=== PATIENT | female | born 1935 | race Caucasian/White ===

== ENCOUNTER 2017-04-17 06:52 | Inpatient (IN) | payer MEDICARE, BC ==
[2017-04-17] VITALS (10 sets, daily range): BP systolic 139–198; BP diastolic 62–77; PULSE 70–84; RESP 20–30; TEMP 97.8–99.4; O2SAT 92–100
[~2017-04-17] VITALS: Ht 162.6 cm; Wt 72.1 kg
[2017-04-17] MEDS ORDERED: SODIUM CHLORIDE 0.9% FLUSH 10 ML FLUSH IVF PRN (07:00)
--- NOTE | 2017-04-17 07:08 | PD ---
HPI Chief Complaint: Respiratory Distress Time Seen by Provider: 07:00 Travel History International Travel<30 days: No Contact w/Intl Traveler<30days: No Traveled to known affect area: No History of Present Illness HPI 81-year-old female patient presents to the ER brought in by EMS, apparently has been having several days of worsening shortness of breath and dyspnea on exertion, was initially saturating at 70% according to EMS, they had given her Lasix, nitroglycerin, and put her on BiPAP. She reports feeling some improvement with the treatment. She currently is still complaining of shortness of breath. She denies any fevers, vomiting, chest pains, or other symptoms. Modifying Factors: None Associated Signs & Symptoms: Shortness of breath, dyspnea on exertion Risk Factors: None PFSH Past Medical History ?: Not Social History Tobacco Use: No Allergies-Medications (Allergen,Severity, Reaction): Coded Allergies: No Known Allergies (Unverified , 04/17/17) Review of Systems Except as stated in HPI: all other systems reviewed are Neg Physical Exam Narrative GENERAL: Well-developed elderly white female patient currently in moderate respiratory distress on BiPAP. Awake and oriented 3. Able to answer words at a time. SKIN: Focused skin assessment warm/dry. HEAD: Atraumatic. Normocephalic. EYES: Pupils equal and round. No scleral icterus. No injection or drainage. ENT: No nasal bleeding or discharge. Mucous membranes pink and moist. NECK: Trachea midline. Supple. CARDIOVASCULAR: Regular rate and rhythm. No murmur appreciated. RESPIRATORY: Moderate accessory muscle use. Intermittent wheezes to rule out with decreased breath sounds at the bases. Breath sounds equal bilaterally. GASTROINTESTINAL: Abdomen soft, non-tender, nondistended. Hepatic and splenic margins not palpable. MUSCULOSKELETAL: No obvious deformities. No clubbing. No cyanosis. Bilateral was 1 pitting edema the legs. NEUROLOGICAL: Awake and alert. No obvious cranial nerve deficits. Motor grossly within normal limits. Normal speech. PSYCHIATRIC: Appropriate mood and affect; insight and judgment normal. Data Data Last Documented VS Vital Signs Date Time Temp Pulse Resp B/P (MAP) Pulse Ox O2 Delivery O2 Flow Rate FiO2 04/17/17 07:00 84 30 177/77 (110) 95 Orders Orders Complete Blood Count With Diff (04/17/17 07:00) Comprehensive Metabolic Panel (04/17/17 07:00) B-Type Natriuretic Peptide (04/17/17 07:00) Act Partial Throm Time (Ptt) (04/17/17:00) Prothrombin Time / Inr (Pt) (04/17/17:00) Ckmb (Isoenzyme) Profile (04/17/17:00) Troponin I (04/17/17 07:00) Blood Culture (04/17/17:00) Iv Access Insert/Monitor (04/17/17:00) Electrocardiogram (04/17/17:00) Ecg Monitoring (04/17/17:00) Oximetry (04/17/17:00) Oxygen Administration (04/17/17:00) Chest, Single Ap (04/17/17:) Sodium Chloride 0.9% Flush (Ns Flush) (04/17/17:00) Resp Bipap / Cpap Non Invas Vt (04/17/17:00) MDM Medical Decision Making Medical Screen Exam Complete: Yes Emergency Medical Condition: Yes Medical Record Reviewed: Yes Interpretation(s) EKG shows NSR, no ST elevation or depression, and no arrhythmias. No significant T-wave inversions. Differential Diagnosis Dyspnea on exertion/shortness of breath: CHF versus COPD versus pneumonia Narrative Course BiPAP was continued in the ER. I have discussed CODE STATUS with the patient and she wants to remain full code. Lab work and chest x-ray ordered for the patient. Planning to admit for further treatment. Physician Communication Physician Communication Case is signed out at [address] Sepulveda for further treatment and disposition. Diagnosis Primary Impression: Dyspnea on exertion Admitting Information Admitting Physician Requests: Admit Roddy Luo MD Apr 17, 2017 07:07
--- NOTE | 2017-04-17 07:25 | RADRPT ---
EXAM DATE/TIME: 04/17/2017 07:03 [facility] COMPARISON: No previous studies available for comparison. INDICATIONS : Short of breath MEDICAL HISTORY : None. SURGICAL HISTORY : None. ENCOUNTER: Initial ACUITY: 1 day PAIN SCORE: Non-responsive. LOCATION: chest FINDINGS: The heart is mildly enlarged. There are advanced, chronic appearing interstitial changes within the p ulmonary parenchyma. No effusion is seen. The exam demonstrates calcified nodules along the left chest wall. The patient appears to be post lef t mastectomy. The visualized bony structures demonstrate degenerative changes but are otherwise intact. CONCLUSION: 1. Cardiomegaly. 2. There are advanced interstitial changes which appear chronic. There is no pleural effusion. 3. There are calcified nodules in the chest wall along the left axillary region. The patient is post left mastectomy. No prior imaging is available to assess for stability. The calcified nature of these would suggest they're likely benign. Bradley Rincon MD on April 17, 2017 at 7:21 Board Certified Radiologist. This report was verified electronically.
[2017-04-17 07:33] LABS: AUTOMATED NEUTROPHIL # 9.6 TH/MM3 (1.8-7.7); BASOPHIL # 0.1 TH/MM3 (0-0.2); BASOPHIL % 0.8 % (0.0-2.0); EOSINOPHIL # 0.2 TH/MM3 (0-0.4); HEMATOCRIT 33.8 % (35.0-46.0); HEMO FLAGS DIFF FINAL; LYMPH % 10.1 % (9.0-44.0); LYMPHOCYTE # 1.2 TH/MM3 (1.0-4.8); MEAN CELL VOLUME 78.1 FL (80.0-100.0); MEAN CORPUSCULAR HEMOGLOBIN 26.3 PG (27.0-34.0); MEAN CORPUSCULAR HGB CONC 33.7 % (32.0-36.0); MONO % 8.9 % (0.0-8.0); NEUT % 78.2 % (16.0-70.0); PLATELET COUNT 377 TH/MM3 (150-450); RED BLOOD COUNT 4.33 MIL/MM3 (4.00-5.30); WHITE BLOOD COUNT 12.2 TH/MM3 (4.0-11.0)
[2017-04-17 07:36] LABS: INTERNATIONAL NORMALIZED RATIO 0.9 RATIO; PROTHROMBIN TIME - PATIENT 10.1 SEC (9.8-11.6)
[2017-04-17 07:44] LABS: ALKALINE PHOSPHATASE 100 U/L (45-117); ALT (GPT) 18 U/L (10-53); ANION GAP 7 MEQ/L (5-15); AST (GOT) 14 U/L (15-37); BICARBONATE 27.2 MEQ/L (21.0-32.0); BLOOD UREA NITROGEN 16 MG/DL (7-18); CHLORIDE 98 MEQ/L (98-107); GLOMERULAR FILTRATION RATE 66 ML/MIN (>89); POTASSIUM 4.6 MEQ/L (3.5-5.1); SODIUM (NA) 132 MEQ/L (136-145); TOTAL BILIRUBIN ADULT 0.4 MG/DL (0.2-1.0)
[2017-04-17 07:45] LABS: CREATINE KINASE 75 U/L (26-192)
[2017-04-17] MEDS ORDERED: NITROGLYCERIN 2% OINT 1 GM PACKET TOPICAL ONE (07:45)
[2017-04-17] MEDS ORDERED: ENALAPRILAT 1.25 MG/ML VIAL IV PUSH ONE (07:45)
[2017-04-17] MEDS ORDERED: ASPIRIN 325 MG TAB PO ONE (07:45)
[2017-04-17] MEDS ORDERED: BETA0.0554 TOPICAL (07:54)
[2017-04-17] MEDS ORDERED: UBID50CA4 PO (07:54)
[2017-04-17] MEDS ORDERED: FERR325C PO (07:54)
[2017-04-17] MEDS ORDERED: ISOS60TA PO (07:54)
[2017-04-17] MEDS ORDERED: [UNRECOGNIZED DRUG - MIXTURE] (07:54)
[2017-04-17] MEDS ORDERED: ESOM1CAP16 PO (07:54)
[2017-04-17] MEDS ORDERED: ASPI81CH CHEW (07:54)
[2017-04-17] MEDS ORDERED: JANU50TA8 PO (07:54)
[2017-04-17] MEDS ORDERED: CARV12.52 PO (07:54)
[2017-04-17] MEDS ORDERED: ATOR10TA15 PO (07:54)
[2017-04-17] MEDS ORDERED: FURO20TA PO (07:54)
[2017-04-17] MEDS ORDERED: NITR1SUB3 SL (07:54)
[2017-04-17] MEDS ORDERED: AZEL1SPR2 EACH NARE (07:54)
[2017-04-17] MEDS ORDERED: RAMI10CA PO (07:54)
[2017-04-17] MEDS ORDERED: CHOL1CAP8 PO (07:54)
[2017-04-17] MEDS ORDERED: AMLO5TAB2 PO (07:54)
[2017-04-17] MEDS ORDERED: CALCTAB19 PO (07:54)
[2017-04-17] MEDS ORDERED: CYAN500S SL (07:54)
[2017-04-17] MEDS ORDERED: IOHEXOL 350 MG/ML 10 ML VIAL (for RAD DIAG) IVCONTRAST ONE (08:17)
--- NOTE | 2017-04-17 08:17 | PD ---
Data Data Last Documented VS Vital Signs Date Time Temp Pulse Resp B/P (MAP) Pulse Ox O2 Delivery O2 Flow Rate FiO2 04/17/17 09:25 70 24 152/70 (97) 94 Nasal Cannula 4.00 04/17/17 07:27 100 04/17/17 07:27 98.2 Orders Orders Complete Blood Count With Diff (04/17/17 07:00) Comprehensive Metabolic Panel (04/17/17 07:00) B-Type Natriuretic Peptide (04/17/17 07:00) Act Partial Throm Time (Ptt) (04/17/17 07:00) Prothrombin Time / Inr (Pt) (04/17/17 07:00) Ckmb (Isoenzyme) Profile (04/17/17 07:00) Troponin I (04/17/17 07:00) Blood Culture (04/17/17 07:00) Iv Access Insert/Monitor (04/17/17 07:00) Electrocardiogram (04/17/17 07:00) Ecg Monitoring (04/17/17 07:00) Oximetry (04/17/17 07:00) Oxygen Administration (04/17/17 07:00) Chest, Single Ap (04/17/17 07:00) Sodium Chloride 0.9% Flush (Ns Flush) (04/17/17 07:00) Resp Bipap / Cpap Non Invas Vt (04/17/17 07:00) Lactic Acid Sepsis Protocol (04/17/17 07:08) Ct Pulmonary Angiogram (04/17/17 ) Aspirin (Aspirin) (04/17/17 07:45) Urinary Catheter Insert/Apply (04/17/17 07:41) Nitroglycerin 2% Oint (Nitroglycerin 2% (04/17/17 07:45) Enalaprilat Inj (Vasotec Inj) (04/17/17 07:45) Iohexol 350 Inj (Omnipaque 350 Inj) (04/17/17 08:17) Albuterol-Ipratropium Neb (Duoneb Neb) (04/17/17 09:00) Aztreonam Inj (Azactam Inj) (04/17/17 09:00) Azithromycin Inj (Zithromax Inj) (04/17/17 09:00) Admit Order (Ed Use Only) (04/17/17 09:37) Labs Laboratory Tests Test 04/17/17 07:09 White Blood Count 12.2 TH/MM3 Red Blood Count 4.33 MIL/MM3 Hemoglobin 11.4 GM/DL Hematocrit 33.8 % Mean Corpuscular Volume 78.1 FL Mean Corpuscular Hemoglobin 26.3 PG Mean Corpuscular Hemoglobin Concent 33.7 % Red Cell Distribution Width 16.0 % Platelet Count 377 TH/MM3 Mean Platelet Volume 8.5 FL Neutrophils (%) (Auto) 78.2 % Lymphocytes (%) (Auto) 10.1 % Monocytes (%) (Auto) 8.9 % Eosinophils (%) (Auto) 2.0 % Basophils (%) (Auto) 0.8 % Neutrophils # (Auto) 9.6 TH/MM3 Lymphocytes # (Auto) 1.2 TH/MM3 Monocytes # (Auto) 1.1 TH/MM3 Eosinophils # (Auto) 0.2 TH/MM3 Basophils # (Auto) 0.1 TH/MM3 CBC Comment DIFF FINAL Differential Comment Prothrombin Time 10.1 SEC Prothromb Time International Ratio 0.9 RATIO Activated Partial Thromboplast Time 24.0 SEC Blood Urea Nitrogen 16 MG/DL Creatinine 0.83 MG/DL Random Glucose 244 MG/DL Total Protein 7.3 GM/DL Albumin 3.0 GM/DL Calcium Level 9.1 MG/DL Alkaline Phosphatase 100 U/L Aspartate Amino Transf (AST/SGOT) 14 U/L Alanine Aminotransferase (ALT/SGPT) 18 U/L Total Bilirubin 0.4 MG/DL Sodium Level 132 MEQ/L Potassium Level 4.6 MEQ/L Chloride Level 98 MEQ/L Carbon Dioxide Level 27.2 MEQ/L Anion Gap 7 MEQ/L Estimat Glomerular Filtration Rate 66 ML/MIN Lactic Acid Level 1.5 mmol/L Total Creatine Kinase 75 U/L Troponin I LESS THAN 0.02 NG/ML B-Type Natriuretic Peptide 200 PG/ML [facility] Medical Record Reviewed: Yes Supervised Visit with DILLON: Yes Differential Diagnosis CHF, PE, pneumonia Narrative Course I have reviewed the patient's electronic medical record. I reviewed her [facility] medical report detailing her medical history and medications. This patient is checked out to me by Dr. Brooks at 7 AM. The patient came in just a few minutes prior to that and Dr. Brooks initiated the workup. This patient arrives critically ill. She has had shortness of breath for 2 days as well as periodic exertional chest heaviness in the center sternum. She is a CAD with a 2004 circumflex angioplasty, diabetic and hypertensive and hyperlipidemic patient. She reports that she is visiting here from [place] for a week. She did have a stress test in July she says. She denies HI or congestive heart failure or pulmonary disease history. She was a smoker in the past but no longer smokes. She arrives in respiratory failure with saturations in the 70s. She was placed on BiPAP. When I reevaluated her on BiPAP, she is less short of breath but still not doing well. She is no longer having chest pain at this time. Extended cardiac monitoring reveals sinus rhythm in the 80s. Saturation on BiPAP is excellent but as soon as I take her off the BiPAP and place her on 5 L nasal cannula she drops into the mid 80s. I reviewed her chest x-ray which shows cardiomegaly. I was not clear if the x- ray represents pulmonary edema versus chronic interstitial changes and the radiologist favors chronic interstitial changes. There are no priors to compare. I reviewed her EKG which shows sinus rhythm with no acute ST elevation but there are some downsloping ST depressions in lateral leads. I gave her an aspirin She had 70 mg IV Lasix given by paramedics in route CBC is normal Metabolic profile is normal LFTs are normal CK is negative Troponin is negative BNP is 200, equivocal Coagulation studies are normal CT pulmonary angiogram is negative for PE. There is consolidation that could be consistent with a pneumonia. Patient has Improved significantly. I weaned her down to 4 L nasal cannula and she saturates at 95% on that. She reports significant improvement clinically. She diuresed about 600 cc of clear yellow urine. Patient requires hospitalization but at this point I don't think she needs intensive care. I've discussed with the hospitalist will admit Critical Care Narrative Aggregate critical care time was 40 minutes. Time to perform other separately billable procedures was not included in the critical care time. My time did not include minutes spent treating any other patients simultaneously or on activities that did not directly contribute to the patient's treatment. The services I provided to this patient were to treat and/or prevent clinically significant deterioration that could result in: Respiratory failure, cardiopulmonary arrest, hypoxemic brain injury, cardiac arrhythmia I provided critical care services requiring my management, as noted below: Chart data review, documentation time, medication orders and management, vital sign assessments/reviewing monitor data, ordering and reviewing lab tests, ordering and interpreting/reviewing x-rays and diagnostic studies, care of the patient and discussion of the patient with the admitting physicians. Diagnosis Primary Impression: Acute respiratory failure with hypoxia Additional Impression: Chest pain in adult Vicente Moore MD Apr 17, 2017 07:39
--- NOTE | 2017-04-17 08:40 | RADRPT ---
EXAM DATE/TIME: 04/17/2017 08:09 [facility] COMPARISON: CHEST SINGLE AP, April 17, 2017, 7:03. INDICATIONS : Shortness of breath and substernal chest pain today. IV CONTRAST: 70 cc Omnipaque 350 (iohexol) IV RADIATION DOSE: 13.81 CTDIvol (mGy) MEDICAL HISTORY : mitral valve failure SURGICAL HISTORY : None. ENCOUNTER: Initial ACUITY: 1 day PAIN SCALE: 6/10 LOCATION: substernal chest TECHNIQUE: Volumetric scanning of the chest was performed using a pulmonary embolism protocol MIP images were re constructed. Using automated exposure control and adjustment of the mA and/or kV according to patien t size, radiation dose was kept as low as reasonably achievable to obtain optimal diagnostic quality images. DICOM format image data is available electronically for review and comparison. Follow-up recommendations for detected pulmonary nodules are based at a minimum on nodule size and pa tient risk factors according to Fleischner Society Guidelines. FINDINGS: The examination is of adequate diagnostic quality. No pulmonary embolus is identified. The heart is mildly enlarged. There is atherosclerotic plaquing in the coronary arteries. There are o ld, calcified lymph nodes seen in the right dahlia and the mediastinum. Imaging through the pulmonary parenchyma demonstrates interstitial fibrotic changes. There is a small effusion on the right. There are consolidative changes in the right lower lobe. There is infiltrate and consolidation in the right upper lobe. Note is also made of a 2.5 x 1.5 cm pleural-based nodule along the posterior aspect of the left upper lobe. Examination the osseous structures demonstrate multiple old left-sided rib fractures. There is exuber ant callus and heterotopic bone around the areas of fracture. Note is made of a left mastectomy. CONCLUSION: 1. No pulmonary embolus is identified. 2. Interstitial fibrotic changes. 3. There are old calcified nodes in the right dahlia. 4. There is a small right basilar effusion. 5. Mild cardiomegaly. 6. There is infiltrate in the right upper lobe with consolidation concerning for pneumonia. 7. There are consolidative change in both lung bases. 8. 2.5 x 1.5 cm pleural-based nodule on the left. This is nonspecific in appearance by CT. 9. Old rib fractures on the left with exuberant calcified callus formation. Bradley Rincon MD on April 17, 2017 at 8:32 Board Certified Radiologist. This report was verified electronically.
[2017-04-17] MEDS ORDERED: AZITHROMYCIN INJ 500 MG in SODIUM CHLOR 0.9% 250 ML INJ 250 ML IV ONE (09:00)
[2017-04-17] MEDS ORDERED: AZTREONAM INJ 2,000 MG in SODIUM CHLORIDE 0.9% INJ 100 ML IV ONE (09:00)
[2017-04-17] MEDS ORDERED: RESP: ALBUTEROL 2.5 MG/IPRATROPIUM 0.5 MG NEB (SCH) NEB ONE (09:00)
[2017-04-17] MEDS ORDERED: ACETAMINOPHEN 325 MG TAB PO PRN ×2 (10:30)
[2017-04-17] MEDS ORDERED: ENALAPRILAT 2.5 MG/2 ML VIAL IV PUSH PRN (10:30)
[2017-04-17] MEDS ORDERED: RESP: ALBUTEROL 2.5 MG/IPRATROPIUM 0.5 MG NEB (PRN) NEB (10:30)
[2017-04-17] MEDS ORDERED: SODIUM CHLORIDE 0.9% FLUSH 10 ML FLUSH IV FLUSH PRN (10:30)
[2017-04-17] MEDS ORDERED: MAGNESIUM HYDROXIDE SUSP 30 ML CUP PO PRN (10:30)
[2017-04-17] MEDS ORDERED: NALOXONE HCL 0.4 MG/ML AMP IV PUSH PRN (10:30)
[2017-04-17] MEDS ORDERED: ONDANSETRON HCL 4 MG/2 ML VIAL IVP PRN (10:30)
[2017-04-17] MEDS ORDERED: NITROGLYCERIN 0.4 MG SL 25 TABS/BTL SL PRN (10:45)
[2017-04-17] MEDS ORDERED: GLUCAGON 1 MG/ML VIAL OTHER PRN (10:45)
[2017-04-17] MEDS ORDERED: DEXTROSE 50% IN WATER 50 ML VIAL(D50) IV PUSH PRN (10:45)
--- NOTE | 2017-04-17 10:50 | HHI.HP ---
HPI Service [facility] Primary Care Physician Unknown Admission Diagnosis acute hypoxic resp failure, chest pain Diagnoses: (1) Acute respiratory failure with hypoxia (2) Flash pulmonary edema (3) CHF exacerbation (4) Atypical chest pain (5) Benign hypertension (6) Hyperlipidemia (7) Diabetes mellitus, type II Chief Complaint: Shortness of breath Travel History International Travel<30 Days: No Contact w/Intl Traveler <30 Da: No Traveled to Known Affected Are: No History of Present Illness 81-year-old female with a history of diabetes type 2, CHF, hypertension was brought to the ED for evaluation of worsening symptoms or shortness of breath times several days duration along with an acute onset of substernal chest pain without any radiation and rated 7/10 in intensity. Patient has been have been traveling from [place] to [place] and now to [place]. Initially left [place] 2 weeks ago, however have arrived here in [facility] for a reunion since Tuesday. She noted over the past few days worsening shortness of breath on exertion without any symptoms of cough or chest pain. However early this morning at 5 AM, patient complains of acute onset of chest pain along with severe dyspnea and requested that her take her to the hospital. She has no febrile episode or denies any bladder or bowel dysfunction. Patient had a history of cardiac stent placed, and the last one was placed in 2002 -2003. There has been no change in her medications. Review of Systems Except as stated in HPI: all other systems reviewed are Neg Past Family Social History Past Medical History Hypertension Hyperlipidemia Diabetes type 2 History of breast cancer Past Surgical History Left breast surgery Cataract surgery Cardiac stents 2 Reported Medications See EMR Allergies: Coded Allergies: Penicillins (Verified Allergy, Unknown, 04/17/17) Sulfa (Sulfonamide Antibiotics) (Verified Allergy, Unknown, 04/17/17) Family History Mother from massive heart attack post surgery Father from complication of emphysema Social History Patient is a former smoker, quit 5 years ago. She denies alcohol or illicit drug intake. Physical Exam Vital Signs Vital Signs Date Time Temp Pulse Resp B/P (MAP) Pulse Ox O2 Delivery O2 Flow Rate FiO2 04/17/17 10:17 74 24 139/66 (90) 95 4.00 04/17/17 09:25 70 24 152/70 (97) 94 Nasal Cannula 4.00 04/17/17 09:25 70 28 152/70 (97) 95 Nasal Cannula 4.00 04/17/17 08:34 78 22 171/72 (105) 100 Non-Rebreather 5.00 04/17/17 08:33 100 Non-Rebreather 5.00 04/17/17 07:27 BiPAP 100 04/17/17 07:27 98.2 72 26 198/77 (117) 100 BiPAP 100 04/17/17 07:27 73 27 100 BiPAP 100 04/17/17 07:27 100 BiPAP 100 04/17/17 07:15 86 Nasal Cannula 4.00 04/17/17 07:00 84 30 177/77 (110) 95 04/17/17 06:50 97 100 Physical Exam GENERAL: This is a well-nourished, well-developed patient, in no apparent distress. SKIN: No rashes, ecchymoses or lesions. Cool and dry. HEAD: Atraumatic. Normocephalic. No temporal or scalp tenderness. EYES: Pupils equal round and reactive. Extraocular motions intact. No scleral icterus. No injection or drainage. ENT: Nose without bleeding, purulent drainage or septal hematoma. Throat without erythema, tonsillar hypertrophy or exudate. Uvula midline. Airway patent. NECK: Trachea midline. No JVD or lymphadenopathy. Supple, nontender, no meningeal signs. CARDIOVASCULAR: Regular rate and rhythm with III/ SAGAR RESPIRATORY: Clear to auscultation. Breath sounds equal bilaterally. No wheezes , rales, or rhonchi. GASTROINTESTINAL: Abdomen soft, non-tender, nondistended. No hepato-splenomegaly , or palpable masses. No guarding. MUSCULOSKELETAL: Extremities without clubbing, cyanosis, or edema. No joint tenderness, effusion, or edema noted. No calf tenderness. Negative Homans sign bilaterally. NEUROLOGICAL: Awake and alert. Cranial nerves II through XII intact. Motor and sensory grossly within normal limits. Five out of 5 muscle strength in all muscle groups. Normal speech. Laboratory Laboratory Tests Test 04/17/17 07:09 White Blood Count 12.2 Red Blood Count 4.33 Hemoglobin 11.4 Hematocrit 33.8 Mean Corpuscular Volume 78.1 Mean Corpuscular Hemoglobin 26.3 Mean Corpuscular Hemoglobin Concent 33.7 Red Cell Distribution Width 16.0 Platelet Count 377 Mean Platelet Volume 8.5 Neutrophils (%) (Auto) 78.2 Lymphocytes (%) (Auto) 10.1 Monocytes (%) (Auto) 8.9 Eosinophils (%) (Auto) 2.0 Basophils (%) (Auto) 0.8 Neutrophils # (Auto) 9.6 Lymphocytes # (Auto) 1.2 Monocytes # (Auto) 1.1 Eosinophils # (Auto) 0.2 Basophils # (Auto) 0.1 CBC Comment DIFF FINAL Differential Comment Prothrombin Time 10.1 Prothromb Time International Ratio 0.9 Activated Partial Thromboplast Time 24.0 Blood Urea Nitrogen 16 Creatinine 0.83 Random Glucose 244 Total Protein 7.3 Albumin 3.0 Calcium Level 9.1 Alkaline Phosphatase 100 Aspartate Amino Transf (AST/SGOT) 14 Alanine Aminotransferase (ALT/SGPT) 18 Total Bilirubin 0.4 Sodium Level 132 Potassium Level 4.6 Chloride Level 98 Carbon Dioxide Level 27.2 Anion Gap 7 Estimat Glomerular Filtration Rate 66 Lactic Acid Level 1.5 Total Creatine Kinase 75 Troponin I LESS THAN 0.02 B-Type Natriuretic Peptide 200 Date/Time Source Procedure Growth Status 04/17/17 07:08 Blood Peripheral Aerobic Blood Culture Pending Received 04/17/17 07:08 Blood Peripheral Anaerobic Blood Culture Pending Received Result Diagram: 04/17/17 0704/17/17708 Caprini VTE Risk Assessment Caprini VTE Risk Assessment: Mod/High Risk (score >= 2) Caprini Risk Assessment Model Point Value = 1 Point Value = 2 Point Value = 3 Point Value = 5 Age 41-60 Minor surgery BMI > 25 kg/m2 Swollen legs Varicose veins or History of unexplained or recurrent spontaneous Oral contraceptives or hormone replacement Sepsis (< 1 month) Serious lung disease, including pneumonia (< 1 month) Abnormal pulmonary function Acute myocardial infarction Congestive heart failure (< 1 month) History of inflammatory bowel disease Medical patient at bed rest Age 61-74 Arthroscopic surgery Major open surgery (> 45 min) Laparoscopic surgery (> 45 min) Malignancy Confined to bed (> 72 hours) Immobilizing plaster cast Central venous access Age >= 75 History of VTE Family history of VTE Factor V Leiden Prothrombin [id number] Lupus anticoagulant Anticardiolipin antibodies Elevated serum homocysteine Heparin-induced thrombocytopenia Other congenital or acquired thrombophilia Stroke (< 1 month) Elective arthroplasty Hip, pelvis, or leg fracture Acute spinal cord injury (< 1 month) Prophylaxis Regimen Total Risk Factor Score Risk Level Prophylaxis Regimen 0-1 Low Early ambulation 2 Moderate Order ONE of the following: *Sequential Compression Device (SCD) *Heparin 5000 units SQ BID 3-4 Higher Order ONE of the following medications: *Heparin 5000 units SQ TID *Enoxaparin/Lovenox 40 mg SQ daily (WT < 150 kg, CrCl > 30 mL/min) *Enoxaparin/Lovenox 30 mg SQ daily (WT < 150 kg, CrCl > 10-29 mL/min) *Enoxaparin/Lovenox 30 mg SQ BID (WT < 150 kg, CrCl > 30 mL/min) AND/OR *Sequential Compression Device (SCD) 5 or more Highest Order ONE of the following medications: *Heparin 5000 units SQ TID (Preferred with Epidurals) *Enoxaparin/Lovenox 40 mg SQ daily (WT < 150 kg, CrCl > 30 mL/min) *Enoxaparin/Lovenox 30 mg SQ daily (WT < 150 kg, CrCl > 10-29 mL/min) *Enoxaparin/Lovenox 30 mg SQ BID (WT < 150 kg, CrCl > 30 mL/min) AND *Sequential Compression Device (SCD) Assessment and Plan Problem List: (1) Diabetes mellitus, type II ICD Code: E11.9 - Type 2 diabetes mellitus without complications (2) Hyperlipidemia ICD Code: E78.5 - Hyperlipidemia, unspecified (3) Benign hypertension ICD Code: I10 - Essential (primary) hypertension (4) CHF exacerbation ICD Code: I50.9 - Heart failure, unspecified (5) Flash pulmonary edema ICD Code: J81.0 - Acute pulmonary edema (6) Acute respiratory failure with hypoxia ICD Code: J96.01 - Acute respiratory failure with hypoxia Status: Acute (7) Atypical chest pain ICD Code: R07.89 - Other chest pain Assessment and Plan 81-year-old female with Acute respiratory failure with hypoxia Patient responded with treatment with BiPAP, bronchodilator, IV Lasix 1 in ED Currently on nasal cannula 2 L oxygen Treat for CHF exacerbation CHF exacerbation unknown type Lasix 20 mg IV twice a day Resume Imdur ACS ruled out per protocol with serial cardiac enzyme and EKGs Check 2-D echo Atypical chest pain CTA noted and reviewed by me and negative for pulmonary edema Patient with prior history of cardiac stents x 2 ACS ruled out per protocol with serial cardiac enzyme and EKGs Check 2-D echo and consider Lexiscan stress test Nitroglycerin when necessary, Coreg, aspirin, Lipitor, Lovenox Pulmonary infiltrate on CTA Status post azithromycin and Azactam Start Levaquin 750 mg daily 04/18/17 Hypertension Labile BP Resume Coreg, Norvasc Diabetes type 2 Labile blood glucose Start insulin sliding scale and consider NovoLog 70/30 Check hemoglobin A1c DVT prophylaxis: Lovenox Code Status Full code Discussed Condition With Patient, , ED physician Physician Certification 2 Midnight Certification Type: Admission for Inpatient Services Order for Inpatient Services The services are ordered in accordance with Medicare regulations or non- Medicare payer requirements, as applicable. In the case of services not specified as inpatient-only, they are appropriately provided as inpatient services in accordance with the 2-midnight benchmark. Estimated LOS (days): 2 days is the estimated time the patient will need to remain in the hospital, assuming treatment plan goals are met and no additional complications. Post-Hospital Plan: Not yet determined Juan A Jimenez MD Apr 17, 2017 10:50
--- NOTE | 2017-04-17 12:58 | EKG ---
Date Performed: 04/17/2017 Time Performed: 07:01:13 PTAGE: 81 years EKG: Sinus rhythm POSSIBLE ANTERIOR MYOCARDIAL INFARCTION BORDERLINE ECG NO PREVIOUS TRACING DOCTOR: Bolivar Hardy Interpretating Date/Time 04/17/2017 12:55:53
[2017-04-17] MEDS: ISOSORBIDE MONONITRATE 60 MG TAB PO SCH (13:07)
[2017-04-17] MEDS: INSULIN ASPART SUPPLEMENTAL SCALE SQ SCH ×3 (13:08→21:00)
[2017-04-17] MEDS: CARVEDILOL 12.5 MG TAB PO SCH ×2 (13:08→21:02)
[2017-04-17] MEDS: amLODIPine BESYLATE 5 MG TAB PO SCH (13:08)
[2017-04-17] MEDS: FUROSEMIDE 20 MG/2 ML VIAL IV PUSH SCH (17:00)
[2017-04-17] MEDS: SODIUM CHLORIDE 0.9% FLUSH 10 ML FLUSH IV FLUSH SCH (21:00)
[2017-04-17] MEDS: ATORVASTATIN 10 MG TAB PO SCH (21:02)
[2017-04-17] MEDS: RAMIPRIL 5 MG CAP PO SCH (21:02)
--- NOTE | 2017-04-17 22:50 | ECHRPT ---
Indication: HEART FAILURE CONCLUSIONS Normal left ventricular size. Wall thickness is measured at the upper limits of normal. The left ventricular systolic function is low normal with an estimated ejection fraction in the rang e of 50- 55%. Mitral annular calcification is present. Severe aortic valve stenosis. Aortic valve area is 0.80cm. Aortic valve mean gradient is 46 mmHg. Aortic valve max gradient is 89 mmHg. V max is 471 cm/s There is estimated mild pulmonary hypertension present ( 40mmHg). Trivial pulmonary valve regurgitation. BP: / HR: Rhythm: MEASUREMENTS (Male / Female) Normal Values Technical Quality:Good 2D ECHO LV Diastolic Diameter PLAX 5.1 cm 4.2 - 5.9 / 3.9 - 5.3 cm LV Systolic Diameter PLAX 3.9 cm IVS Diastolic Thickness 1.3 cm 0.6 - 1.0 / 0.6 - 0.9 cm LVPW Diastolic Thickness 0.9 cm 0.6 - 1.0 / 0.6 - 0.9 cm LV Relative Wall Thickness 0.4 RV Internal Dim ED PLAX 2.2 cm LVOT Diameter 2.0 cm LA Systolic Diameter LX 4.0 cm 3.0 - 4.0 / 2.7 - 3.8 cm DOPPLER AV Peak Velocity 471.0 cm/s AV Peak Gradient 88.7 mmHg AV Mean Gradient 46.0 mmHg AV Velocity Time Integral 128.0 cm LVOT Peak Velocity 120.0 cm/s LVOT Peak Gradient 5.8 mmHg LVOT Velocity Time Integral 34.5 cm AV Area Cont Eq vti 0.8 cm AV Area Cont Eq pk 0.8 cm Mitral E Point Velocity 132.0 cm/s Mitral A Point Velocity 116.0 cm/s Mitral E to A Ratio 1.1 TR Peak Velocity 312.0 cm/s TR Peak Gradient 38.9 mmHg FINDINGS LEFT VENTRICLE Normal left ventricular size. Wall thickness is measured at the upper limits of normal. The left ventricular systolic function is low normal with an estimated ejection fraction in the rang e of 50- 55%. RIGHT VENTRICLE Normal right ventricular size and systolic function. LEFT ATRIUM The left atrial size is normal. RIGHT ATRIUM The right atrial size is normal. ATRIAL SEPTUM Normal atrial septal thickness without atrial level shunting by limited color doppler interrogation. AORTA The aortic root and proximal ascending aorta are normal in size on limited imaging. MITRAL VALVE Mitral annular calcification is present. AORTIC VALVE Moderate to severe aortic valve stenosis. Aortic valve area is 0.80cm. Aortic valve mean gradient is 46 mmHg. Aortic valve max gradient is 89 mmHg. V max is 471 cm/s TRICUSPID VALVE There is estimated mild pulmonary hypertension present ( 40mmHg). PULMONARY VALVE Trivial pulmonary valve regurgitation. VESSELS The inferior vena cava is normal in size. PERICARDIUM No pericardial effusion. Bolivar Hardy MD (Electronically Signed) Final Date:17 April 2017 22:49
[2017-04-18] VITALS (9 sets, daily range): BP systolic 115–150; BP diastolic 53–84; PULSE 60–77; RESP 16–20; TEMP 97–98.8; O2SAT 92–97
[2017-04-18] MEDS: NITROGLYCERIN 2% OINT 1 GM PACKET TOP SCH ×4 (00:22→18:00)
[2017-04-18] MEDS: INSULIN ASPART SUPPLEMENTAL SCALE SQ SCH ×4 (08:00→21:20)
[2017-04-18] MEDS: CARVEDILOL 12.5 MG TAB PO SCH ×2 (08:59→21:19)
[2017-04-18] MEDS: FUROSEMIDE 20 MG/2 ML VIAL IV PUSH SCH ×2 (09:00→18:00)
[2017-04-18] MEDS: SODIUM CHLORIDE 0.9% FLUSH 10 ML FLUSH IV FLUSH SCH ×2 (09:00→21:19)
[2017-04-18] MEDS ORDERED: ENOXAPARIN SODIUM 30 MG/0.3 ML SYRINGE SQ SCH (09:00)
[2017-04-18] MEDS ORDERED: AZELASTINE 0.1% NASAL SCH (09:00)
[2017-04-18] MEDS: amLODIPine BESYLATE 5 MG TAB PO SCH (09:00)
[2017-04-18] MEDS: RAMIPRIL 5 MG CAP PO SCH ×2 (09:00→21:19)
[2017-04-18] MEDS ORDERED: ASPIRIN 81 MG CHEW TAB CHEW SCH (09:00)
[2017-04-18] MEDS: ISOSORBIDE MONONITRATE 60 MG TAB PO SCH (09:00)
[2017-04-18] MEDS: PANTOPRAZOLE SOD 40 MG DELAYED RELEASE TAB PO SCH (09:00)
[2017-04-18] MEDS: LEVOFLOXACIN 500 MG PREMIX INJ 100 ML IV SCH (09:01)
--- NOTE | 2017-04-18 10:45 | HHI.PR ---
Subjective Remarks Written by Jose Coley, acting as scribe for Dr. Jimenez on 04/18/17 at 10: 45. Follow-up visit atypical chest pain, NSTEMI, CHF exacerbation, pneumonia. Patient seen and examined today lying in bed. at bedside. Reports she is doing much better. Chest pain has subsided. Shortness of breath has also subsided. Denies pain and discomfort. Denies fevers, chills, n/v/d. Denies dysuria. Objective Vitals Vital Signs Date Time Temp Pulse Resp B/P (MAP) Pulse Ox O2 Delivery O2 Flow Rate FiO2 04/18/17 08:49 98.3 75 16 135/61 (85) 95 04/18/17 04:00 97.0 18 120/68 (85) 97 04/18/17 00:00 98.4 74 20 132/84 (100) 97 04/17/17 21:01 99.4 79 141/62 (88) 94 04/17/17 16:00 97.8 70 20 140/72 (94) 96 04/17/17 12:00 98.0 70 20 145/64 (91) 92 04/17/17 11:54 I/O 04/17/17 04/17/17 04/17/17 04/18/17 04/18/17 04/18/17 07:00 15:00 23:00 07:00 15:00 23:00 Intake Total 350 ml Output Total 900 ml 1300 ml 400 ml Balance -550 ml -1300 ml -400 ml Intake IV Total 350 ml Output Urine Total 900 ml 1300 ml 400 ml # Voids 2 # Bowel Movements 1 Result Diagram: 04/17/1709 04/17/17 07 Imaging Last Impressions Chest X-Ray 04/17/17 07 Signed Impressions: Service Date/Time: Monday, April 17, 2017 07:03 - CONCLUSION: 1. Cardiomegaly. 2. There are advanced interstitial changes which appear chronic. There is no pleural effusion. 3. There are calcified nodules in the chest wall along the left axillary region. The patient is post left mastectomy. No prior imaging is available to assess for stability. The calcified nature of these would suggest they're likely benign. Bradley Rincon MD CT Angiography 04/17/17 0000 Signed Impressions: Service Date/Time: Monday, April 17, 2017 08:09 - CONCLUSION: 1. No pulmonary embolus is identified. 2. Interstitial fibrotic changes. 3. There are old calcified nodes in the right dahlia. 4. There is a small right basilar effusion. 5. Mild cardiomegaly. 6. There is infiltrate in the right upper lobe with consolidation concerning for pneumonia. 7. There are consolidative change in both lung bases. 8. 2.5 x 1.5 cm pleural-based nodule on the left. This is nonspecific in appearance by CT. 9. Old rib fractures on the left with exuberant calcified callus formation. Bradley Rincon MD Objective Remarks GENERAL: This is a well-nourished, well-developed patient, in no apparent distress. SKIN: Warm and dry HEENT: Normocephalic. Pupils equal round and reactive. Nose without bleeding. Airway patent. NECK: Trachea midline. Supple. CARDIOVASCULAR: Regular rate and rhythm with III/ SAGAR RESPIRATORY: Clear to auscultation. Breath sounds equal bilaterally. No wheezes , rales, or rhonchi. GASTROINTESTINAL: Abdomen soft, non-tender, nondistended. Bowel Sounds normoactive x4. MUSCULOSKELETAL: Extremities without clubbing, cyanosis, or edema. NEUROLOGICAL: Awake and alert. Oriented to time, place, person. No focal neuro deficit. Moves all extremities. Normal speech. A/P Problem List: (1) Diabetes mellitus, type II ICD Code: E11.9 - Type 2 diabetes mellitus without complications (2) Hyperlipidemia ICD Code: E78.5 - Hyperlipidemia, unspecified (3) Benign hypertension ICD Code: I10 - Essential (primary) hypertension (4) CHF exacerbation ICD Code: I50.9 - Heart failure, unspecified (5) Flash pulmonary edema ICD Code: J81.0 - Acute pulmonary edema (6) Acute respiratory failure with hypoxia ICD Code: J96.01 - Acute respiratory failure with hypoxia Status: Acute (7) Atypical chest pain ICD Code: R07.89 - Other chest pain Assessment and Plan Patient is a 81-year-old female with primary medical history of diabetes type 2 , CHF, HTN who came into the ED for worsening symptoms of shortness of breath for several days and acute onset of substernal chest pain. Acute respiratory failure with hypoxia Pneumonia vs CHF exacerbation - Patient responded with treatment with BiPAP, bronchodilator, IV Lasix 1 in ED - Currently on nasal cannula 2 L oxygen - Pulmonary infiltrate on CTA - Patient was given azithromycin and Azactam, switched to Levaquin 750 mg daily. - Continue with DuoNeb's - Monitor respiratory status CHF exacerbation unknown type - Lasix 20 mg IV twice a day - Resume Imdur - 2-D echo showed normal left ventricular size, wall thickness is at the upper limits of normal, LV function ejection fraction 50-55% Atypical chest pain - CTA noted and reviewed by me and negative for pulmonary edema - Patient with prior history of cardiac stents x 2 - ACS rule out CO VS mismatch secondary to CHF exacerbation. Cardiac enzymes elevated. - CT angio no PE - Nitroglycerin when necessary, Coreg, aspirin, Lipitor, Lovenox - Stress test - Consult cardiology for further recommendations - Patient and are not from the area there are just visiting. They have contract consultant in [place] and would prefer to go to [place] if procedures are to be done, but has agreed to to procedures here if there is an immediate need. Hypertension - Labile BP - Resume Coreg, Norvasc - Monitor BP trend Diabetes type 2 - Labile blood glucose - Insulin sliding scale and consider NovoLog 70/30 - Check hemoglobin A1c DVT prophylaxis: Lovenox Discussed with patient, , nursing This note was transcribed by patricia Coley. I, Dr. Juan A Jimenez personally performed the history, physical exam, and medical decision making; and confirmed the accuracy of the information in the transcribed note. Authenticated by Dr. Juan A Jimenez on 04/18/17 at 10:45. Discharge Planning Pending cardiology recommendations. Jose Jeter Apr 18, 2017 10:45 Juan A Jimenez MD Apr 18, 2017 10:45
--- NOTE | 2017-04-18 12:39 | PD.CONS ---
HPI Consult Requested By Primary Care Physician Unknown History of Present Illness 81-year-old female with a history of diabetes type 2, CHF, hypertension was brought to the ED for evaluation of worsening symptoms or shortness of breath times several days duration along with an acute onset of substernal chest pain without any radiation and rated 7/10 in intensity. Patient has been have been traveling from [place] to [place] and now to [place]. Initially left [place] 2 weeks ago, however have arrived here in [facility] for a reunion since Tuesday. She noted over the past few days worsening shortness of breath on exertion without any symptoms of cough or chest pain. However early this morning at 5 AM, patient complains of acute onset of chest pain along with severe dyspnea and requested that her take her to the hospital. She has no febrile episode or denies any bladder or bowel dysfunction. Patient had a history of cardiac stent placed, and the last one was placed in 2002 -2003. There has been no change in her medications. Review of Systems Consitutional: DENIES: Fatigue, Fever, Chills, Weight gain, Weight loss Eyes: DENIES: Amaurosis Fugax, Change in vision HEENT: DENIES: Lightheadedness, Change in hearing Respiratory: COMPLAINS OF: Shortness of breath, DENIES: See HPI, Cough, Snoring , Wheezing, Sputum production Cardiovascular: COMPLAINS OF: Chest pain, DENIES: See HPI, Palpitations, Syncope, Tachycardia Gastrointestinal: DENIES: Nausea, Vomiting, Change in bowel habits, Reflux, Bloody stools, Melena Genitourinary: DENIES: Urinary incontinence, Difficulty voiding Integumentary: DENIES: Rash Neurologic: DENIES: Tingling or numbness, Memory problems, Poor Balance, Stroke symptoms Musculoskeletal: DENIES: Joint pain, Muscle pain, Limited range of motion, Back pain Psychiatric: DENIES: Anxiety, Depression, Sleep disturbances Hematologic: DENIES: Bruising tendencies, Bleeding tendencies Endocrine: DENIES: Weight gain, Weight loss, Thyroid disease Past Family Social History Allergies: Coded Allergies: Penicillins (Verified Allergy, Unknown, 04/17/17) Sulfa (Sulfonamide Antibiotics) (Verified Allergy, Unknown, 04/17/17) Past Medical History Hypertension Hyperlipidemia Diabetes type 2 History of breast cancer Past Surgical History Left breast surgery Cataract surgery Cardiac stents 2 Reported Medications Reported Meds & Active Scripts Active Reported Janumet (Sitagliptin-Metformin) 50-1,000 Mg Tab 1 Tab PO BID Ramipril 10 Mg Cap 10 Mg PO BID Nitroglycerin SL (Nitroglycerin) 0.4 Mg Subl 0.4 Mg SL DIRECTED PRN ONE TABLET UNDER THE TONGUE NEEDED FOR CHEST PAIN, MAY REPEAT EVERY FIVE MINUTES FOR A TOTAL OF 3 DOSES OR CALL 911 IF NO RELIEF [mvt iron folic acid ] Isosorbide Mononitrate ER (Isosorbide Mononitrate) 60 Mg Tab 60 Mg PO DAILY Azelastine Nasal [place] (Azelastine HCl) 0.1% [place] 2 [place] EACH NARE DAILY Iron (Ferrous Sulfate) 325 Mg Cap 325 Mg PO DAILY Furosemide 20 Mg Tab 20 Mg PO DAILY Esomeprazole DR 40 Mg Capdr 40 Mg PO DAILY B-12 (Cyanocobalamin) 500 Mcg Subl 500 Mcg SL DAILY Coenzyme Q-10 (Ubidecarenone) 50 Mg Capsule 100 Mg PO DAILY Vitamin D3 (Cholecalciferol) 400 Unit Cap 800 Units PO DAILY Carvedilol 12.5 Mg Tab 12.5 Mg PO BID Calcium 600+D 200 (Calcium Carbonate-Vitamin D) 600-200 Mg-Unit Tab 1 Tab PO BID Betamethasone Dipropionate Aug Topical 0.05% Cream 1 Applic TOPICAL BID Atorvastatin (Atorvastatin Calcium) 10 Mg Tab 10 Mg PO HS Aspirin 81 Mg Chew 81 Mg CHEW DAILY Amlodipine (Amlodipine Besylate) 5 Mg Tab 5 Mg PO DAILY Active Ordered Medications Current Medications Medications (Trade) Dose Ordered Sig/Roxie Route Start Time Stop Time Status Last Admin (NS Flush) 2 ml UNSCH PRN IV FLUSH 04/17/17 10:30 (NS Flush) 2 ml BID IV FLUSH 04/17/17 21:00 04/18/17 09:00 (Tylenol) 650 mg Q4H PRN PO 04/17/17 10:30 (Zofran Inj) 4 mg Q6H PRN IVP 04/17/17 10:30 (Tylenol) 650 mg Q6H PRN PO 04/17/17 10:30 (Narcan Inj) 0.4 mg UNSCH PRN IV PUSH 04/17/17 10:30 (Milk Of Magnesia Liq) 30 ml Q12H PRN PO 04/17/17 10:30 (Lovenox Inj) 30 mg Q24H SQ 04/18/17 09:00 04/18/17 09:00 (Duoneb Neb) 1 ampule Q2HR NEB PRN NEB 04/17/17 10:30 (Vasotec Inj) 2.5 mg Q6H PRN IV PUSH 04/17/17 10:30 (Norvasc) 5 mg DAILY PO 04/17/17 12:00 04/18/17 09:00 (Aspirin Chew) 81 mg DAILY CHEW 04/18/17 09:00 04/18/17 08:59 (Lipitor) 10 mg HS PO 04/17/17 21:00 04/17/17 21:02 (Coreg) 12.5 mg BID PO 04/17/17 12:00 04/18/17 08:59 (Imdur) 60 mg DAILY PO 04/17/17 12:00 04/18/17 09:00 Patient Own Medication PT OWN MED: AZELAST... DAILY NASAL 04/18/17 09:00 Future Hold (Protonix) 40 mg DAILY PO 04/18/17 09:00 04/18/17 09:00 (Altace) 10 mg BID PO 04/17/17 21:00 04/18/17 09:00 (Lasix Inj) 20 mg BID@09,18 IV PUSH 04/17/17 18:00 04/18/17 09:00 (D50w (Vial) Inj) 50 ml UNSCH PRN IV PUSH 04/17/17 10:45 (Glucagon Inj) 1 mg UNSCH PRN OTHER 04/17/17 10:45 (NovoLOG SUPPLEMENTAL SCALE) 1 ACHS SLIDING SCALE SQ 04/17/17 12:00 04/17/17 21:00 (Nitrostat Sl) 0.4 mg Q5M PRN SL 04/17/17 10:45 Levofloxacin/ Dextrose 100 ml @ 100 mls/hr Q24H IV 04/18/17 09:00 04/18/17 09:01 (Nitroglycerin 2% Oint) 1 inch Q6HR TOP 04/18/17 00:00 04/18/17 05:43 Family History Mother from massive heart attack post surgery Father from complication of emphysema Social History Patient is a former smoker, quit 5 years ago. She denies alcohol or illicit drug intake. Physical Exam Vital Signs Vital Signs Date Time Temp Pulse Resp B/P (MAP) Pulse Ox O2 Delivery O2 Flow Rate FiO2 04/18/17 08:49 98.3 75 16 135/61 (85) 95 04/18/17 04:00 97.0 18 120/68 (85) 97 04/18/17 00:00 98.4 74 20 132/84 (100) 97 04/17/17 21:01 99.4 79 141/62 (88) 94 04/17/17 16:00 97.8 70 20 140/72 (94) 96 Physical Exam GENERAL: Well-nourished, well-developed patient. SKIN: Warm and dry. HEAD: Normocephalic. EYES: No scleral icterus. No injection or drainage. NECK: Supple, trachea midline. No JVD or lymphadenopathy. CARDIOVASCULAR: Regular rate and rhythm3/6 SAGAR RESPIRATORY: Breath sounds equal bilaterally. No accessory muscle use. GASTROINTESTINAL: Abdomen soft, non-tender, nondistended. EXTREMITIES: No cyanosis, or edema. NEUROLOGICAL: Awake, alert, and oriented x 3. Non-focal. Laboratory Laboratory Tests Test 04/17/17 17:47 Total Creatine Kinase 61 Troponin I 1.20 Date/Time Source Procedure Growth Status 04/17/17 07:08 Blood Peripheral Aerobic Blood Culture - Preliminary NO GROWTH IN 1 DAY Resulted 04/17/17 07:08 Blood Peripheral Anaerobic Blood Culture - Preliminary NO GROWTH IN 1 DAY Resulted Result Diagram: 04/17/17 0709 04/17/17 0709 Imaging Last Impressions Chest X-Ray 04/17/17 0700 Signed Impressions: Service Date/Time: Monday, April 17, 2017 07:03 - CONCLUSION: 1. Cardiomegaly. 2. There are advanced interstitial changes which appear chronic. There is no pleural effusion. 3. There are calcified nodules in the chest wall along the left axillary region. The patient is post left mastectomy. No prior imaging is available to assess for stability. The calcified nature of these would suggest they're likely benign. Bradley Rincon MD CT Angiography 04/17/17 0000 Signed Impressions: Service Date/Time: Monday, April 17, 2017 08:09 - CONCLUSION: 1. No pulmonary embolus is identified. 2. Interstitial fibrotic changes. 3. There are old calcified nodes in the right dahlia. 4. There is a small right basilar effusion. 5. Mild cardiomegaly. 6. There is infiltrate in the right upper lobe with consolidation concerning for pneumonia. 7. There are consolidative change in both lung bases. 8. 2.5 x 1.5 cm pleural-based nodule on the left. This is nonspecific in appearance by CT. 9. Old rib fractures on the left with exuberant calcified callus formation. Bradley Rincon MD Assessment and Plan Problem List: (1) Severe aortic stenosis ICD Codes: I35.0 - Nonrheumatic aortic (valve) stenosis Plan: 81 y/o F admitted with acute on chronic diastolic heart failure and elevated troponin. She has hx Aortic Stenosis echo done here reveals severe Aortic Stenosis with preserved LV systolic function. She report feeling better with diuresis. Denies chest pain, palpitations or syncope. She is followed by a History Department Chair at [facility]. Elevated troponin concerning for worsening CAD, however seems to also contributing to her symptoms. After a long discussion she has agreed to undergo LHC and evaluation by our Heart Valve Team. Risk benefits of LHC/PCI including but not limited to stroke, bleeding , ELISABETH, emergent CABG ad explain and she is willing to proceed. She will also has agreed to undergo TAVR work up here. Recommendations: 1. TAVR w/u 2. Keep NPO for LHC today Thank you for the opportunity to take part in the care of this patient (2) Diabetes mellitus, type II ICD Codes: E11.9 - Type 2 diabetes mellitus without complications (3) Hyperlipidemia ICD Codes: E78.5 - Hyperlipidemia, unspecified (4) Flash pulmonary edema ICD Codes: J81.0 - Acute pulmonary edema (5) CHF exacerbation ICD Codes: I50.9 - Heart failure, unspecified (6) Dyspnea on exertion ICD Codes: R06.09 - Other forms of dyspnea Status: Acute Thrasher-Bolivar Le MD Apr 18, 2017 12:39
--- NOTE | 2017-04-18 12:42 | EKG ---
Date Performed: 04/17/2017 Time Performed: 19:58:55 PTAGE: 81 years EKG: Sinus rhythm LEFT VENTRICULAR HYPERTROPHY AND ST-T CHANGE ABNORMAL ECG Compared to prior tracing no significant c chaparrita PREVIOUS TRACING : 04/17/2017 07.01 DOCTOR: Alvin De Dios Interpretating Date/Time 04/18/2017 12:37:04
[2017-04-18] MEDS ORDERED: REGADENOSON INJ 0.4 MG/5 ML SYR ONE (13:43)
[2017-04-18] MEDS ORDERED: MIDAZOLAM HCL 2 MG/2 ML VIAL ONE (14:23)
[2017-04-18] MEDS ORDERED: HEPARIN-NS/PF INJ 1,000 ML ONE (14:23)
--- NOTE | 2017-04-18 14:44 | RADRPT ---
EXAM DATE/TIME: 04/18/2017 13:06 [place] COMPARISON: No previous studies available for comparison. INDICATIONS : Substernal chest pain with dyspnea. Angina Congestive heart failure. DOSE: 8.5 mCi Tc99m Myoview MEDICAL HISTORY : Hypertension. Diabetes mellitus type 2. SURGICAL HISTORY : Coronary artery stent. Left breast. ENCOUNTER: Initial ACUITY: 1 day PAIN SCALE: 5/10 LOCATION: Substernal chest TECHNIQUE: Resting injection SPECT was performed. Examination was performed on a SPECT/CT scanner. Attenuation corrected and non-attenuation correction images were reviewed. FINDINGS: On the rest exam was performed. Patient went to the [employer]. Defect in the anterior wall extending to the apex. Second defect is seen in the inferior septal wall . CONCLUSION: Defects as described above. RISK CATEGORY: Intermediate (1-3% Annual Mortality Rate) Mahendra Rincon MD FACR on April 18, 2017 at 14:41 Board Certified Radiologist. This report was verified electronically.
[2017-04-18] MEDS ORDERED: HEPARIN SODIUM - IV 10,000 UNITS/10 ML VIAL ONE (14:55)
[2017-04-18] MEDS ORDERED: NITROGLYCERIN INJ 5 ML ONE (14:55)
[2017-04-18] MEDS ORDERED: PROTAMINE SULFATE 50 MG/5 ML VIAL ONE (15:32)
[2017-04-18] MEDS ORDERED: CLOPIDOGREL 300 MG TAB ONE (15:34)
--- NOTE | 2017-04-18 15:52 | CATHPROC ---
[place] [employer] HIS Report Study Information Study Number Admission Scheduled Start Study Start [id number] Apr 17 2017 9:40AM 04/18/2017 Apr 18 2017 1:59PM [place] [facility] Cardiac Catheterization Admit Source Facility Department Emergency department [facility] Department Supervisor Physician and Clinical Staff Initial MD Hardy, Bolivar Sheet Metal Lay Out Worker Zonia Segundo,RN Recorder Markel Jurado,RT(R) Scrub Suellen Montes,RT(R) Procedures Performed Procedure Location (Site) Vessel Name Coronary Angiograms LCA Left Coronary Coronary Angiograms RCA Right Coronary Drug Eluting Inflatio LAD Prox Left Coronary L Heart Cath PTCA LAD Prox Left Coronary Wire insertion Fem Art (right) Femoral Art Equipment Time Horse Show Judge Description Size Mfg Part Number Used/Scraped COPILOT VALVE, BLEEDBACK [id number] 14:55 [employer]GHESE [employer] Used CONTROL *[id number] STENT, 2.75 X 12MM XIENCE [id number] 15:22 [employer]GHESE [employer] 2.75 X 12 Used ALPINE *[id number] TRANSDUCER, TRUWAVE [id number] 14:27 HAYWARD [employer] * Used W/STOCKCOCK *[id number] 14:57 BOSTON SCIENTIFIC BALLOON, 2.5 12MM EMERGE MR 2.5 12MM Used *[id number] 15:31 CARDIVA MEDICAL VASCADE, FR6 CLOSURE SYSTEM FR 6\7 Used *[id number]- INTRODUCER SET, 14:27 [employer]. FR 5 SC-NT-U-SST Used MICROPUNCTURE, STIFFENED *[id number] [id number] *[id number] [id number] *[id number] 14:27 [employer] INDUSTRIES PACK, CCL CUSTOM * Used *[id number] 14:55 MEDTRONIC/AVE EBU 3.5 Z2 GUIDE CATHETER FR 6 Used *[id number] 15:21 Yurpy 30 NIR INDEFLATOR Used *[id number] 14:27 Yurpy WIRE, 3MMJ .035 180CM 180CM Used *[id number] 14:27 NAMIC MANIFOLD, 4 PORT * Used *[id number] 14:27 NYCOMED OMNIPAQUE, 350 MG, 150ML 150ML [id number] Used [id number] 14:27 CHIU MEDICAL BLANKET,WARM AIR CCL * Used *[id number] 14:27 TERUMO MEDICAL SHEATH, FR5 TERUMO (10CM) FR 5 Used *[id number] 14:55 TERUMO MEDICAL SHEATH, FR6 TERUMO (10CM) FR 6 Used *[id number] WIRE, RUNTHROUGH NS FLOPPY 25-1011 14:55 TERUMO MEDICAL 180CM Used .014 180CM *[id number] WIRE, RUNTHROUGH NS FLOPPY [id number] 15:00 TERUMO MEDICAL 180CM Used .014 180CM *[id number] Equipment Model, Serial, Lot Number and Expiration Data Description Model Number Serial Number Lot Number Expiration Date BALLOON, 2.5 12MM EMERGE MR [id number] 10-12-2019 History: Allergies Allergy Reaction Penicillins Sulfa (Sulfonamide Antibiotics) History: Risk Factors Family History of Hypertension Dyslipidemia Previous AK Previous Heart Failure Premature CAD Yes Yes No No Yes Prior Valve Prior PCI Prior PCIDate Prior CABG Surgery No Yes 07/11/2002 No Cerebrovascular Peripheral Artery Chronic Lung On Dialysis Diabetes Diabetes Therapy Disease Disease Disease No No No No Yes Oral History: Symptoms/Diagnosis Selection Items Chest pain ENRIQUEZ SOB History: Stress Tests Stress or Imaging Studies Performed No History: Other Disease Selection Items Cancer CHF History: Other Current Smoker Method Quit Packs a Day Years Used Pack Years No Cigarettes 5 Years Ago 1 30 30 Labs Hgb (g/dl) Hct (%) RBC (MIL/MM3) WBC (l/cumm) Platelets (thousands) 11.60-17.00 35.00-51.00 4.00-5.90 4.00-11.00 150.00-450.00 11.4 33.8 4.3 12.2 377 Glucose (mg/dl) BUN (mg/dl) Creatinine (mg/dl) BUN:Creatinine (1:x) 74.00-106.00 7.00-18.00 0.50-1.30 10.00-20.00 244 16 0.8 20 Na (meq/l) K (meq/l) Cl (meq/l) CO2 (mmol/L) 136.00-145.00 3.50-5.10 98.00-107.00 21.00-32.00 132 4.6 98 27.2 PT (sec) PTT (sec) INR (PTT:PT) 9.80-11.60 24.30-30.10 0.90-1.10 10.1 24 0.9 Troponin I (ng/ml) CPK (u/l) CPK-MB (ng/ML) 0.02-0.05 26.00-308.00 0.50-3.60 1.2 61 Not Drawn Medication Medication Total Dose (Bolus/Oral) Medication Total Dosage/Unit 1% XYLOCAINE 20 mL FENTANYL 50 mcg HEPARIN 5000 units NTG (IC) 200 mcg PLAVIX 600 mg VERSED 2 mg Medications (Bolus/Oral) Medication Time Given Dosage/Unit Administered By Reason VERSED 04/18/2017 2:38:36 PM 2 mg Adamy Zonia 2 mg VERSED given in lab by Zonia Segundo RN via Peripheral IV. Ordered by Bolivar Hardy. FENTANYL 04/18/2017 2:39:47 PM 50 mcg Cass Segundonifer 50 mcg FENTANYL given in lab by Zonia Segundo, RANDA via Peripheral IV. Ordered by Bolivar Hardy. 1% XYLOCAINE 04/18/2017 2:39:55 PM 20 mL Price-Bolivar Le 20 mL 1% XYLOCAINE given in lab by Bolivar Hardy in Right Groin via Subcutaneous. Ordered by Bolivar Garcia. HEPARIN 04/18/2017 2:56:49 PM 5000 units Price-Boliavr Le 5000 units HEPARIN given in lab by Bolivar Hardy via Peripheral IV. Ordered by Bolivar Hardy. NTG (IC) 04/18/2017 3:27:34 PM 200 mcg Bolivar Hardy 200 mcg NTG (IC) given in lab by Bolivar Hardy via Intra-coronary. Ordered by Bolivar Hardy. PLAVIX 04/18/2017 3:44:45 PM 600 mg AdamyCassZonia 600 mg PLAVIX given in lab by Zonia Segundo, RANDA via Oral. Ordered by Bolivar Hardy. Medication (Drip) Medication Time Given Dosage/Unit Concentration/Unit Diluent (ml) Solution IV Solutions 04/18/2017 2:13:16 PM 0 mL (IV) 500 NaCl .9 IV Solutions given in lab by Zonia Segundo, RN in Right Antecubital via Peripheral IV. Pump/Drip Fl ow = 20 ml/hr using NaCl .9. Ordered by Bolivar Garcia. Initial Case Assessment Cardiovascular HR Rhythm NIBP Chest Pain 80 sr 130/58 0 Edema Present Skin color Skin None Normal Warm Dry Circulatory - Right Pulses Dorsalis Pedis Femoral 1 1 Scale (0,1,2,3,4,d) Circulatory - Left Pulses Dorsalis Pedis Femoral 2 1 Scale (0,1,2,3,4,d) Neurological State Oriented to time-place- Alert Moves all extremities person Respiration - General Respiration Rate SpO2 (%) O2 (lpm) (B/min) 18 99 0 Chronological Log Time Study Chronological Log 14:13:02 Patient arrived via Bed. 14:13:03 Patient Name, D.O.B, / Armband Verified By R.N. 14:13:05 Consent signed by the physician and the patient and verified by the [facility] Department Supervisor staff. 14:13:06 Pre-op and post- op instructions given; patient acknowledges understanding of instructions. 14:13:07 Verbal Stimulation=2 Physical Stimulation=2 Airway=2 Respiration=2 TOTAL=8. (0=absent, 1=li mited, 2=present) 14:13:09 Presedation assessment performed by [facility] Department Supervisor RN. 14:13:11 Patient has been NPO for More than 6Hrs. 14:13:12 Skin Breakdown- 14:13:14 Guilherme Prominences Protected 14:13:15 A # 18 IV was noted in the Antecubital (right). Grade = 0 IV Solutions given in lab by Zonia Segundo, RN in Right Antecubital via Peripheral IV. Pump/D rip Flow = 20 ml/hr 14:13:16 using NaCl .9. Ordered by Bolivar Hardy. 14:13:17 History and physical on the chart or being dictated. Vitals capture started with the following parameters, Patient=Adult, Interval=5 min, Initial Pr wiizhk=908 mmHg, 14:22:45 Deflation Rate=5 mmHg Assessment: Initial Case, HR=80 BPM, Rhythm=sr, ETLE=887/58 mmhg, Chest Pain=0, Edema=None, Col or=Normal, Skin = Warm, Dry Right Pulses: Jacinto Ped=1, Femoral=1 14:22:49 Left Pulses: Jacinto Ped=2, Femoral=1 Neurological: State=Alert, Ox3, QUINTERO Respiration: Resp=18 B/min, SpO2=99 %, O2=0 lpm 14:23:29 HR=81 bpm, EYHC=849/58 mmhg, SpO2=99 %, Resp=16 B/min, Stokes=2 14:23:29 Reference ECG taken 14:28:26 HR=83 bpm, RJBZ=584/53 mmhg, SpO2=95.0 %, Resp=28 B/min, Stokes=2 14:28:45 Bilateral groins prepped with 2% chlorhexidine, and draped after a 3 minute waiting time. 14:32:42 MD paged 14:33:25 HR=75 bpm, MMFH=690/54 mmhg, SpO2=94.0 %, Resp=35 B/min, Stokes=2 14:34:23 Pressure channel 1 zeroed. 14:37:27 MD arrived. Time Out. Correct patient, correct procedure, correct physician, power injector not loaded with contrast with surgical 14:37:41 team present. Time Out Concurred by MD and individual staff in procedure. Not loaded at this ti me. 14:38:26 HR=71 bpm, TLDI=804/59 mmhg, SpO2=97.0 %, Resp=34 B/min, Stokes=2 14:38:36 2 mg VERSED given in lab by Zonia Segundo, RN via Peripheral IV. Ordered by Conrad Hardy 14:39:31 Presedation re-assessment performed by [facility] Department Supervisor RN. 14:39:35 Case Start 14:39:47 50 mcg FENTANYL given in lab by Zonia Segundo, RN via Peripheral IV. Ordered by Bolivar Cui. 14:39:48 Verbal Stimulation=2 Physical Stimulation=2 Airway=2 Respiration=2 TOTAL=8. (0=absent, 1=li mited, 2=present) 20 mL 1% XYLOCAINE given in lab by Bolivar Hardy in Right Groin via Subcutaneous. Ordered lynette Hardy 14:39:55 Bolivar. 14:41:01 Access site was Right Femoral Artery. A INTRODUCER SET, MICROPUNCTURE, STIFFENED FR 5 was advanced into the Fem Art (right) using the 14:41:22 Percutaneous technique. A SHEATH, FR5 TERUMO (10CM) FR 5 was exchanged in the Fem Art (right). This was necessary in or st[place] to 14:42:37 accomodate a larger catheter. A JR 4.0 INFINITI CATHETER FR 5 was advanced over a wire. OMNIPAQUE, 350 MG, 150ML 150ML was us ed for 14:43:12 injections. 14:43:29 HR=68 bpm, PJGX=307/46 mmhg, SpO2=93.0 %, Resp=16 B/min, Stokes=2 Recorded Pressure: FA, HR=65, Condition=Condition 1 14:44:25 (Femoral Artery) FA 96/32/56 Recorded Pressure: Ao, HR=66, Condition=Condition 1 14:48:14 (Aorta) Ao 97/35/57 14:48:24 HR=64 bpm, NIBP=98/44 mmhg, SpO2=93.0 %, Resp=16 B/min, Stokes=2 14:48:29 The RCA was injected and visualized at various angles. OMNIPAQUE, 350 MG, 150ML 150ML used . After removing the current catheter a JL 4.0 INFINITI CATHETER FR 5 was advanced over a WIRE, 3 MMJ .035 180CM 14:49:35 180CM. 14:49:47 The LCA was injected and visualized at various angles. OMNIPAQUE, 350 MG, 150ML 150ML used . 14:53:21 HR=68 bpm, ZMOU=528/48 mmhg, SpO2=91.0 %, Resp=20 B/min, Stokes=2 14:53:58 Catheter was removed OTW A SHEATH, FR6 TERUMO (10CM) FR 6 was exchanged in the Fem Art (right). This was necessary in or stanton to 14:54:34 accomodate a larger catheter. 14:56:49 5000 units HEPARIN given in lab by Bolivar Hardy via Peripheral IV. Ordered by Bolivar Marie. A EBU 3.5 Z2 GUIDE CATHETER FR 6 was advanced over a wire. OMNIPAQUE, 350 MG, 150ML 150ML was u sed for 14:58:09 injections. 14:58:26 HR=65 bpm, ATFB=534/45 mmhg, SpO2=90.0 %, Resp=19 B/min, Stokes=2 14:59:46 A WIRE, RUNTHROUGH NS FLOPPY .014 180CM 180CM was inserted via Fem Art (right). 15:03:27 HR=64 bpm, JLVQ=049/44 mmhg, SpO2=94.0 %, Resp=17 B/min, Stokes=2 15:05:17 Interventional wire has crossed the lesion LAD. 15:05:57 A WIRE, RUNTHROUGH NS FLOPPY .014 180CM 180CM was inserted via Fem Art (right). 15:08:24 HR=66 bpm, SQLK=874/54 mmhg, SpO2=98.0 %, Resp=21 B/min, Stokes=2 15:13:29 HR=66 bpm, XWLM=368/49 mmhg, SpO2=97.0 %, Resp=19 B/min, Stokes=2 15:14:11 Activated Clotting Time Drawn 15:17:45 Wire removed 15:18:28 HR=68 bpm, TXEO=751/54 mmhg, SpO2=93.0 %, Resp=19 B/min, Stokes=2 15:19:19 ACT (Normal Range 90-180) = 273 A BALLOON, 2.5 12MM EMERGE MR 2.5 12MM was inserted over WIRE, RUNTHROUGH NS FLOPPY .014 180CM 180CM 15:19:34 via the LAD Prox. A BALLOON, 2.5 12MM EMERGE MR 2.5 12MM over a WIRE, RUNTHROUGH NS FLOPPY .014 180CM 180CM in th e LAD 15:20:23 Prox was inflated using a 30 NIR INDEFLATOR at 8 nir for 15 sec. 15:22:06 Balloon Removed. A STENT, 2.75 X 12MM XIENCE ALPINE 2.75 X 12 was advanced through a EBU 3.5 Z2 GUIDE CATHETER F R 6 over a 15:22:45 WIRE, RUNTHROUGH NS FLOPPY .014 180CM 180CM. 15:23:29 HR=76 bpm, DDIA=846/56 mmhg, SpO2=94.0 %, Resp=20 B/min, Stokes=2 A STENT, 2.75 X 12MM XIENCE ALPINE 2.75 X 12 was deployed using a 30 NIR INDEFLATOR at 14 atmos pheres for 15:25:22 10 seconds in the LAD Prox. A STENT, 2.75 X 12MM XIENCE ALPINE 2.75 X 12 was deployed using a 30 NIR INDEFLATOR at 14 atmos pheres for 15:25:44 14 seconds in the LAD Prox. 15:27:07 Delivery device removed 15:27:34 200 mcg NTG (IC) given in lab by Bolivar Hardy via Intra-coronary. Ordered by Bolivar Cui. 15:28:33 HR=81 bpm, AMHR=904/53 mmhg, SpO2=92.0 %, Resp=21 B/min, Stokes=2 15:29:04 Wire removed 15:29:28 Catheter was removed 15:32:09 VASCADE, FR6 CLOSURE SYSTEM FR 6\7 placement in the Fem Art (right) 15:33:24 Catheter(s) removed without difficulty 15:33:32 HR=76 bpm, RHAP=832/51 mmhg, SpO2=89.0 %, Resp=22 B/min, Stokes=2 15:34:31 Case End 15:34:43 No case complications noted. 15:34:49 Cine recording checked. 15:34:52 Bedside Report will be given. 15:34:54 Implantable Device card placed in patient's chart. 15:34:58 Contrast Scanned 15:35:02 A Left Heart Cath was performed. 15:38:31 HR=71 bpm, OFOC=074/51 mmhg, SpO2=95.0 %, Resp=24 B/min, Stokes=2 15:43:32 HR=76 bpm, SGTY=335/60 mmhg, SpO2=93.0 %, Resp=18 B/min, Stokes=2 15:44:45 600 mg PLAVIX given in lab by Zonia Segundo RN via Oral. Ordered by Bolivar Hardy. 15:44:58 Vitals capture stopped. 15:49:[facility] - Contrast Media Used In Study Contrast Total Opened (mL) Total Used (mL) Total Wasted (mL) Omnipaque 120 120 0 End Study - Maximum Contrast Load Max Contrast Load (mL) 443.8 End Study - Radiation Exposure Fluoro Time (minutes) 21.1 End Study - Patient Disposition Complications Transferred To No Telemetry Bed
[2017-04-18] MEDS ORDERED: CLOPIDOGREL 300 MG TAB PO ONE (16:00)
[2017-04-18] MEDS ORDERED: MISC INFORMATION XX ONE (16:00)
[2017-04-18] MEDS ORDERED: ATROPINE SULFATE 1 MG/ML VIAL IV PUSH PRN (16:00)
[2017-04-18] MEDS ORDERED: ONDANSETRON HCL 4 MG/2 ML VIAL IV PUSH PRN (16:00)
[2017-04-18] MEDS ORDERED: FUROSEMIDE 40 MG/4 ML VIAL ONE (16:35)
[2017-04-18] MEDS ORDERED: IOHEXOL 350 MG/ML 100 ML BTL (for Cath Lab) OTHER ONE (16:54)
[2017-04-18] MEDS ORDERED: FUROSEMIDE 20 MG/2 ML VIAL IV PUSH ONE (17:00)
[2017-04-18] MEDS ORDERED: IOHEXOL 350 MG/ML 10 ML VIAL (for RAD DIAG) IVCONTRAST ONE (17:48)
[2017-04-18] MEDS: METFORMIN HOLD POST IV CONTRAST SCH (18:10)
--- NOTE | 2017-04-18 18:24 | PD.CAR.PN ---
CVT Progress Note Subjective/Hospital Course: sts data discussed with pt RISK SCORES About the STS Risk Calculator Procedure: AV Replacement Risk of Mortality: 5.507% Morbidity or Mortality: 25.392% Long Length of Stay: 13.428% Short Length of Stay: 19.265% Permanent Stroke: 1.7% Prolonged Ventilation: 20.618% DSW Infection: 0.327% Renal Failure: 6.027% Reoperation: 7.756% Objective: Vital Signs Date Time Temp Pulse Resp B/P (MAP) Pulse Ox O2 Delivery O2 Flow Rate FiO2 04/18/17 12:30 98.8 68 16 131/80 (97) 92 04/18/17 08:49 98.3 75 16 135/61 (85) 95 04/18/17 08:00 77 04/18/17 04:00 97.0 18 120/68 (85) 97 04/18/17 00:00 98.4 74 20 132/84 (100) 97 04/17/17 21:01 99.4 79 141/62 (88) 94 Result Diagram: 04/17/17 0709 04/17/17 0709 Lilly Hubbard Apr 18, 2017 18:24
--- NOTE | 2017-04-18 19:42 | RADRPT ---
EXAM DATE/TIME: 04/18/2017 17:48 [facility] COMPARISON: CT PULMONARY ANGIOGRAM, April 17, 2017, 8:09. INDICATIONS : Valve replacement. IV CONTRAST: 98 cc Omnipaque 350 (iohexol) IV RADIATION DOSE: 36.40 CTDIvol (mGy) MEDICAL HISTORY : Cardiovascular disease. Hypertension. Diabetes SURGICAL HISTORY : None. ENCOUNTER: Initial ACUITY: 1 day PAIN SCALE: 0/10 LOCATION: [facility] TECHNIQUE: Volumetric scanning was performed using a multi-row detector CT scanner. The data was post processed with a variety of visualization algorithms including full volume maximum intensity projection, multi -planar sliding thin slab reformation, curved planar reformation, and surface rendering techniques. Using automated exposure control and adjustment of the mA and/or kV according to patient size, radiat ion dose was kept as low as reasonably achievable to obtain optimal diagnostic quality images. DIC OM format image data is available electronically for review and comparison. FINDINGS: CARDIAC: The coronary system is right dominant. There is heavy calcification of the left main left anterior de scending artery. There is no pericardial effusion AORTIC ROOT/VALVE: 3 cusps are evident with calcifications. The aortic root measures 28 mm. Mid thoracic aorta measures 23 with no calcifications. THORACIC AORTA: Origin of the great vessels is normal. No evidence of aneurysm, mural thrombus, dissection, mural ca lcification, or stenosis. ABDOMINAL AORTA: No evidence of aneurysm, mural thrombus, dissection, mural calcification, or stenosis. CELIAC ARTERY: Celiac artery is widely patent. SMA: Superior mesenteric artery is widely patent. RIGHT RENAL ARTERY: Right renal artery is widely patent. LEFT RENAL ARTERY: Left renal artery is widely patent. RIGHT COMMON ILIAC: No evidence of aneurysm, mural thrombus, dissection, mural calcification, or stenosis. The common fe moral measures 7 mm. Her findings of pseudoaneurysm likely arising from the common femoral artery. Ul trasound examination is recommended if clinically indicated.. LEFT COMMON ILIAC: No evidence of aneurysm, mural thrombus, dissection, mural calcification, or stenosis. The common fe moral measures 7 mm. THORAX: There are centrilobular emphysematous changes throughout both lungs. There is right lower lobe atelec tasis versus pneumonia. Small bilateral pleural effusions are present right greater than left. Old le ft rib fractures are present with extensive pleural thickening as well as soft tissue density in the chest wall atypical follicle fracture. Whether this reflects a soft tissue mass is uncertain. ABDOMEN: A small hiatal hernia is present. PELVIS: There is diverticulosis without evidence of diverticulitis. CONCLUSION: 1. Aortic measurements as above. 2. 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 Ultrasound examination is recom mended if clinically indicated. 3. Left rib fractures as described above Alvin Sanchez MD on April 18, 2017 at 19:31 Board Certified Radiologist. This report was verified electronically.
[2017-04-18 20:49] LABS: BLOOD, URINE NEG (NEG); COMMENT (UR) CATH-CULT NOT IND; CULTURE IF INDICATED CATH CULTURE NOT IND; GLUCOSE,URINE NEG (NEG); KETONE, URINE NEG (NEG); NITRITE,URINE NEG (NEG); URINE COLOR COLORLESS (YELLW/STRAW)
[2017-04-18] MEDS: SODIUM CHLOR 0.9% 1000 ML INJ 1,000 ML IV SCH ×2 (21:18→23:51)
[2017-04-18] MEDS: ATORVASTATIN 10 MG TAB PO SCH (21:19)
[2017-04-19] VITALS (31 sets, daily range): BP systolic 123–158; BP diastolic 54–67; PULSE 60–79; RESP 16; TEMP 97.6–98.6; O2SAT 92–98
[2017-04-19] MEDS: NITROGLYCERIN 2% OINT 1 GM PACKET TOP SCH ×2 (00:21→06:11)
[2017-04-19 07:14] LABS: HEMATOCRIT 28.2 % (35.0-46.0); MEAN CELL VOLUME 77.1 FL (80.0-100.0); MEAN CORPUSCULAR HEMOGLOBIN 25.4 PG (27.0-34.0); PLATELET COUNT 317 TH/MM3 (150-450); RED BLOOD COUNT 3.66 MIL/MM3 (4.00-5.30); RED CELL DISTRIBUTION WIDTH 15.6 % (11.6-17.2); REVIEW FLAG FINAL; WHITE BLOOD COUNT 8.7 TH/MM3 (4.0-11.0)
[2017-04-19 07:19] LABS: ANION GAP 11 MEQ/L (5-15); BICARBONATE 28.3 MEQ/L (21.0-32.0); BLOOD UREA NITROGEN 13 MG/DL (7-18); CHLORIDE 98 MEQ/L (98-107); GLOMERULAR FILTRATION RATE 85 ML/MIN (>89); POTASSIUM 3.3 MEQ/L (3.5-5.1); SODIUM (NA) 137 MEQ/L (136-145)
--- NOTE | 2017-04-19 08:13 | MB ---
cc: EMIGDIO EATON MD DATE OF CONSULTATION 04/18/2017 DATE OF 1935, 81-year-old female. HISTORY The patient is visiting from the [place] area. Was here for a reunion. She apparently had been complaining of shortness of breath and acute onset of substernal chest pain with a 7/10. She had recently traveled from [place] to [place] and then to [place]. Originally left [place] two weeks ago. She had noticed this shortness of breath over the past few days. No recent fever or chills. Requested that her bring her in to the emergency department. She has had no fevers, no chills. She has history of coronary artery disease. 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 She apparently had a troponin of 1.20 that up from 0.02 and then underwent echocardiogram which showed an EF of 50-55%, severe aortic valve stenosis with a valve area of 0.80, mean gradient of 46, max gradient of 89. Also some trivial pulmonary valve regurgitation. Pulmonary pressures of 40 mmHg. She has also complained of lower extremity edema that she has had off and on. She said she used to be quite active but she has not been since she has got arthritis in both of her legs, so she has been somewhat sedentary. PAST MEDICAL HISTORY Her past medical history includes: 1. Coronary artery disease. 2. Hypertension. 3. Hyperlipidemia. 4. Diabetes mellitus type 2. 5. Bilateral knee arthritis. She uses a cane. 6. History of breast cancer. PAST SURGICAL HISTORY Surgeries include: 1. Left breast lumpectomy with radiation in 2002. 2. Cataract surgery. 3. Cardiac stents, one in 1997 and one in 2003. ALLERGIES SHE HAS ALLERGY TO PENICILLIN AND SULFA. MEDICATIONS Home meds include: 1. Janumet. 2. Ramapril. 3. Nitroglycerine. 4. Imdur. 5. Iron. 6. Lasix. 7. Co-Q10. 8. Vitamin D3. 9. Coreg 12.5 twice a day. 10. Atorvastatin. 11. Aspirin. 12. Amlodipine. FAMILY HISTORY Noncontributory. SOCIAL HISTORY The patient , three children. Smoked for 58 years less than one pack. Rare alcohol. Retired. She quit smoking 5 years ago. REVIEW OF SYSTEMS GENERAL: No night sweats, fever, heat and cold intolerance. SKIN: No psoriasis, itching or hives. HEENT: No blurred vision, hearing loss. She also wears a partial denture. RESPIRATORY: Positive for shortness of breath. No cough. CARDIOVASCULAR: As above in HPI. GASTROINTESTINAL: No diarrhea, vomiting. GENITOURINARY: No burning, frequency, urgency. CENTRAL NERVOUS SYSTEM: No history of TIA, CVA, seizure disorder, ENDOCRINE: Positive for diabetes. PHYSICAL EXAMINATION VITAL SIGNS: On exam blood pressure 130/80, heart rate 68, temperature max 98.8. Patient is on room air. GENERAL: Awake , alert in no acute distress. HEENT: Head is normocephalic, atraumatic. Pupils equal and reactive. Oral mucosa pink, moist. NECK: Supple. No JVD. CARDIOVASCULAR: Heart sounds S1-S2, regular rate and rhythm with a grade 3-4/6 systolic murmur. LUNGS: Clear to auscultation. No wheezes, rales or rhonchi. ABDOMEN: Soft, nontender. No masses or organomegaly. EXTREMITIES: Reveal a maisha appearance with +1 palpable pulses. She has got some chronic venous stasis. LABORATORY FINDINGS Shows hemoglobin 11, hematocrit 33, white cell count 12, platelet count 377. Sodium 132, potassium 4.6, BUN 16, creatinine 0.86, glucose 244, lactic acid 1.5. Troponin 0.02 then 1.20. BNP at 200. INR was 0.9. They did do a nuclear stress test which showed a defect in the anterior wall extending to the apex. A second defect in the inferior wall. CTA of the chest no pulmonary emboli. Interstitial fibrotic changes. Some mild cardiomegaly. There is a 2.5 x 1.5 cm pleural based nodule on the left. Some old fractures on the left noted. STS data has been completed, risk of mortality 5.50, morbidity mortality 25%. Her frailty score 09/12. IMPRESSION This is a 81-year-old female from the [place] area with chest pain, probable non STEMI with positive stress test and also cath report showing a proximal LAD 80%. She is now status post drug eluting stent to the LAD. Closure with a Cardiva VASCADE closure device on the right femoral artery. Her risk of mortality and morbidity increased because of grade 3 heart failure [place] class, diabetes mellitus type 2, history of prolonged tobacco abuse, however she did quit 5 years ago, history of left breast cancer with lumpectomy and radiation, sedentary lifestyle and advanced age. Recommend at this time to be evaluated for transcatheter aortic valve replacement due to her high risk factors and her STS data and frailty score. DICTATED BY: ALYSIA Osorio Emigdio ESPANA /6:27 PM /8:08 AM
[2017-04-19] MEDS: CLOPIDOGREL 75 MG TAB PO SCH (09:00)
--- NOTE | 2017-04-19 09:24 | PD.CARD.PN ---
Subjective Subjective Remarks no CV complaints still requiring O2 on 4L overnight s/p PCI/LAD Objective Medications Current Medications Medications (Trade) Dose Ordered Sig/Roxie Route Start Time Stop Time Status Last Admin (NS Flush) 2 ml UNSCH PRN IV FLUSH 04/17/17 10:30 (NS Flush) 2 ml BID IV FLUSH 04/17/17 21:00 04/18/17 21:19 (Tylenol) 650 mg Q4H PRN PO 04/17/17 10:30 (Zofran Inj) 4 mg Q6H PRN IVP 04/17/17 10:30 (Tylenol) 650 mg Q6H PRN PO 04/17/17 10:30 (Narcan Inj) 0.4 mg UNSCH PRN IV PUSH 04/17/17 10:30 (Milk Of Magnesia Liq) 30 ml Q12H PRN PO 04/17/17 10:30 (Duoneb Neb) 1 ampule Q2HR NEB PRN NEB 04/17/17 10:30 04/19/17 05:46 (Vasotec Inj) 2.5 mg Q6H PRN IV PUSH 04/17/17 10:30 (Norvasc) 5 mg DAILY PO 04/17/17 12:00 04/18/17 09:00 (Lipitor) 10 mg HS PO 04/17/17 21:00 04/18/17 21:19 (Coreg) 12.5 mg BID PO 04/17/17 12:00 04/18/17 21:19 (Imdur) 60 mg DAILY PO 04/17/17 12:00 04/18/17 09:00 Patient Own Medication PT OWN MED: AZELAST... DAILY NASAL 04/18/17 09:00 Future Hold (Protonix) 40 mg DAILY PO 04/18/17 09:00 04/18/17 09:00 (Altace) 10 mg BID PO 04/17/17 21:00 04/18/17 21:19 (Lasix Inj) 20 mg BID@,18 IV PUSH 04/17/17 18:00 04/18/17 18:00 (D50w (Vial) Inj) 50 ml UNSCH PRN IV PUSH 04/17/17 10:45 (Glucagon Inj) 1 mg UNSCH PRN OTHER 04/17/17 10:45 (NovoLOG SUPPLEMENTAL SCALE) 1 ACHS SLIDING SCALE SQ 04/17/17 12:00 04/18/17 21:20 (Nitrostat Sl) 0.4 mg Q5M PRN SL 04/17/17 10:45 Levofloxacin/ Dextrose 100 ml @ 100 mls/hr Q24H IV 04/18/17 09:00 04/18/17 09:01 (Nitroglycerin 2% Oint) 1 inch Q6HR TOP 04/18/17 00:00 04/19/17 06:11 (Aspirin Chew) 81 mg DAILY PO 04/19/17 09:00 (Plavix) 75 mg DAILY PO 04/19/17 09:00 (Atropine Inj) 0.5 mg UNSCH PRN IV PUSH 04/18/17 16:00 (Zofran Inj) 4 mg Q4H PRN IV PUSH 04/18/17 16:00 Miscellaneous Information HOLD METFORMIN FOR... Q24H .XX 04/18/17 18:10 04/20/17 18:09 Vital Signs / I&O Vital Signs Date Time Temp Pulse Resp B/P (MAP) Pulse Ox O2 Delivery O2 Flow Rate FiO2 04/19/17 09:02 79 04/19/17 08:43 68 04/19/17 07:03 97.6 74 16 138/64 (88) 96 04/19/17 07:01 68 04/19/17 06:00 65 04/19/17 05:47 93 Nasal Cannula 4.00 04/19/17 05:00 77 04/19/17 04:00 67 04/19/17 03:00 64 04/19/17 03:00 98.5 67 16 123/54 (77) 97 04/19/17 02:00 61 04/19/17 01:00 60 04/19/17 00:00 62 04/18/17 23:00 98.7 65 16 115/53 (73) 95 04/18/17 23:00 60 04/18/17 22:00 68 04/18/17 21:00 74 04/18/17 20:00 98.4 75 16 150/64 (92) 94 04/18/17 20:00 75 04/18/17 12:30 98.8 68 16 131/80 (97) 92 I/O 10/9/04/18/17 04/18/17 04/19/17 04/19/17 04/19/17 07:00 15:00 23:00 07:00 15:00 23:00 Intake Total 1012 ml Output Total 400 ml 2500 ml Balance -400 ml -1488 ml Intake Oral 240 ml IV Total 772 ml Output Urine Total 400 ml 2500 ml # Bowel Movements 0 Physical Exam GENERAL: Well-nourished, well-developed patient. SKIN: Warm and dry. HEAD: Normocephalic. EYES: No scleral icterus. No injection or drainage. NECK: Supple, trachea midline. No JVD or lymphadenopathy. CARDIOVASCULAR: Regular rate and rhythm without murmurs, gallops, or rubs. RESPIRATORY: Breath sounds equal bilaterally. No accessory muscle use. GASTROINTESTINAL: Abdomen soft, non-tender, nondistended. EXTREMITIES: No cyanosis, or edema. NEUROLOGICAL: Awake, alert, and oriented x 3. Non-focal. Laboratory Laboratory Tests Test 04/18/17 20:31 04/19/17 04:35 Urine Color COLORLESS Urine Turbidity CLEAR Urine pH 6.0 Urine Specific [place] 1.028 Urine Protein NEG mg/dL Urine Glucose (UA) NEG mg/dL Urine Ketones NEG mg/dL Urine Occult Blood NEG Urine Nitrite NEG Urine Bilirubin NEG Urine Urobilinogen LESS THAN 2.0 MG/DL Urine Leukocyte Esterase NEG Urine RBC 1 /hpf Urine WBC 2 /hpf Microscopic Urinalysis Comment CATH-CULT NOT IND White Blood Count 8.7 TH/MM3 Red Blood Count 3.66 MIL/MM3 Hemoglobin 9.3 GM/DL Hematocrit 28.2 % Mean Corpuscular Volume 77.1 FL Mean Corpuscular Hemoglobin 25.4 PG Mean Corpuscular Hemoglobin Concent 33.0 % Red Cell Distribution Width 15.6 % Platelet Count 317 TH/MM3 Mean Platelet Volume 7.9 FL Blood Urea Nitrogen 13 MG/DL Creatinine 0.67 MG/DL Random Glucose 145 MG/DL Calcium Level 8.3 MG/DL Sodium Level 137 MEQ/L Potassium Level 3.3 MEQ/L Chloride Level 98 MEQ/L Carbon Dioxide Level 28.3 MEQ/L Anion Gap 11 MEQ/L Estimat Glomerular Filtration Rate 85 ML/MIN Imaging Last Impressions Myocardial Perfusion Scan Nuc Med 04/18/17 0600 Signed Impressions: Service Date/Time: Tuesday, April 18, 2017 13:06 - CONCLUSION: Defects as described above. RISK CATEGORY: Intermediate (1-3%% Annual Mortality Rate ) Mahendra Rincon MD FACR Chest CTA 04/18/17 0000 Signed Impressions: Service Date/Time: Tuesday, April 18, 2017 17:48 - CONCLUSION: 1. Aortic measurements as above. 2. 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 Ultrasound examination is recommended if clinically indicated. 3. Left rib fractures as described above Alvin Sanchez MD Chest X-Ray 04/17/17 0700 Signed Impressions: Service Date/Time: Monday, April 17, 2017 07:03 - CONCLUSION: 1. Cardiomegaly. 2. There are advanced interstitial changes which appear chronic. There is no pleural effusion. 3. There are calcified nodules in the chest wall along the left axillary region. The patient is post left mastectomy. No prior imaging is available to assess for stability. The calcified nature of these would suggest they're likely benign. Bradley Rincon MD CT Angiography 04/17/17 0000 Signed Impressions: Service Date/Time: Monday, April 17, 2017 08:09 - CONCLUSION: 1. No pulmonary embolus is identified. 2. Interstitial fibrotic changes. 3. There are old calcified nodes in the right dahlia. 4. There is a small right basilar effusion. 5. Mild cardiomegaly. 6. There is infiltrate in the right upper lobe with consolidation concerning for pneumonia. 7. There are consolidative change in both lung bases. 8. 2.5 x 1.5 cm pleural-based nodule on the left. This is nonspecific in appearance by CT. 9. Old rib fractures on the left with exuberant calcified callus formation. Bradley Rincon MD Assessment and Plan Problem List: (1) Severe aortic stenosis ICD Codes: I35.0 - Nonrheumatic aortic (valve) stenosis Plan: 81 y/o F admitted with NSTEMI s/p PCI/JENNIFER to Prox LAD, also severe symptomatic Aortic Stenosis. Still requiring O2. Very weak. Afebrile and hemodynamically stable. 3/4 Frail and STS 5%. Evaluated by CT surgery Dr. Blackburn appreciate recs. Recommendations: 1. Cont ASA and Plavix 2. Increase Lasix to 40mg IV BID 3. PFT's today 4. PT/OT consult 5. Strict I&O 6. Daily weight 7. Low salt diet 8. DuoNeb INH (2) Diabetes mellitus, type II ICD Codes: E11.9 - Type 2 diabetes mellitus without complications (3) Hyperlipidemia ICD Codes: E78.5 - Hyperlipidemia, unspecified (4) Flash pulmonary edema ICD Codes: J81.0 - Acute pulmonary edema (5) CHF exacerbation ICD Codes: I50.9 - Heart failure, unspecified (6) Dyspnea on exertion ICD Codes: R06.09 - Other forms of dyspnea Status: Acute Thrasher-Bolivar Le MD Apr 19, 2017 09:24
[2017-04-19] MEDS: INSULIN ASPART SUPPLEMENTAL SCALE SQ SCH ×4 (10:06→21:00)
[2017-04-19] MEDS: CARVEDILOL 12.5 MG TAB PO SCH ×2 (10:08→21:31)
[2017-04-19] MEDS: amLODIPine BESYLATE 5 MG TAB PO SCH (10:08)
[2017-04-19] MEDS: PANTOPRAZOLE SOD 40 MG DELAYED RELEASE TAB PO SCH (10:08)
[2017-04-19] MEDS: SODIUM CHLORIDE 0.9% FLUSH 10 ML FLUSH IV FLUSH SCH ×2 (10:10→21:29)
[2017-04-19] MEDS: LEVOFLOXACIN 500 MG PREMIX INJ 100 ML IV SCH (10:10)
--- NOTE | 2017-04-19 10:16 | PD.CONS ---
History of Present Illness Service CT Surgery Consult Requested By Dr. Thrasher Reason for Consult Severe aortic stenosis, CAD, acute on chronic diastolic heart failure, NSTEMI Primary Care Physician Unknown Diagnoses: (1) Diastolic CHF due to valvular disease (2) CAD (coronary artery disease) (3) NSTEMI (non-ST elevated myocardial infarction) (4) Severe aortic stenosis History of Present Illness 81y/o female presents with chest pain and dyspnea. She presented to the ED and ruled in for a NSTEMI. She underwent ECHO and was found to have severe with a valve area of 0.8 cm2. She has an EF~50%. She and her are visiting the area from their [facility] residence. The patient appears to be very frail with difficulty ambulating and achieving her ADLs. She has a charge entry clerk in [employer] who has been following her. She denies palpitations, PND, orthopnea. She denies prior h/o OK. Review of Systems Constitutional: COMPLAINS OF: Fatigue, DENIES: Diaphoretic episodes, Fever, Weight gain, Weight loss, Chills, Dizziness, Change in appetite, Night Sweats Endocrine: DENIES: Abnorml menstrual pattern, Heat/cold intolerance, Polydipsia , Polyuria, Polyphagia Eyes: DENIES: Blurred vision, Diplopia, Eye inflammation, Eye pain, Vision loss , Photosensitivity, Double Vision Ears, nose, mouth, throat: DENIES: Tinnitus, Hearing loss, Vertigo, Nasal discharge, Oral lesions, Throat pain, Hoarseness, Ear Pain, Running Nose, Epistaxis, Sinus Pain, Toothache, Odynophagia Respiratory: DENIES: Apneas, Cough, Snoring, Wheezing, Hemoptysis, Sputum production, Shortness of breath Cardiovascular: COMPLAINS OF: Chest pain, Dyspnea on Exertion, DENIES: Palpitations, Syncope, PND, Lower Extremity Edema, Orthopnea, Claudication Gastrointestinal: DENIES: Abdominal pain, Black stools, Bloody stools, Constipation, Diarrhea, Nausea, Vomiting, Difficulty Swallowing, Anorexia Genitourinary: DENIES: Abnormal vaginal bleeding, Dysmenorrhea, Dyspareunia, Sexual dysfunction, Urinary frequency, Urinary incontinence, Urgency, Hematuria , Dysuria, Nocturia, Vaginal discharge Musculoskeletal: COMPLAINS OF: Joint pain, Stiffness, Back pain, DENIES: Muscle aches, Joint Swelling, Neck pain Integumentary: DENIES: Abnormal pigmentation, Pruritus, Rash, Nail changes, Breast masses, Breast skin changes, Nipple discharge Hematologic/lymphatic: DENIES: Bruising, Lymphadenopathy Immunologic/allergic: DENIES: Eczema, Urticaria Neurologic: COMPLAINS OF: Abnormal gait, Poor Balance, DENIES: Headache, Localized weakness, Paresthesias, Seizures, Speech Problems, Tremor Psychiatric: DENIES: Anxiety, Confusion, Mood changes, Depression, Hallucinations, Agitation, Suicidal Ideation, Homicidal Ideation, Delusions Past Family Social History Allergies: Coded Allergies: Penicillins (Verified Allergy, Unknown, 04/17/17) Sulfa (Sulfonamide Antibiotics) (Verified Allergy, Unknown, 04/17/17) Past Medical History Her past medical history includes: 1. Coronary artery disease. 2. Hypertension. 3. Hyperlipidemia. 4. Diabetes mellitus type 2. 5. Bilateral knee arthritis. She uses a cane. 6. History of breast cancer. PAST SURGICAL HISTORY Surgeries include: 1. Left breast lumpectomy with radiation in 2002. 2. Cataract surgery. 3. Cardiac stents, one in 1997 and one in 2003. ALLERGIES SHE HAS ALLERGY TO PENICILLIN AND SULFA. MEDICATIONS Home meds include: 1. Janumet. 2. Ramapril. 3. Nitroglycerine. 4. Imdur. 5. Iron. 6. Lasix. 7. Co-Q10. 8. Vitamin D3. 9. Coreg 12.5 twice a day. 10. Atorvastatin. 11. Aspirin. 12. Amlodipine. FAMILY HISTORY Noncontributory. SOCIAL HISTORY The patient , three children. Smoked for 58 years less than one pack. Rare alcohol. Retired. She quit smoking 5 years ago. Active Ordered Medications Current Medications Medications (Trade) Dose Ordered Sig/Roxie Route Start Time Stop Time Status Last Admin (NS Flush) 2 ml UNSCH PRN IV FLUSH 04/17/17 10:30 (NS Flush) 2 ml BID IV FLUSH 04/17/17 21:00 04/19/17 10:10 (Tylenol) 650 mg Q4H PRN PO 04/17/17 10:30 (Zofran Inj) 4 mg Q6H PRN IVP 04/17/17 10:30 (Tylenol) 650 mg Q6H PRN PO 04/17/17 10:30 (Narcan Inj) 0.4 mg UNSCH PRN IV PUSH 04/17/17 10:30 (Milk Of Magnesia Liq) 30 ml Q12H PRN PO 04/17/17 10:30 (Duoneb Neb) 1 ampule Q2HR NEB PRN NEB 04/17/17 10:30 04/19/17 05:46 (Vasotec Inj) 2.5 mg Q6H PRN IV PUSH 04/17/17 10:30 (Norvasc) 5 mg DAILY PO 04/17/17 12:00 04/19/17 10:08 (Lipitor) 10 mg HS PO 04/17/17 21:00 04/18/17 21:19 (Coreg) 12.5 mg BID PO 04/17/17 12:00 04/19/17 10:08 Patient Own Medication PT OWN MED: AZELAST... DAILY NASAL 04/18/17 09:00 Future Hold (Protonix) 40 mg DAILY PO 04/18/17 09:00 04/19/17 10:08 (Altace) 10 mg BID PO 04/17/17 21:00 04/18/17 21:19 (D50w (Vial) Inj) 50 ml UNSCH PRN IV PUSH 04/17/17 10:45 (Glucagon Inj) 1 mg UNSCH PRN OTHER 04/17/17 10:45 (NovoLOG SUPPLEMENTAL SCALE) 1 ACHS SLIDING SCALE SQ 04/17/17 12:00 04/19/17 10:06 (Nitrostat Sl) 0.4 mg Q5M PRN SL 04/17/17 10:45 Levofloxacin/ Dextrose 100 ml @ 100 mls/hr Q24H IV 04/18/17 09:00 04/19/17 10:10 (Aspirin Chew) 81 mg DAILY PO 04/19/17 09:00 (Plavix) 75 mg DAILY PO 04/19/17 09:00 (Atropine Inj) 0.5 mg UNSCH PRN IV PUSH 04/18/17 16:00 (Zofran Inj) 4 mg Q4H PRN IV PUSH 04/18/17 16:00 Miscellaneous Information HOLD METFORMIN FOR... Q24H .XX 04/18/17 18:10 04/20/17 18:09 (Lasix Inj) 40 mg BID@18 IV PUSH 04/19/17 18:00 UNV (Imdur) 30 mg DAILY PO 04/20/17 09:00 UNV (Duoneb Neb) 1 ampule QID NEB NEB 04/19/17 12:00 UNV Physical Exam Vital Signs Vital Signs Date Time Temp Pulse Resp B/P (MAP) Pulse Ox O2 Delivery O2 Flow Rate FiO2 04/19/17 09:02 79 04/19/17 08:43 68 04/19/17 07:03 97.6 74 16 138/64 (88) 96 04/19/17 07:01 68 04/19/17 06:00 65 04/19/17 05:47 93 Nasal Cannula 4.00 04/19/17 05:00 77 04/19/17 04:00 67 04/19/17 03:00 64 04/19/17 03:00 98.5 67 16 123/54 (77) 97 04/19/17 02:00 61 04/19/17 01:00 60 04/19/17 00:00 62 04/18/17 23:00 98.7 65 16 115/53 (73) 95 04/18/17 23:00 60 04/18/17 22:00 68 04/18/17 21:00 74 04/18/17 20:00 98.4 75 16 150/64 (92) 94 04/18/17 20:00 75 04/18/17 12:30 98.8 68 16 131/80 (97) 92 Physical Exam GENERAL: This is a well-nourished, well-developed patient, in no apparent distress. SKIN: No rashes, ecchymoses or lesions. Cool and dry. HEAD: Atraumatic. Normocephalic. No temporal or scalp tenderness. EYES: Pupils equal round and reactive. Extraocular motions intact. No scleral icterus. No injection or drainage. ENT: Nose without bleeding, purulent drainage or septal hematoma. Throat without erythema, tonsillar hypertrophy or exudate. Uvula midline. Airway patent. NECK: Trachea midline. No JVD or lymphadenopathy. Supple, nontender, no meningeal signs. CARDIOVASCULAR: Regular rate and rhythm with 2/6 SAGAR at the RUSB RESPIRATORY: Bibasilar crackles. GASTROINTESTINAL: Abdomen soft, non-tender, nondistended. No hepato-splenomegaly , or palpable masses. No guarding. MUSCULOSKELETAL: Extremities without clubbing, cyanosis, or edema. No joint tenderness, effusion, or edema noted. No calf tenderness. Negative Homans sign bilaterally. NEUROLOGICAL: Awake and alert. Cranial nerves II through XII intact. Motor and sensory grossly within normal limits. Five out of 5 muscle strength in all muscle groups. Normal speech. Laboratory Laboratory Tests Test 04/18/17 20:31 04/19/17 04:35 Urine Color COLORLESS Urine Turbidity CLEAR Urine pH 6.0 Urine Specific [place] 1.028 Urine Protein NEG Urine Glucose (UA) NEG Urine Ketones NEG Urine Occult Blood NEG Urine Nitrite NEG Urine Bilirubin NEG Urine Urobilinogen LESS THAN 2.0 Urine Leukocyte Esterase NEG Urine RBC 1 Urine WBC 2 Microscopic Urinalysis Comment CATH-CULT NOT IND White Blood Count 8.7 Red Blood Count 3.66 Hemoglobin 9.3 Hematocrit 28.2 Mean Corpuscular Volume 77.1 Mean Corpuscular Hemoglobin 25.4 Mean Corpuscular Hemoglobin Concent 33.0 Red Cell Distribution Width 15.6 Platelet Count 317 Mean Platelet Volume 7.9 Blood Urea Nitrogen 13 Creatinine 0.67 Random Glucose 145 Calcium Level 8.3 Sodium Level 137 Potassium Level 3.3 Chloride Level 98 Carbon Dioxide Level 28.3 Anion Gap 11 Estimat Glomerular Filtration Rate 85 Date/Time Source Procedure Growth Status 04/17/17 07:08 Blood Peripheral Aerobic Blood Culture - Preliminary NO GROWTH IN 1 DAY Resulted 04/17/17 07:08 Blood Peripheral Anaerobic Blood Culture - Preliminary NO GROWTH IN 1 DAY Resulted Result Diagram: 04/19/1743404/19/17 043 Imaging Last Impressions Myocardial Perfusion Scan Nuc Med 04/18/17 06 Signed Impressions: Service Date/Time: Tuesday, April 18, 2017 13:06 - CONCLUSION: Defects as described above. RISK CATEGORY: Intermediate (1-3%% Annual Mortality Rate ) Mahendra Rincon MD FACR Chest CTA 04/18/17 0000 Signed Impressions: Service Date/Time: Tuesday, April 18, 2017 17:48 - CONCLUSION: 1. Aortic measurements as above. 2. 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 Ultrasound examination is recommended if clinically indicated. 3. Left rib fractures as described above Alvin Sanchez MD Chest X-Ray 04/17/17 0700 Signed Impressions: Service Date/Time: Monday, April 17, 2017 07:03 - CONCLUSION: 1. Cardiomegaly. 2. There are advanced interstitial changes which appear chronic. There is no pleural effusion. 3. There are calcified nodules in the chest wall along the left axillary region. The patient is post left mastectomy. No prior imaging is available to assess for stability. The calcified nature of these would suggest they're likely benign. Bradley Rincon MD CT Angiography 04/17/17 0000 Signed Impressions: Service Date/Time: Monday, April 17, 2017 08:09 - CONCLUSION: 1. No pulmonary embolus is identified. 2. Interstitial fibrotic changes. 3. There are old calcified nodes in the right dahlia. 4. There is a small right basilar effusion. 5. Mild cardiomegaly. 6. There is infiltrate in the right upper lobe with consolidation concerning for pneumonia. 7. There are consolidative change in both lung bases. 8. 2.5 x 1.5 cm pleural-based nodule on the left. This is nonspecific in appearance by CT. 9. Old rib fractures on the left with exuberant calcified callus formation. Bradley Rincon MD Course Patient presented in acute heart failure with a NSTEMI. She underwent PCI of a diagonal by Dr. Thrasher and is recovering from this procedure. Assessment and Plan Problem List: (1) Diastolic CHF due to valvular disease ICD Codes: I38 - Endocarditis, valve unspecified; I50.30 - Unspecified diastolic (congestive) heart failure (2) NSTEMI (non-ST elevated myocardial infarction) ICD Codes: I21.4 - Non-ST elevation (NSTEMI) myocardial infarction (3) CAD (coronary artery disease) ICD Codes: I25.10 - Atherosclerotic heart disease of [place] coronary artery without angina pectoris Assessment and Plan 81y/o female with severe and acute NSTEMI, class 4 symptoms and obviously frail. STS Risk: Risk Model and Variables - STS Adult Cardiac Surgery Database Version 2.81 RISK SCORES About the STS Risk Calculator Procedure: AV Replacement Risk of Mortality: 7.235% Morbidity or Mortality: 28.833% Long Length of Stay: 14.974% Short Length of Stay: 17.026% Permanent Stroke: 1.96% Prolonged Ventilation: 23.911% DSW Infection: 0.327% Renal Failure: 8.632% Reoperation: 9.587% Given her frailty and class 4 symptoms, I would NOT offer her open AVR surgery and would recommend TAVR or medical management only. Discussed Condition With patient, her , and [id number] on phone Problem Qualifiers (1) CAD (coronary artery disease): Qualified Codes: I25.110 - Atherosclerotic heart disease of [place] coronary artery with unstable angina pectoris Fariba Jaime MD Apr 19, 2017 10:16
[2017-04-19] MEDS: ASPIRIN 81 MG CHEW TAB PO SCH (10:18)
[2017-04-19] MEDS: RAMIPRIL 5 MG CAP PO SCH ×2 (10:18→21:31)
--- NOTE | 2017-04-19 10:21 | MA ---
cc: ALL JOSUE DATE 04/18/2017 DATE OF 1935 PROCEDURE PERFORMED 1. Left heart catheterization. 2. Selective right and left coronary angiography. 3. Left common femoral artery angiography. 4. Successful PCI to proximal LAD. INDICATION Non-ST elevation myocardial infarction. APPROACH Right transfemoral. PROCEDURE DESCRIPTION Consent signed. The patient was brought into the cardiac catheterization lab in a fasting state. The right groin was prepped and draped in a sterile fashion. Using 1% lidocaine for local anesthesia and a micropuncture kit, a 5 Filipino sheath was inserted into the right common femoral artery. Right common femoral artery angiography was performed to confirm position of the sheath. Then selective right and left coronary artery angiography were performed with a JR4 and JL4 diagnostic catheters. Angiography was taken in multiple views. We identified a significant blockage in the proximal LAD of about 70% right before the takeoff of the first diagonal. This blockage is amenable to intervention for which the 5 Filipino sheath was exchanged for a 6 Filipino sheath over a wire. Then left main was engaged with a EBU 3.5 guide. Heparin was given for IV anticoagulation. The Runthrough wire was used to wire the LAD and anchored distally. Then the lesion was predilated with a 2.5x12mm balloon followed by insertion of 2.75 drug-eluting stent. The stent was post dilated with stent balloon to high atmospheres. Final angiographic views revealed good stent apposition and expansion with ANA LILIA III flow. The patient tolerated the procedure well without complications. ESTIMATED BLOOD LOSS Less than 30 cc. TOTAL CONTRAST 120 cc. The right groin access site was closed with a Mynx closure device. RESULTS Angiography: 1. Right coronary artery is a non dominant vessel. It is patent with ANA LILAI III flow and non-obstructing coronary artery disease. 2. The left main is short and patent. It is giving off left circumflex artery and the LAD. 3. The left circumflex artery is a very big vessel. It is abutting the PDA. It is giving off two big diagonals which are patent with ANA LILIA III flow and supplying the lateral wall. The left circumflex has a patent stent in its proximal segment. The first OM also has a patent stent in its proximal segment. 4. LAD. It has a fair transapical vessel. It has minimal luminal irregularities throughout. It has a significant 75% lesion in the proximal segment before S1 right at the takeoff of the first diagonal. The first diagonal is a small and patent with ANA LILIA III flow. CONCLUSION 1. Successful PCI to proximal LAD in the setting of NST-elevation myocardial infarction. 2. Severe symptomatic aortic stenosis. 3. Preserved left ventricle systolic function. 4. Left dominant coronary system. RECOMMENDATIONS The patient will be taken back to her room for post cath care. She will be started on aspirin and Plavix as well as aggressive medical management for her coronary artery disease. Regarding her aortic stenosis which is severe, the patient will be worked up by heart valve team for a possible TAVR. MD KENDRICK Oreilly/CHARISSE /3:44 PM /10:09 AM RADHA
[2017-04-19] MEDS: RESP: ALBUTEROL 2.5 MG/IPRATROPIUM 0.5 MG NEB (SCH) NEB ×3 (12:42→19:30)
--- NOTE | 2017-04-19 13:27 | HHI.PR ---
Subjective Remarks Follow-up severe aortic stenosis/non-ST elevation GA/diastolic CHF exacerbation 04/19/17-patient seen and examined, status post PCI/JENNIFER; currently on 3 L nasal cannula oxygen. Denies any chest pain or significant shortness of breath Objective Vitals Vital Signs Date Time Temp Pulse Resp B/P (MAP) Pulse Ox O2 Delivery O2 Flow Rate FiO2 04/19/17 12:44 94 Nasal Cannula 3.00 04/19/17 12:40 63 04/19/17 11:18 67 04/19/17 11:05 98.6 67 16 138/64 (88) 95 04/19/17 10:28 72 04/19/17 09:02 79 04/19/17 08:43 68 04/19/17 07:03 97.6 74 16 138/64 (88) 96 04/19/17 07:01 68 04/19/17 06:00 65 04/19/17 05:47 93 Nasal Cannula 4.00 04/19/17 05:00 77 04/19/17 04:00 67 04/19/17 03:00 64 04/19/17 03:00 98.5 67 16 123/54 (77) 97 04/19/17 02:00 61 04/19/17 01:00 60 04/19/17 00:00 62 04/18/17 23:00 98.7 65 16 115/53 (73) 95 04/18/17 23:00 60 04/18/17 22:00 68 04/18/17 21:00 74 04/18/17 20:00 98.4 75 16 150/64 (92) 94 04/18/17 20:00 75 I/O 04/18/17 04/18/17 04/18/17 04/19/17 04/19/17 04/19/17 07:00 15:00 23:00 07:00 15:00 23:00 Intake Total 1012 ml Output Total 400 ml 2500 ml Balance -400 ml -1488 ml Intake Oral 240 ml IV Total 772 ml Output Urine Total 400 ml 2500 ml # Voids 1 # Bowel Movements 0 Result Diagram: 04/19/17 0435 04/19/17 0435 Imaging Last Impressions Myocardial Perfusion Scan Nuc Med 04/18/17 06 Signed Impressions: Service Date/Time: Tuesday, April 18, 2017 13:06 - CONCLUSION: Defects as described above. RISK CATEGORY: Intermediate (1-3%% Annual Mortality Rate ) Mahendra Rincon MD FACR Chest CTA 04/18/17 0000 Signed Impressions: Service Date/Time: Tuesday, April 18, 2017 17:48 - CONCLUSION: 1. Aortic measurements as above. 2. 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 Ultrasound examination is recommended if clinically indicated. 3. Left rib fractures as described above Alvin Sanchez MD Chest X-Ray 04/17/17 0700 Signed Impressions: Service Date/Time: Monday, April 17, 2017 07:03 - CONCLUSION: 1. Cardiomegaly. 2. There are advanced interstitial changes which appear chronic. There is no pleural effusion. 3. There are calcified nodules in the chest wall along the left axillary region. The patient is post left mastectomy. No prior imaging is available to assess for stability. The calcified nature of these would suggest they're likely benign. Bradley Rincon MD CT Angiography 04/17/17 0000 Signed Impressions: Service Date/Time: Monday, April 17, 2017 08:09 - CONCLUSION: 1. No pulmonary embolus is identified. 2. Interstitial fibrotic changes. 3. There are old calcified nodes in the right dahlia. 4. There is a small right basilar effusion. 5. Mild cardiomegaly. 6. There is infiltrate in the right upper lobe with consolidation concerning for pneumonia. 7. There are consolidative change in both lung bases. 8. 2.5 x 1.5 cm pleural-based nodule on the left. This is nonspecific in appearance by CT. 9. Old rib fractures on the left with exuberant calcified callus formation. Bradley Rincon MD Objective Remarks GENERAL: NAD SKIN: Warm and dry. HEAD: Normocephalic. EYES: No scleral icterus. No injection or drainage. NECK: Supple, trachea midline. No JVD or lymphadenopathy. CARDIOVASCULAR: Regular rate and rhythm with aortic murmur grade 3 RESPIRATORY: Breath sounds equal bilaterally. No accessory muscle use. GASTROINTESTINAL: Abdomen soft, non-tender, nondistended. MUSCULOSKELETAL: No cyanosis, or edema. BACK: Nontender without obvious deformity. No CVA tenderness. Procedures PCI/JENNIFER 04/18/17 A/P Problem List: (1) Diabetes mellitus, type II ICD Code: E11.9 - Type 2 diabetes mellitus without complications (2) Hyperlipidemia ICD Code: E78.5 - Hyperlipidemia, unspecified (3) Benign hypertension ICD Code: I10 - Essential (primary) hypertension (4) CHF exacerbation ICD Code: I50.9 - Heart failure, unspecified (5) Flash pulmonary edema ICD Code: J81.0 - Acute pulmonary edema (6) Acute respiratory failure with hypoxia ICD Code: J96.01 - Acute respiratory failure with hypoxia Status: Acute (7) Atypical chest pain ICD Code: R07.89 - Other chest pain (8) NSTEMI (non-ST elevated myocardial infarction) ICD Code: I21.4 - Non-ST elevation (NSTEMI) myocardial infarction (9) Diastolic CHF due to valvular disease ICD Code: I38 - Endocarditis, valve unspecified; I50.30 - Unspecified diastolic (congestive) heart failure (10) Severe aortic stenosis ICD Code: I35.0 - Nonrheumatic aortic (valve) stenosis Assessment and Plan Patient is a 81-year-old female with Severe aortic stenosis Appreciate input from cardiothoracic surgery However open AVR not recommended instead TAVR vs medical management Non-ST elevation [place] s/p PCI/JENNIFER 04/18/17 Continue with aspirin, Plavix, Coreg Cardiology managing Acute respiratory failure with hypoxia Pneumonia vs CHF exacerbation - Patient responded with treatment with BiPAP, bronchodilator, IV Lasix 1 in ED - Currently on nasal cannula 2 L oxygen - Pulmonary infiltrate on CTA - Patient was given azithromycin and Azactam, switched to Levaquin 750 mg daily. - Continue with DuoNeb's - Monitor respiratory status Diastolic CHF exacerbation - Currently on Lasix 40 mg IV twice a day - Continue Imdur - 2-D echo showed normal left ventricular size, wall thickness is at the upper limits of normal, LV function ejection fraction 50-55% Hypertension - Continue Coreg, Norvasc - Monitor BP trend Diabetes type 2 - Insulin sliding scale and consider NovoLog 70/30 - Hemoglobin A1c pending DVT prophylaxis: Juan A Hay MD Apr 19, 2017 13:27
[2017-04-19] MEDS: FUROSEMIDE 40 MG/4 ML VIAL IV PUSH SCH (18:03)
[2017-04-19] MEDS: METFORMIN HOLD POST IV CONTRAST SCH (18:10)
[2017-04-19 18:52] LABS: HEMOGLOBIN A1a 1.7 %; HEMOGLOBIN A1b 1.3 %; HEMOGLOBIN Ao 81.9 %; HEMOGLOBIN F 1.2 %; HEMOGLOBIN LA1C 2.2 %; HEMOGLOBIN P3 4.4 %
[2017-04-19] MEDS ORDERED: POTASSIUM CHLORIDE 20 MEQ CONTROLLED RELEASE TAB PO ONE (21:15)
[2017-04-19] MEDS: ATORVASTATIN 10 MG TAB PO SCH (21:31)
[2017-04-20] VITALS (36 sets, daily range): BP systolic 119–149; BP diastolic 47–70; PULSE 60–88; RESP 14–20; TEMP 98.1–99; O2SAT 90–94
[2017-04-20] MEDS: RESP: ALBUTEROL 2.5 MG/IPRATROPIUM 0.5 MG NEB (SCH) NEB ×4 (06:41→20:07)
[2017-04-20] MEDS: ISOSORBIDE MONONITRATE 60 MG TAB PO SCH (06:41)
[2017-04-20 06:51] LABS: HDL CHOLESTEROL 52.2 MG/DL (40.0-60.0)
[2017-04-20] MEDS: INSULIN ASPART SUPPLEMENTAL SCALE SQ SCH ×4 (08:00→21:00)
[2017-04-20] MEDS: SODIUM CHLORIDE 0.9% FLUSH 10 ML FLUSH IV FLUSH SCH ×2 (08:57→21:31)
[2017-04-20] MEDS: CLOPIDOGREL 75 MG TAB PO SCH (08:57)
[2017-04-20] MEDS: PANTOPRAZOLE SOD 40 MG DELAYED RELEASE TAB PO SCH (08:57)
[2017-04-20] MEDS: RAMIPRIL 5 MG CAP PO SCH ×2 (08:58→21:29)
[2017-04-20] MEDS: amLODIPine BESYLATE 5 MG TAB PO SCH (08:58)
[2017-04-20] MEDS: CARVEDILOL 12.5 MG TAB PO SCH ×2 (08:58→21:29)
[2017-04-20] MEDS: ASPIRIN 81 MG CHEW TAB PO SCH (08:58)
[2017-04-20] MEDS: FUROSEMIDE 40 MG/4 ML VIAL IV PUSH SCH ×2 (08:59→18:32)
[2017-04-20] MEDS: LEVOFLOXACIN 500 MG PREMIX INJ 100 ML IV SCH (09:02)
--- NOTE | 2017-04-20 12:15 | PD.CARD.PN ---
Subjective Subjective Remarks no CV complaints still requiring O2 on 2L overnight s/p PCI/LAD Objective Medications Current Medications Medications (Trade) Dose Ordered Sig/Orxie Route Start Time Stop Time Status Last Admin (NS Flush) 2 ml UNSCH PRN IV FLUSH 04/17/17 10:30 (NS Flush) 2 ml BID IV FLUSH 04/17/17 21:00 04/20/17 08:57 (Tylenol) 650 mg Q4H PRN PO 04/17/17 10:30 (Zofran Inj) 4 mg Q6H PRN IVP 04/17/17 10:30 (Tylenol) 650 mg Q6H PRN PO 04/17/17 10:30 (Narcan Inj) 0.4 mg UNSCH PRN IV PUSH 04/17/17 10:30 (Milk Of Magnesia Liq) 30 ml Q12H PRN PO 04/17/17 10:30 (Duoneb Neb) 1 ampule Q2HR NEB PRN NEB 04/17/17 10:30 04/19/17 05:46 (Vasotec Inj) 2.5 mg Q6H PRN IV PUSH 04/17/17 10:30 (Norvasc) 5 mg DAILY PO 04/17/17 12:00 04/20/17 08:58 (Lipitor) 10 mg HS PO 04/17/17 21:00 04/19/17 21:31 (Coreg) 12.5 mg BID PO 04/17/17 12:00 04/20/17 08:58 Patient Own Medication PT OWN MED: AZELAST... DAILY NASAL 04/18/17 09:00 Future Hold (Protonix) 40 mg DAILY PO 04/18/17 09:00 04/20/17 08:57 (Altace) 10 mg BID PO 04/17/17 21:00 04/20/17 08:58 (D50w (Vial) Inj) 50 ml UNSCH PRN IV PUSH 04/17/17 10:45 (Glucagon Inj) 1 mg UNSCH PRN OTHER 04/17/17 10:45 (NovoLOG SUPPLEMENTAL SCALE) 1 ACHS SLIDING SCALE SQ 04/17/17 12:00 04/20/17 08:00 (Nitrostat Sl) 0.4 mg Q5M PRN SL 04/17/17 10:45 Levofloxacin/ Dextrose 100 ml @ 100 mls/hr Q24H IV 04/18/17 09:00 04/20/17 09:02 (Aspirin Chew) 81 mg DAILY PO 04/19/17 09:00 04/20/17 08:58 (Plavix) 75 mg DAILY PO 04/19/17 09:00 04/20/17 08:57 (Atropine Inj) 0.5 mg UNSCH PRN IV PUSH 04/18/17 16:00 (Zofran Inj) 4 mg Q4H PRN IV PUSH 04/18/17 16:00 Miscellaneous Information HOLD METFORMIN FOR... Q24H .XX 04/18/17 18:10 04/20/17 18:09 (Lasix Inj) 40 mg BID@18 IV PUSH 04/19/17 18:00 04/20/17 08:59 (Imdur) 30 mg DAILY@0700 PO 04/20/17 07:00 04/20/17 06:41 (Duoneb Neb) 1 ampule QID NEB NEB 04/19/17 12:00 04/20/17 06:41 Vital Signs / I&O Vital Signs Date Time Temp Pulse Resp B/P (MAP) Pulse Ox O2 Delivery O2 Flow Rate FiO2 04/20/17 11:10 65 04/20/17 11:05 98.5 64 18 119/47 (71) 94 04/20/17 09:17 72 04/20/17 08:59 73 04/20/17 07:30 68 04/20/17 07:05 98.1 72 20 139/60 (86) 93 04/20/17 07:00 84 04/20/17 06:43 94 Nasal Cannula 3.00 04/20/17 06:00 80 04/20/17 05:00 64 04/20/17 04:00 64 04/20/17 03:30 98.4 72 16 133/58 (83) 94 04/20/17 03:00 65 04/20/17 02:00 70 04/20/17 01:00 68 04/20/17 00:00 64 04/19/17 23:00 98.5 73 16 144/62 (89) 95 04/19/17 23:00 74 04/19/17 22:00 66 04/19/17 21:00 70 04/19/17 20:00 76 04/19/17 20:00 97.7 74 16 139/55 (83) 92 04/19/17 19:33 98 Nasal Cannula 2.00 04/19/17 19:00 74 04/19/17 18:00 68 04/19/17 17:00 66 04/19/17 16:34 95 Nasal Cannula 2.00 04/19/17 16:00 72 04/19/17 15:15 98.4 66 16 158/67 (97) 97 04/19/17 15:00 76 04/19/17 14:00 72 04/19/17 13:01 70 04/19/17 12:44 94 Nasal Cannula 3.00 04/19/17 12:40 63 I/O 04/19/17 04/19/17 04/19/17 04/20/17 04/20/17 04/20/17 07:00 15:00 23:00 07:00 15:00 23:00 Intake Total 1012 ml 480 ml 480 ml Output Total 2500 ml 200 ml 1250 ml Balance -1488 ml 280 ml -770 ml Intake Oral 240 ml 480 ml 480 ml IV Total 772 ml Output Urine Total 2500 ml 200 ml 1250 ml # Voids 1 # Bowel Movements 0 1 0 Physical Exam GENERAL: Well-nourished, well-developed patient. SKIN: Warm and dry. HEAD: Normocephalic. EYES: No scleral icterus. No injection or drainage. NECK: Supple, trachea midline. No JVD or lymphadenopathy. CARDIOVASCULAR: Regular rate and rhythm without murmurs, gallops, or rubs. RESPIRATORY: Bilateral rales GASTROINTESTINAL: Abdomen soft, non-tender, nondistended. EXTREMITIES: No cyanosis, or edema. NEUROLOGICAL: Awake, alert, and oriented x 3. Non-focal. Laboratory Laboratory Tests Test 04/20/17 06:07 Triglycerides Level 98 MG/DL Cholesterol Level 108 MG/DL LDL Cholesterol 36 MG/DL HDL Cholesterol 52.2 MG/DL Cholesterol/HDL Ratio 2.06 RATIO Imaging Last Impressions Myocardial Perfusion Scan Nuc Med 04/18/17 0600 Signed Impressions: Service Date/Time: Tuesday, April 18, 2017 13:06 - CONCLUSION: Defects as described above. RISK CATEGORY: Intermediate (1-3%% Annual Mortality Rate ) Mahendra Rincon MD FACR Chest CTA 04/18/17 0000 Signed Impressions: Service Date/Time: Tuesday, April 18, 2017 17:48 - CONCLUSION: 1. Aortic measurements as above. 2. 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 Ultrasound examination is recommended if clinically indicated. 3. Left rib fractures as described above Alvin Sanchez MD Chest X-Ray 04/17/17 0700 Signed Impressions: Service Date/Time: Monday, April 17, 2017 07:03 - CONCLUSION: 1. Cardiomegaly. 2. There are advanced interstitial changes which appear chronic. There is no pleural effusion. 3. There are calcified nodules in the chest wall along the left axillary region. The patient is post left mastectomy. No prior imaging is available to assess for stability. The calcified nature of these would suggest they're likely benign. Bradley Rincon MD CT Angiography 04/17/17 0000 Signed Impressions: Service Date/Time: Monday, April 17, 2017 08:09 - CONCLUSION: 1. No pulmonary embolus is identified. 2. Interstitial fibrotic changes. 3. There are old calcified nodes in the right dahlia. 4. There is a small right basilar effusion. 5. Mild cardiomegaly. 6. There is infiltrate in the right upper lobe with consolidation concerning for pneumonia. 7. There are consolidative change in both lung bases. 8. 2.5 x 1.5 cm pleural-based nodule on the left. This is nonspecific in appearance by CT. 9. Old rib fractures on the left with exuberant calcified callus formation. Bradley Rincon MD Assessment and Plan Problem List: (1) Severe aortic stenosis ICD Codes: I35.0 - Nonrheumatic aortic (valve) stenosis Plan: 81 y/o F admitted with NSTEMI s/p PCI/JENNIFER to Prox LAD, also severe symptomatic Aortic Stenosis. Still requiring O2. Very weak. Afebrile and hemodynamically stable. 3/4 Frail and STS 5%. Evaluated by CT surgery Dr. Blackburn and Yeni appreciate recs. Currently to weak. Will need pre-rehab before TAVR. Recommendations: 1. Cont ASA and Plavix 2. Cont Lasix to 40mg IV BID 3. PT/OT consult 5. Strict I&O 6. Daily weight 7. Low salt diet 8. DuoNeb INH 9. PT/OT 10. CM consult for rehab (2) Diabetes mellitus, type II ICD Codes: E11.9 - Type 2 diabetes mellitus without complications (3) Hyperlipidemia ICD Codes: E78.5 - Hyperlipidemia, unspecified (4) Flash pulmonary edema ICD Codes: J81.0 - Acute pulmonary edema (5) CHF exacerbation ICD Codes: I50.9 - Heart failure, unspecified (6) Dyspnea on exertion ICD Codes: R06.09 - Other forms of dyspnea Status: Acute Thrasher-Bolivar Le MD Apr 20, 2017 12:15
--- NOTE | 2017-04-20 12:41 | HHI.PR ---
Subjective Remarks Follow-up severe aortic stenosis/non-ST elevation [place]/diastolic CHF exacerbation 04/19/17-patient seen and examined, status post PCI/JENNIFER; currently on 3 L nasal cannula oxygen. Denies any chest pain or significant shortness of breath 04/20/17-patient seen and examined, patient reports shortness of breath but denies any chest pain. Objective Vitals Vital Signs Date Time Temp Pulse Resp B/P (MAP) Pulse Ox O2 Delivery O2 Flow Rate FiO2 04/20/17 12:05 60 04/20/17 11:10 65 04/20/17 11:05 98.5 64 18 119/47 (71) 94 04/20/17 09:17 72 04/20/17 08:59 73 04/20/17 07:30 68 04/20/17 07:05 98.1 72 20 139/60 (86) 93 04/20/17 07:00 84 04/20/17 06:43 94 Nasal Cannula 3.00 04/20/17 06:00 80 04/20/17 05:00 64 04/20/17 04:00 64 04/20/17 03:30 98.4 72 16 133/58 (83) 94 04/20/17 03:00 65 04/20/17 02:00 70 04/20/17 01:00 68 04/20/17 00:00 64 04/19/17 23:00 98.5 73 16 144/62 (89) 95 04/19/17 23:00 74 04/19/17 22:00 66 04/19/17 21:00 70 04/19/17 20:00 76 04/19/17 20:00 97.7 74 16 139/55 (83) 92 04/19/17 19:33 98 Nasal Cannula 2.00 04/19/17 19:00 74 04/19/17 18:00 68 04/19/17 17:00 66 04/19/17 16:34 95 Nasal Cannula 2.00 04/19/17 16:00 72 04/19/17 15:15 98.4 66 16 158/67 (97) 97 04/19/17 15:00 76 04/19/17 14:00 72 04/19/17 13:01 70 04/19/17 12:44 94 Nasal Cannula 3.00 04/19/17 12:40 63 I/O 04/19/17 04/19/17 04/19/17 04/20/17 04/20/17 04/20/17 07:00 15:00 23:00 07:00 15:00 23:00 Intake Total 1012 ml 480 ml 480 ml Output Total 2500 ml 200 ml 1250 ml Balance -1488 ml 280 ml -770 ml Intake Oral 240 ml 480 ml 480 ml IV Total 772 ml Output Urine Total 2500 ml 200 ml 1250 ml # Voids 1 # Bowel Movements 0 1 0 Result Diagram: 04/19/175 04/19/17434 Imaging Last Impressions Myocardial Perfusion Scan Nuc Med 04/18/17 06 Signed Impressions: Service Date/Time: Tuesday, April 18, 2017 13:06 - CONCLUSION: Defects as described above. RISK CATEGORY: Intermediate (1-3%% Annual Mortality Rate ) Mahendra Rincon MD FACR Chest CTA 04/18/17 0000 Signed Impressions: Service Date/Time: Tuesday, April 18, 2017 17:48 - CONCLUSION: 1. Aortic measurements as above. 2. 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 Ultrasound examination is recommended if clinically indicated. 3. Left rib fractures as described above Alvin Sanchez MD Chest X-Ray 04/17/17 0700 Signed Impressions: Service Date/Time: Monday, April 17, 2017 07:03 - CONCLUSION: 1. Cardiomegaly. 2. There are advanced interstitial changes which appear chronic. There is no pleural effusion. 3. There are calcified nodules in the chest wall along the left axillary region. The patient is post left mastectomy. No prior imaging is available to assess for stability. The calcified nature of these would suggest they're likely benign. Bradley Rincon MD CT Angiography 04/17/17 0000 Signed Impressions: Service Date/Time: Monday, April 17, 2017 08:09 - CONCLUSION: 1. No pulmonary embolus is identified. 2. Interstitial fibrotic changes. 3. There are old calcified nodes in the right dahlia. 4. There is a small right basilar effusion. 5. Mild cardiomegaly. 6. There is infiltrate in the right upper lobe with consolidation concerning for pneumonia. 7. There are consolidative change in both lung bases. 8. 2.5 x 1.5 cm pleural-based nodule on the left. This is nonspecific in appearance by CT. 9. Old rib fractures on the left with exuberant calcified callus formation. Bradley Rincon MD Objective Remarks GENERAL: NAD SKIN: Warm and dry. HEAD: Normocephalic. EYES: No scleral icterus. No injection or drainage. NECK: Supple, trachea midline. No JVD or lymphadenopathy. CARDIOVASCULAR: Regular rate and rhythm with aortic murmur grade 3 RESPIRATORY: Breath sounds equal bilaterally. No accessory muscle use. GASTROINTESTINAL: Abdomen soft, non-tender, nondistended. MUSCULOSKELETAL: No cyanosis, or edema. BACK: Nontender without obvious deformity. No CVA tenderness. Procedures PCI/JENNIFER 04/18/17 A/P Problem List: (1) Diabetes mellitus, type II ICD Code: E11.9 - Type 2 diabetes mellitus without complications (2) Hyperlipidemia ICD Code: E78.5 - Hyperlipidemia, unspecified (3) Benign hypertension ICD Code: I10 - Essential (primary) hypertension (4) CHF exacerbation ICD Code: I50.9 - Heart failure, unspecified (5) Flash pulmonary edema ICD Code: J81.0 - Acute pulmonary edema (6) Acute respiratory failure with hypoxia ICD Code: J96.01 - Acute respiratory failure with hypoxia Status: Acute (7) Atypical chest pain ICD Code: R07.89 - Other chest pain (8) NSTEMI (non-ST elevated myocardial infarction) ICD Code: I21.4 - Non-ST elevation (NSTEMI) myocardial infarction (9) Diastolic CHF due to valvular disease ICD Code: I38 - Endocarditis, valve unspecified; I50.30 - Unspecified diastolic (congestive) heart failure (10) Severe aortic stenosis ICD Code: I35.0 - Nonrheumatic aortic (valve) stenosis Assessment and Plan Patient is a 81-year-old female with Severe aortic stenosis Appreciate input from cardiothoracic, vascular surgery However open AVR not recommended instead TAVR vs medical management Non-ST elevation [place] s/p PCI/JENNIFER 04/18/17 Continue with aspirin, Plavix, Coreg Cardiology managing Acute respiratory failure with hypoxia Pneumonia vs CHF exacerbation - Currently on nasal cannula 2 L oxygen - Pulmonary infiltrate on CTA - Currently on Levaquin 750 mg daily. - Continue with DuoNeb's - Monitor respiratory status Diastolic CHF exacerbation - Currently on Lasix 40 mg IV twice a day - Continue Imdur - 2-D echo showed normal left ventricular size, wall thickness is at the upper limits of normal, LV function ejection fraction 50-55% Hypertension - Continue Coreg, Norvasc - Monitor BP trend Diabetes type 2 - Insulin sliding scale and consider NovoLog 70/30 - Hemoglobin A1c pending DVT prophylaxis: Juan A Hay MD Apr 20, 2017 12:41
[2017-04-20] MEDS: ATORVASTATIN 10 MG TAB PO SCH (21:29)
[2017-04-21] VITALS (23 sets, daily range): BP systolic 124–152; BP diastolic 53–70; PULSE 60–70; RESP 16; TEMP 98.5–98.8; O2SAT 84–98
[2017-04-21] MEDS: RESP: ALBUTEROL 2.5 MG/IPRATROPIUM 0.5 MG NEB (SCH) NEB ×3 (07:39→15:38)
[2017-04-21] MEDS: LEVOFLOXACIN 500 MG PREMIX INJ 100 ML IV SCH (09:01)
[2017-04-21] MEDS: CARVEDILOL 12.5 MG TAB PO SCH (09:01)
[2017-04-21] MEDS: ISOSORBIDE MONONITRATE 60 MG TAB PO SCH (09:01)
[2017-04-21] MEDS: amLODIPine BESYLATE 5 MG TAB PO SCH (09:01)
[2017-04-21] MEDS: CLOPIDOGREL 75 MG TAB PO SCH (09:01)
[2017-04-21] MEDS: ASPIRIN 81 MG CHEW TAB PO SCH (09:01)
[2017-04-21] MEDS: PANTOPRAZOLE SOD 40 MG DELAYED RELEASE TAB PO SCH (09:01)
[2017-04-21] MEDS: INSULIN ASPART SUPPLEMENTAL SCALE SQ SCH ×2 (09:02→13:22)
[2017-04-21] MEDS: SODIUM CHLORIDE 0.9% FLUSH 10 ML FLUSH IV FLUSH SCH (09:05)
[2017-04-21] MEDS: RAMIPRIL 5 MG CAP PO SCH (09:25)
[2017-04-21] MEDS: FUROSEMIDE 40 MG/4 ML VIAL IV PUSH SCH (09:26)
--- NOTE | 2017-04-21 11:43 | HHI.PR ---
Subjective Remarks Follow-up severe aortic stenosis/non-ST elevation PR/diastolic CHF exacerbation 04/19/17-patient seen and examined, status post PCI/JENNIFER; currently on 3 L nasal cannula oxygen. Denies any chest pain or significant shortness of breath 04/20/17-patient seen and examined, patient reports shortness of breath but denies any chest pain. 04/21/17-patient seen and examined, no acute event overnight, afebrile, looking forward discharge to rehabilitation for short stay Objective Vitals Vital Signs Date Time Temp Pulse Resp B/P (MAP) Pulse Ox O2 Delivery O2 Flow Rate FiO2 04/21/17 07:39 95 Nasal Cannula 2.00 04/21/17 07:30 98.5 68 16 152/70 (97) 84 04/21/17 06:00 64 04/21/17 05:00 60 04/21/17 04:00 62 04/21/17 03:30 65 16 149/67 (94) 93 04/21/17 03:00 62 04/21/17 02:00 60 04/21/17 01:00 62 04/21/17 00:00 64 04/20/17 23:00 66 16 137/57 (83) 93 04/20/17 23:00 68 04/20/17 22:00 64 04/20/17 21:00 72 04/20/17 20:07 90 21 04/20/17 20:00 99.0 77 14 149/70 (96) 93 04/20/17 20:00 68 04/20/17 19:00 88 04/20/17 18:00 64 04/20/17 17:00 60 04/20/17 16:00 70 04/20/17 15:06 70 20 134/56 (82) 92 04/20/17 15:00 60 04/20/17 14:00 64 04/20/17 13:00 62 04/20/17 12:32 92 04/20/17 12:05 60 04/20/17 12:00 76 I/O 04/20/17 04/20/17 04/20/17 04/21/17 04/21/17 04/21/17 06:59 14:59 22:59 06:59 14:59 22:59 Intake Total 480 ml 540 ml 720 ml Output Total 1250 ml 650 ml 2425 ml Balance -770 ml -110 ml -1705 ml Intake Oral 480 ml 440 ml 720 ml IV Total 100 ml Output Urine Total 1250 ml 650 ml 2425 ml # Bowel Movements 0 Result Diagram: 04/19/17 0435 04/20/17 1825 Objective Remarks GENERAL: NAD SKIN: Warm and dry. HEAD: Normocephalic. EYES: No scleral icterus. No injection or drainage. NECK: Supple, trachea midline. No JVD or lymphadenopathy. CARDIOVASCULAR: Regular rate and rhythm with aortic murmur grade 3 RESPIRATORY: Breath sounds equal bilaterally. No accessory muscle use. GASTROINTESTINAL: Abdomen soft, non-tender, nondistended. MUSCULOSKELETAL: No cyanosis, or edema. BACK: Nontender without obvious deformity. No CVA tenderness. Procedures PCI/JENNIFER 04/18/17 A/P Problem List: (1) Diabetes mellitus, type II ICD Code: E11.9 - Type 2 diabetes mellitus without complications (2) Hyperlipidemia ICD Code: E78.5 - Hyperlipidemia, unspecified (3) Benign hypertension ICD Code: I10 - Essential (primary) hypertension (4) CHF exacerbation ICD Code: I50.9 - Heart failure, unspecified (5) Flash pulmonary edema ICD Code: J81.0 - Acute pulmonary edema (6) Acute respiratory failure with hypoxia ICD Code: J96.01 - Acute respiratory failure with hypoxia Status: Acute (7) Atypical chest pain ICD Code: R07.89 - Other chest pain (8) NSTEMI (non-ST elevated myocardial infarction) ICD Code: I21.4 - Non-ST elevation (NSTEMI) myocardial infarction (9) Diastolic CHF due to valvular disease ICD Code: I38 - Endocarditis, valve unspecified; I50.30 - Unspecified diastolic (congestive) heart failure (10) Severe aortic stenosis ICD Code: I35.0 - Nonrheumatic aortic (valve) stenosis Assessment and Plan Patient is a 81-year-old female with Severe aortic stenosis Appreciate input from cardiothoracic, vascular surgery However open AVR not recommended instead TAVR after patient completed rehabilitation Non-ST elevation PR s/p PCI/JENNIFER 04/18/17 Continue with aspirin, Plavix, Coreg Cardiology managing Acute respiratory failure with hypoxia Pneumonia vs CHF exacerbation - Currently on nasal cannula 2 L oxygen - Pulmonary infiltrate on CTA - Currently on Levaquin 750 mg daily. - Continue with DuoNeb's - Monitor respiratory status - Performed Walk test prior to discharge Diastolic CHF exacerbation - Currently on Lasix 40 mg IV twice a day - Continue Imdur - 2-D echo showed normal left ventricular size, wall thickness is at the upper limits of normal, LV function ejection fraction 50-55% Hypertension - Continue Coreg, Norvasc - Monitor BP trend Diabetes type 2 - Insulin sliding scale and consider NovoLog 70/30 - Hemoglobin A1c pending DVT prophylaxis: Juan A Hay MD Apr 21, 2017 11:43
[2017-04-21] MEDS ORDERED: POTASSIUM CHLORIDE 10 MEQ CONTROLLED RELEASE TAB PO ONE (11:45)
[2017-04-21] MEDS ORDERED: FURO40TA PO (14:16)
[2017-04-21] MEDS ORDERED: LEVA500T20 PO (14:16)
[2017-04-21] MEDS ORDERED: PLAV75TA29 PO (14:16)
[2017-04-21] MEDS ORDERED: POTA20TA5 PO (14:16)
[2017-04-21] MEDS ORDERED: OXYGEN NAS.CANULA (14:18)
--- NOTE | 2017-04-21 14:18 | HHI.DS ---
Discharge Summary Admission Date Apr 17, 2017 at 09:40 Discharge Date: Apr 21, 2017 Admitting Diagnosis acute hypoxic resp failure, chest pain (1) Diabetes mellitus, type II ICD Code: E11.9 - Type 2 diabetes mellitus without complications (2) Hyperlipidemia ICD Code: E78.5 - Hyperlipidemia, unspecified (3) Benign hypertension ICD Code: I10 - Essential (primary) hypertension (4) CHF exacerbation ICD Code: I50.9 - Heart failure, unspecified (5) Flash pulmonary edema ICD Code: J81.0 - Acute pulmonary edema (6) Acute respiratory failure with hypoxia ICD Code: J96.01 - Acute respiratory failure with hypoxia Status: Acute (7) Atypical chest pain ICD Code: R07.89 - Other chest pain (8) NSTEMI (non-ST elevated myocardial infarction) ICD Code: I21.4 - Non-ST elevation (NSTEMI) myocardial infarction (9) Diastolic CHF due to valvular disease ICD Code: I38 - Endocarditis, valve unspecified; I50.30 - Unspecified diastolic (congestive) heart failure (10) Severe aortic stenosis ICD Code: I35.0 - Nonrheumatic aortic (valve) stenosis Procedures PCI/JENNIFER 04/18/17 Brief History - From Admission 81-year-old female with a history of diabetes type 2, CHF, hypertension was brought to the ED for evaluation of worsening symptoms or shortness of breath times several days duration along with an acute onset of substernal chest pain without any radiation and rated 7/10 in intensity. Patient has been have been traveling from [place] to [place] and now to [place]. Initially left [place] 2 weeks ago, however have arrived here in [facility] for a reunion since Tuesday. She noted over the past few days worsening shortness of breath on exertion without any symptoms of cough or chest pain. However early this morning at 5 AM, patient complains of acute onset of chest pain along with severe dyspnea and requested that her take her to the hospital. She has no febrile episode or denies any bladder or bowel dysfunction. Patient had a history of cardiac stent placed, and the last one was placed in 2002 -2003. There has been no change in her medications. CBC/BMP: 04/19/17 0435 04/20/17 1825 Significant Findings Laboratory Tests Test 04/18/17 20:31 04/19/17 04:35 04/20/17 06:07 04/20/17 18:25 Red Blood Count 3.66 MIL/MM3 (4.00-5.30) Hemoglobin 9.3 GM/DL (11.6-15.3) Hematocrit 28.2 % (35.0-46.0) Mean Corpuscular Volume 77.1 FL (80.0-100.0) Mean Corpuscular Hemoglobin 25.4 PG (27.0-34.0) Random Glucose 145 MG/DL (74-106) Calcium Level 8.3 MG/DL (8.5-10.1) Potassium Level 3.3 MEQ/L (3.5-5.1) Estimat Glomerular Filtration Rate 85 ML/MIN (>89) 67 ML/MIN (>89) Hemoglobin A1c 7.1 % (4.3-6.0) Cholesterol Level 108 MG/DL (120-200) Test 04/21/17 06:31 PE at Discharge GENERAL: NAD SKIN: Warm and dry. HEAD: Normocephalic. EYES: No scleral icterus. No injection or drainage. NECK: Supple, trachea midline. No JVD or lymphadenopathy. CARDIOVASCULAR: Regular rate and rhythm with aortic murmur grade 3 RESPIRATORY: Breath sounds equal bilaterally. No accessory muscle use. GASTROINTESTINAL: Abdomen soft, non-tender, nondistended. MUSCULOSKELETAL: No cyanosis, or edema. BACK: Nontender without obvious deformity. No CVA tenderness. Hospital Course Patient admitted secondary to acute respiratory failure with hypoxemia, atypical chest pain and found to be in non-ST elevation CA for which cardiology was consulted and she underwent cardiac catheterization with stent placed. A thoracic surgery was consulted secondary to severe aortic stenosis for evaluation for open AVR however it was recommended instead TAVR. Due to acute on chronic diastolic CHF her diuretic therapy was adjusted accordingly and patient discharged on 40 mg by mouth twice a day. She was treated for community -acquired pneumonia with Levaquin with significant improvement of symptoms. Patient's oxygen saturation was maintained above 92%. She was placed on a sliding scale insulin with monitoring of her blood glucose. Patient was continued on treatment for hypertension. Physical therapy was consulted. She will need one week of short term rehabilitation prior to scheduled TAVR Pt Condition on Discharge: Stable Discharge Disposition: Discharge to SNF Discharge Time: > 30 minutes Discharge Instructions DIET: Follow Instructions for: Heart Healthy Diet Activities you can perform: Regular-No Restrictions Follow up Referrals: Cardiology - 1 Week PCP Follow-up - 1 Week New Medications: Oxygen (O2) (Oxygen (O2)) Inha LITER HAN.CANULA CONTINUOUS for Prevent Hypoxemia, #1 Oxygen Concentrator Portable Gaseous 2 L/min via Nasal Canula Continuous For 99 months Clopidogrel (Plavix) 75 Mg Tab 75 MG PO DAILY for Prevent Blood Clot, #30 TAB 11 Refills Furosemide (Furosemide) 40 Mg Tab 40 MG PO BID@09,18 for Prevent Heart Failure, #60 TAB 11 Refills Levofloxacin (Levaquin) 500 Mg Tablet 500 MG PO DAILY for Infection, #3 MG Potassium Chloride Microencaps (Potassium Chloride Microencaps) 20 Meq Tab 20 MEQ PO DAILY for Electrolyte Replacement, #60 CAP 11 Refills Continued Medications: Amlodipine (Amlodipine) 5 Mg Tab 5 MG PO DAILY for Blood Pressure Management, #30 TAB 0 Refills Aspirin (Aspirin) 81 Mg Chew 81 MG CHEW DAILY, TAB 0 Refills Atorvastatin (Atorvastatin) 10 Mg Tab 10 MG PO HS for Cholesterol Management, #30 TAB 0 Refills Azelastine Nasal [place] (Azelastine Nasal [place]) 0.1% [place] 2 SPRAY EACH NARE DAILY for Allergies, #1 BOTTLE 0 Refills Betamethasone Dipropionate Aug Topical (Betamethasone Dipropionate Aug Topical) 0.05% Cream 1 APPLIC TOPICAL BID for Dermatoses, #50 GM 0 Refills Calcium Carbonate-Vitamin D (Calcium 600+D 200) 600-200 Mg-Unit Tab 1 TAB PO BID for Nutritional Supplement, TAB 0 Refills Carvedilol (Carvedilol) 12.5 Mg Tab 12.5 MG PO BID, #60 TAB 0 Refills Cholecalciferol (Vitamin D3) 400 Unit Cap 800 UNITS PO DAILY for Nutritional Supplement, #1 BOTTLE 0 Refills Cyanocobalamin (B-12) 500 Mcg Subl 500 MCG SL DAILY for Nutritional Supplement, TAB.SL [address] (Esomeprazole DR) 40 Mg Capdr 40 MG PO DAILY, #30 CAP 0 Refills Ferrous Sulfate (Iron) 325 Mg Cap 325 MG PO DAILY for Nutritional Supplement, #30 TAB 0 Refills Isosorbide Mononitrate ER (Isosorbide Mononitrate ER) 60 Mg Tab 60 MG PO DAILY for Prevent Chest Pain, #30 TAB 0 Refills Nitroglycerin SL (Nitroglycerin SL) 0.4 Mg Subl 0.4 MG SL DIRECTED PRN for CHEST PAIN, #100 TAB.SL 0 Refills ONE TABLET UNDER THE TONGUE NEEDED FOR CHEST PAIN, MAY REPEAT EVERY FIVE MINUTES FOR A TOTAL OF 3 DOSES OR CALL 911 IF NO RELIEF Ramipril (Ramipril) 10 Mg Cap 10 MG PO BID, #60 CAP 0 Refills Sitagliptin-Metformin (Janumet) 50-1,000 Mg Tab 1 TAB PO BID for Blood Sugar Management, #60 TAB 0 Refills Ubidecarenone (Coenzyme Q-10) 50 Mg Capsule 100 MG PO DAILY [mvt iron folic acid ] () Discontinued Medications: Furosemide (Furosemide) 20 Mg Tab 20 MG PO DAILY, #30 TAB 0 Refills Juan A Jimenez MD Apr 21, 2017 14:18
--- NOTE | 2017-04-21 15:22 | PD.CARD.PN ---
Subjective Subjective Remarks no complaints Objective Medications Current Medications Medications (Trade) Dose Ordered Sig/Roxie Route Start Time Stop Time Status Last Admin (NS Flush) 2 ml UNSCH PRN IV FLUSH 04/17/17 10:30 (NS Flush) 2 ml BID IV FLUSH 04/17/17 21:00 04/21/17 09:05 (Tylenol) 650 mg Q4H PRN PO 04/17/17 10:30 (Zofran Inj) 4 mg Q6H PRN IVP 04/17/17 10:30 (Tylenol) 650 mg Q6H PRN PO 04/17/17 10:30 (Narcan Inj) 0.4 mg UNSCH PRN IV PUSH 04/17/17 10:30 (Milk Of Magnesia Liq) 30 ml Q12H PRN PO 04/17/17 10:30 (Duoneb Neb) 1 ampule Q2HR NEB PRN NEB 04/17/17 10:30 04/19/17 05:46 (Vasotec Inj) 2.5 mg Q6H PRN IV PUSH 04/17/17 10:30 (Norvasc) 5 mg DAILY PO 04/17/17 12:00 04/21/17 09:01 (Lipitor) 10 mg HS PO 04/17/17 21:00 04/20/17 21:29 (Coreg) 12.5 mg BID PO 04/17/17 12:00 04/21/17 09:01 Patient Own Medication PT OWN MED: AZELAST... DAILY NASAL 04/18/17 09:00 Future Hold (Protonix) 40 mg DAILY PO 04/18/17 09:00 04/21/17 09:01 (Altace) 10 mg BID PO 04/17/17 21:00 04/21/17 09:25 (D50w (Vial) Inj) 50 ml UNSCH PRN IV PUSH 04/17/17 10:45 (Glucagon Inj) 1 mg UNSCH PRN OTHER 04/17/17 10:45 (NovoLOG SUPPLEMENTAL SCALE) 1 ACHS SLIDING SCALE SQ 04/17/17 12:00 04/21/17 13:22 (Nitrostat Sl) 0.4 mg Q5M PRN SL 04/17/17 10:45 (Aspirin Chew) 81 mg DAILY PO 04/19/17 09:00 04/21/17 09:01 (Plavix) 75 mg DAILY PO 04/19/17 09:00 04/21/17 09:01 (Atropine Inj) 0.5 mg UNSCH PRN IV PUSH 04/18/17 16:00 (Zofran Inj) 4 mg Q4H PRN IV PUSH 04/18/17 16:00 (Imdur) 30 mg DAILY@0700 PO 04/20/17 07:00 04/21/17 09:01 (Duoneb Neb) 1 ampule QID NEB NEB 04/19/17 12:00 04/21/17 12:15 (Lasix) 40 mg BID@,18 PO 04/21/17 18:00 (KCl) 20 meq DAILY PO 04/22/17 09:00 (Levaquin) 500 mg DAILY PO 04/22/17 09:00 04/24/17 10:00 Vital Signs / I&O Vital Signs Date Time Temp Pulse Resp B/P (MAP) Pulse Ox O2 Delivery O2 Flow Rate FiO2 04/21/17 11:30 98.8 63 16 124/53 (76) 91 04/21/17 07:39 95 Nasal Cannula 2.00 04/21/17 07:30 98.5 68 16 152/70 (97) 98 04/21/17 07:30 67 04/21/17 06:00 64 04/21/17 05:00 60 04/21/17 04:00 62 04/21/17 03:30 65 16 149/67 (94) 93 04/21/17 03:00 62 04/21/17 02:00 60 04/21/17 01:00 62 04/21/17 00:00 64 04/20/17 23:00 66 16 137/57 (83) 93 04/20/17 23:00 68 04/20/17 22:00 64 04/20/17 21:00 72 04/20/17 20:07 90 21 04/20/17 20:00 99.0 77 14 149/70 (96) 93 04/20/17 20:00 68 04/20/17 19:00 88 04/20/17 18:00 64 04/20/17 17:00 60 04/20/17 16:00 70 I/O 04/20/17 04/20/17 04/20/17 04/21/1712/17 10/12/17 07:00 15:00 23:00 07:00 15:00 23:00 Intake Total 480 ml 540 ml 720 ml Output Total 1250 ml 650 ml 2425 ml Balance -770 ml -110 ml -1705 ml Intake Oral 480 ml 440 ml 720 ml IV Total 100 ml Output Urine Total 1250 ml 650 ml 2425 ml # Bowel Movements 0 Physical Exam GENERAL: Well-nourished, well-developed patient. SKIN: Warm and dry. HEAD: Normocephalic. EYES: No scleral icterus. No injection or drainage. NECK: Supple, trachea midline. No JVD or lymphadenopathy. CARDIOVASCULAR: Regular rate and rhythm without murmurs, gallops, or rubs. RESPIRATORY: Bilateral rales GASTROINTESTINAL: Abdomen soft, non-tender, nondistended. EXTREMITIES: No cyanosis, or edema. NEUROLOGICAL: Awake, alert, and oriented x 3. Non-focal. Laboratory Laboratory Tests Test 04/20/17 18:25 04/21/17 06:31 Creatinine 0.82 MG/DL Estimat Glomerular Filtration Rate 67 ML/MIN Assessment and Plan Problem List: (1) Severe aortic stenosis ICD Codes: I35.0 - Nonrheumatic aortic (valve) stenosis Plan: 81 y/o F admitted with NSTEMI s/p PCI/JENNIFER to Prox LAD, also severe symptomatic Aortic Stenosis. Still requiring O2. Very weak. Afebrile and hemodynamically stable. 3/4 Frail and STS 5%. Evaluated by CT surgery Dr. Blackburn and Yeni appreciate recs. Currently to weak. Will need pre-rehab before TAVR. Recommendations: 1. Cont ASA and Plavix 2. Cont Lasix 3. PT/OT consult 5. Strict I&O 6. Daily weight 7. Low salt diet 8. DuoNeb INH 9. PT/OT 10. CM consult for rehab 11. Encourage ambulation (2) Diabetes mellitus, type II ICD Codes: E11.9 - Type 2 diabetes mellitus without complications (3) Hyperlipidemia ICD Codes: E78.5 - Hyperlipidemia, unspecified (4) Flash pulmonary edema ICD Codes: J81.0 - Acute pulmonary edema (5) CHF exacerbation ICD Codes: I50.9 - Heart failure, unspecified (6) Dyspnea on exertion ICD Codes: R06.09 - Other forms of dyspnea Status: Acute Thrasher-Mimi,Bolivar R MD Apr 21, 2017 15:22
[2017-04-21 16:07] LABS: HEMOGLOBIN A1a 1.4 %; HEMOGLOBIN A1b 1.3 %; HEMOGLOBIN Ao 81.4 %; HEMOGLOBIN F 1.2 %; HEMOGLOBIN LA1C 2.6 %; HEMOGLOBIN P3 5.9 %
[2017-04-21] MEDS ORDERED: FUROSEMIDE 40 MG TAB PO SCH (18:00)
[2017-04-22] MEDS ORDERED: POTASSIUM CHLORIDE 20 MEQ CONTROLLED RELEASE TAB PO SCH (09:00)
[2017-04-22] MEDS ORDERED: LEVOFLOXACIN 500 MG TAB PO SCH (09:00)
--- NOTE | 2017-04-22 11:55 | RSPPFT ---
DATE OF PROCEDURE: 04/19/17 COMMENTS: Spirometry with FVC of 1.4 predicted 2.5, FEV1 of 1.0 predicted 1.8, FEV1/FVC ratio 92% predicted 81%. IMPRESSION: On the basis of the above, patient appears to have a restrictive lung defect but lung volumes would be helpful if clinically indicated.
== END 2017-04-21 19:35 | DRG 246 ==
LOC: NEPE 06:52 → NEDA 09:40 → N05A 12:01 → UNDODISIN 15:35 → HCIS 04-18 15:37 → HCIN 04-18 20:04
PROVIDERS: ADMIT Hospitalist; ATTEND Hospitalist
PROC: 5A09357 Assistance with Respiratory Ventilation, Less than 24 Consecutive Hours, Continuous Positive Airway Pressure (ICD-10-PCS; principal; 2017-04-17)
PROC: 027034Z Dilation of Coronary Artery, One Artery with Drug-eluting Intraluminal Device, Percutaneous Approach (ICD-10-PCS; 2017-04-18)
PROC: 0T9B70Z Drainage of Bladder with Drainage Device, Via Natural or Artificial Opening (ICD-10-PCS; 2017-04-18)
PROC: 4A023N7 Measurement of Cardiac Sampling and Pressure, Left Heart, Percutaneous Approach (ICD-10-PCS; 2017-04-18)
PROC: B2111ZZ Fluoroscopy of Multiple Coronary Arteries using Low Osmolar Contrast (ICD-10-PCS; 2017-04-18)
PROC: B2151ZZ Fluoroscopy of Left Heart using Low Osmolar Contrast (ICD-10-PCS; 2017-04-18)
PROC: B41F1ZZ Fluoroscopy of Right Lower Extremity Arteries using Low Osmolar Contrast (ICD-10-PCS; 2017-04-18)
DX: I21.4 Non-ST elevation (NSTEMI) myocardial infarction (principal); J96.01 Acute respiratory failure with hypoxia; I50.33 Acute on chronic diastolic (congestive) heart failure; I25.110 Atherosclerotic heart disease of native coronary artery with unstable angina pectoris; E11.9 Type 2 diabetes mellitus without complications; I35.0 Nonrheumatic aortic (valve) stenosis; E78.5 Hyperlipidemia, unspecified; Z95.5 Presence of coronary angioplasty implant and graft; Z85.3 Personal history of malignant neoplasm of breast; Z87.891 Personal history of nicotine dependence; Z82.49 Family history of ischemic heart disease and other diseases of the circulatory system; I11.0 Hypertensive heart disease with heart failure; M17.0 Bilateral primary osteoarthritis of knee; Z92.3 Personal history of irradiation
CPT/HCPCS: 51702; 71010; 71275; 74174; 78451; 80048; 80053; 80061; 81001; 82550; 82565; 82948; 83036; 83605; 83880; 84132; 84484; 85002; 85025; 85027; 85610; 85730; 86850; 86900; 86901; 87040; 92928; 93005; 93017; 93306; 93454; 94002; 94010; 94620; 94640; 94664; 96365; 96375; A9502; C1725; C1760; C1769; C1874; C1887; C1893; G0269; J0456; J1644; J1650; J1815; J1940; J1956; J2250; J2720; J2785; J3010; J7030; J7050; Q9967

== ENCOUNTER 2017-04-27 05:07 | Inpatient (IN) | payer MEDICARE, BC ==
[~2017-04-27] VITALS: Ht 160 cm; Wt 71.5 kg
[2017-04-27] VITALS (17 sets, daily range): BP systolic 131–177; BP diastolic 35–72; PULSE 61–87; RESP 16–18; TEMP 97.2–98.9; O2SAT 90–98
[~2017-04-27 05:07] MED LIST: AMLO5TAB2 PO; ASPI81CH CHEW; ATOR10TA15 PO; AZEL1SPR2 EACH NARE; BETA0.0554 TOPICAL; CALCTAB19 PO; CARV12.52 PO; CHOL1CAP8 PO; CYAN500S SL; ESOM1CAP16 PO; FERR325C PO; FURO40TA PO; ISOS60TA PO; JANU50TA8 PO; LEVA500T20 PO; NITR1SUB3 SL; OXYGEN NAS.CANULA; PLAV75TA29 PO; POTA20TA5 PO; RAMI10CA PO; UBID50CA4 PO; [UNRECOGNIZED DRUG - MIXTURE]
[2017-04-27] MEDS ORDERED: SODIUM CHLORID 0.9% 500 ML IV PRN (05:30)
[2017-04-27] MEDS ORDERED: METOPROLOL TARTRATE 25 MG TAB PO PRN (05:30)
[2017-04-27] MEDS ORDERED: POVIDONE IODINE 5% (ANTISEPSIS KIT) 4 APPLICATIONS EACH NARE PRN (05:30)
[2017-04-27] MEDS ORDERED: VANCOMYCIN 1 GM in NS 250 ML IV PRN ×4 (05:30)
[2017-04-27] MEDS ORDERED: POVIDONE IODINE 5% (ANTISEPSIS KIT) EACH NARE PRN (05:30)
[2017-04-27] MEDS ORDERED: INSULIN HUMAN REGULAR 1,000 UNITS/10 ML VIAL SQ PRN (05:30)
[2017-04-27] MEDS ORDERED: ceFAZolin 2 GM PREMIX 50 ML IV PRN (05:30)
[2017-04-27] MEDS: SODIUM CHLOR 0.9% 1000 ML 1,000 ML IV SCH ×3 (05:30→19:52)
[2017-04-27] MEDS ORDERED: CHLORHEXIDINE GLUCONATE 2 % 1 PACK (2 CLOTHS) TOPICAL PRN ×2 (05:30)
[2017-04-27] MEDS ORDERED: LACTATED RINGER'S 1000 ML IV PRN (05:30)
[2017-04-27] MEDS ORDERED: MUPIROCIN 2% OINT 1 APPLIC/GM SYRINGE EACH NARE PRN (05:30)
[2017-04-27 05:55] LABS: AUTOMATED NEUTROPHIL # 6.7 TH/MM3 (1.8-7.7); BASOPHIL # 0.1 TH/MM3 (0-0.2); EOSINOPHIL # 0.2 TH/MM3 (0-0.4); EOSINOPHIL % 2.5 % (0.0-4.0); HEMATOCRIT 33.2 % (35.0-46.0); HEMO FLAGS DIFF FINAL; LYMPH % 13.1 % (9.0-44.0); LYMPHOCYTE # 1.2 TH/MM3 (1.0-4.8); MEAN CELL VOLUME 75.5 FL (80.0-100.0); MEAN CORPUSCULAR HEMOGLOBIN 25.7 PG (27.0-34.0); MONO % 12.6 % (0.0-8.0); NEUT % 70.8 % (16.0-70.0); PLATELET COUNT 469 TH/MM3 (150-450); WHITE BLOOD COUNT 9.4 TH/MM3 (4.0-11.0)
[2017-04-27 06:08] LABS: APTT (PATIENT) 27.4 SEC (24.3-30.1); PROTHROMBIN TIME - PATIENT 10.8 SEC (9.8-11.6)
[2017-04-27 06:19] LABS: POTASSIUM 3.9 MEQ/L (3.5-5.1)
[2017-04-27] MEDS ORDERED: PROTAMINE SULFATE 50 MG/5 ML VIAL ONE (06:24)
[2017-04-27] MEDS ORDERED: HEPARIN SODIUM - IV 10,000 UNITS/10 ML VIAL ONE (06:24)
[2017-04-27] MEDS: ASPIRIN 325 MG TAB PO PRN ×2 (06:35→06:36)
[2017-04-27] MEDS ORDERED: VANCOMYCIN HCL 1000 MG VIAL ONE (06:41)
[2017-04-27] MEDS ORDERED: SODIUM CHLOR 0.9% 250 ML INJ 250 ML ONE (06:41)
[2017-04-27] MEDS ORDERED: HEPARIN-NS/PF INJ 2,500 ML ONE (06:45)
[2017-04-27] MEDS ORDERED: CUSTODIOL HTK IRR SOLN 0 ML ONE (07:31)
--- NOTE | 2017-04-27 08:09 | MH ---
cc: ALL JOSUE DATE OF ADMISSION: 04/27/2017 DATE OF : 1935 HISTORY OF PRESENT ILLNESS 81-year-old female with past medical history significant for CAD status post PCI , COPD, diabetes mellitus type 2, hypertension, hyperlipidemia, obesity, previous breast cancer with radiation and severe aortic stenosis. The patient presented to the emergency department one week ago with a complains of chest pain and shortness of breath. She was admitted with a non-STEMI also was diagnosed with severe symptomatic aortic stenosis. with worsening shortness of breath on minimal exertion. The patient was evaluated by our heart valve team who deemed her high risk for open heart surgery given frailty and STS score. Thus she is being admitted today for elective transcutaneous replacement of the aortic valve. REVIEW OF SYSTEMS Negative except for what is mentioned in the HPI. PAST MEDICAL HISTORY 1. CAD. 2. COPD 3. Diabetes mellitus. 4. Hypertension. 5. Hyperlipidemia. 6. Previous breast cancer with radiation. 7. Severe symptomatic aortic stenosis, [place] [employer] classification 3. PAST SURGICAL HISTORY 1. Left breast lumpectomy with radiation in 2002. 2. Cataract surgery. 3. Cardiac stents, 1997, 2003 and 2016. SOCIAL HISTORY Denies illicit drug use, alcohol abuse or smoking. FAMILY HISTORY Noncontributory. PHYSICAL EXAMINATION VITAL SIGNS: Temperature 97, respiratory rate 20, blood pressure 130/80. O2 sats 100% in room air. GENERAL: She is awake, alert, oriented x3, in no acute distress. NECK: No JVD. No carotid bruits. HEART: Regular rate and rhythm. She has a 3/6 systolic ejection murmur in the aortic focus. LUNGS: Clear to auscultation bilaterally. ABDOMEN: Benign. Obese. EXTREMITIES: No cyanosis or edema. Pulses throughout. LABORATORY Hemoglobin 11, hematocrit 33, platelet count 377. Creatinine 0.83. TAVR work-up: STS score 7.2%. Frailty 3/4. EKG: sinus rhythm with LVH and nonspecific ST changes. PFTs: Restrictive lung disease. ECHOCARDIOGRAPHY Aortic jet velocity of 4.7, mean gradient of 46, calculated valve area of 0.8, ejection fraction 50-55%. CORONARY ANGIOGRAM: There is a patent stent in the LAD. This was a drug- eluting stent in the setting of 80% stenosis. The patient also has a 40% lesion on the diagonal vessel. The other vessels have nonobstructive coronary artery disease. TAVR CTA shows a short annulus diameter of 20.3, a long annulus diameter of 26.0 , and annular area of 405. There is no calcification in the LVOT. The aortic valve is trileaflet. STJ has no calcification. The sinus of Valsalva diameter is 29.5. The STJ is 26.1. The left coronary height is 11.6. The right coronary height is 18.6. Iliacs: She has PAV. The minimal luminal diameter on the right is 5.4, on the left is 7.3. ASSESSMENT AND PLAN 81-year-old female with severe symptomatic aortic stenosis, [place] [employer] classification 3, acute on chronic diastolic heart failure, CAD, diabetes, hypertension, COPD, has been admitted today for TAVR in the setting of severe symptomatic aortic stenosis. The risks and benefits of TAVR including but not limited to complete heart block, needing permanent pacemaker, bleeding, infection, neurovascular trauma, stroke, emergent bypass surgery and , have been explained to the patient. The patient understands the risks and she is willing to proceed. Keep n.p.o. for TAVR today. Further management to be determined. All Josue MD, MPH, [facility] THREE DIMENSIONAL MAP MODELER/BT /7:22 AM /7:32 AM RADHA
[2017-04-27] MEDS ORDERED: IOHEXOL IV ONE (08:38)
[2017-04-27] MEDS ORDERED: INSULIN REGULAR 100 UNITS in NS 100 ML IV SCH (09:00)
--- NOTE | 2017-04-27 09:48 | PD.OP ---
cc: Bolivar Hardy MD; Fariba Jaime MD; Vic Rodriguez MD Operative Report Date of Surgery: Apr 27, 2017 Preoperative Diagnosis: (1) Severe aortic stenosis (2) Diastolic CHF due to valvular disease Postoperative Diagnosis: same Procedure: Transcatheter aortic valve replacement with a 23 Kusum 3 tissue valve Balloon aortic valvuloplasty with an 18 True Balloon Percutaneous left femoral artery acess with Perclose closure Percutaneous right femoral access Aortography Fluoroscopy Anesthesia: Dr. Littlejohn Surgeon: Fariba Jaime Co-surgeon - Dr. Thrasher Potato Pancake Frier(s): Dr. Rodriguez Operation and Findings: The risks, benefits, complications, treatment options, and expected outcomes were discussed with the patient. The possibilities of reaction to medication, pulmonary aspiration, perforation of viscus, bleeding, recurrent infection, the need for additional procedures, failure to diagnose a condition, and creating a complication requiring transfusion or operation were discussed with the patient. The patient concurred with the proposed plan, giving informed consent. The site of surgery properly noted/marked. The patient was taken to the hybrid operating room, identified as [facility] and the procedure verified as Transcatheter Aortic Valve Replacement. A Time Out was held and the above information confirmed. Standard monitoring lines and Moore catheter were placed. General anesthesia was induced. The patient was prepped and draped in a sterile fashion. Initially, right femoral arterial access was acquired using a Seldinger percutaneous technique. The details of this procedure were dictated under separate note by cardiology. Once a pigtail was positioned in the aortic annulus and a temporary transvenous pacemaker wire was placed in the right ventricular apex and tested, a the left femoral artery was accessed using a needle followed by a guidewire under fluoroscopic guidance. Serial dilators were used to dilate the left femoral artery to 14 [place] caliber. The Jerez sheath was then inserted into the left femoral artery up to the distal aorta. Perclose devices were positioned for later closure. Arch aortography was performed to define the implant view. A balloon aortic valvuloplasty was then performed using a 18 x 6 True balloon with the patient being paced at 180 beats per minute. A 23 Jerez Kusum 3 transcatheter aortic valve was then positioned in the annulus and deployed with the patient being paced at 180 beats per minute. Following deployment, the valve apparatus was withdrawn and arch aortography and SAÚL were performed to assess the valve. The valve had no significant perivalvular leaks. Gradients were then measured and the sheath was slowly withdrawn to the proximal left common iliac artery under fluoroscopic guidance. A runoff arteriogram was then performed to assess left common iliac vessels. No dissections or perforations were noted. Therefore , the sheath was withdrawn under direct vision removed. Perclose devices were secured and protamine administered. Sterile dressings were placed. At the end of the operation, all sponge, instruments, and needle counts were correct. The patient was transferred to the CICU in stable condition. Findings: 23 S3 valve deployed with no PV leaks Implants: 23 Kusum 3 tissue valve Complications: none Disposition: to CVICU in stable condition Fariba Jaime MD Apr 27, 2017 09:48
[2017-04-27] MEDS ORDERED: DEXTROSE 50% IN WATER 50 ML VIAL(D50) IV PUSH PRN ×2 (10:15→12:00)
--- NOTE | 2017-04-27 10:22 | PD.PROCEDR ---
Procedure Note Procedure Procedure: Transesophageal Echocardiography Diagnosis: Severe aortic stenosis Indications: Perioperative planning for transcatheter aortic valve replacement Consent: Obtained Anesthesia: GETA Description of the Procedure: The patient was sedated and mechanically ventilated. The echo probe was inserted easily and without resistance. At the conclusion of the procedure, the echo probe was removed. Please see detailed echocardiogram report for formal findings. Preliminary Findings (not confirmed): Pre-procedure: 1) Normal Biventricular function 2) Severe aortic stenosis 3) No clinically significant valvular lesions 4) No pericardial effusion 5) Small [id number] intra-atrial shunt by color flow Doppler Post-procedure 1) s/p successful placement of transcatheter bioprosthetic aortic valve 2) no evidence of bioprosthetic valve stenosis 3) no perivalvular leak 4) no clinically significant valvular lesions 5) no pericardial effusion The patient tolerated the procedure well with no hemodynamic instability. There were no immediate complications noted. I personally performed the procedure. Sae Wood MD Apr 27, 2017 10:22
--- NOTE | 2017-04-27 10:39 | PD.CONS ---
HPI Service Critical Care Medicine Consult Requested By Dr. Thrasher Reason for Consult perioperative management of medical comorbidities Primary Care Physician No Primary Care Physician History of Present Illness This is a 81-year-old female with past medical history of coronary disease status post recent drug-eluting stent to the LAD, COPD, type 2 diabetes, hypertension, hyperlipidemia who presents with severe symptomatically aortic stenosis for elective transcatheter aortic valve replacement. Intraoperative events were uncomplicated. She did have intraoperative hyperglycemia which required insulin infusion. She arrives to the CVICU extubated, arousing from anesthesia, in stable condition. Due to her arousing from anesthesia, additional information from the patient is unavailable because she is somnolent. Patient denies pain complaints. Very limited review systems is otherwise negative. Review of Systems ROS Limitations: Clinical Condition, Altered Mental Status ROS Arousing from anesthesia Past Family Social History Allergies: Coded Allergies: Penicillins (Verified Allergy, Unknown, 04/17/17) Sulfa (Sulfonamide Antibiotics) (Verified Allergy, Unknown, 04/17/17) Past Medical History Coronary artery disease status post recent drug-eluting stent to the LAD COPD Diabetes Hypertension Hyperlipidemia Prior breast cancer status post radiation therapy Severe symptomatically aortic stenosis [place] Heart Association class III symptoms Past Surgical History Left breast lumpectomy with radiation to S3 Cataract surgery PCI, 1987, 2000, 2016 Reported Medications Furosemide 40 Mg Tab 40 Mg PO BID@,18 Potassium Chloride Microencaps 20 Meq Tab 20 Meq PO DAILY Janumet (Sitagliptin-Metformin) 50-1,000 Mg Tab 1 Tab PO BID Ramipril 10 Mg Cap 10 Mg PO BID Nitroglycerin SL (Nitroglycerin) 0.4 Mg Subl 0.4 Mg SL DIRECTED PRN ONE TABLET UNDER THE TONGUE NEEDED FOR CHEST PAIN, MAY REPEAT EVERY FIVE MINUTES FOR A TOTAL OF 3 DOSES OR CALL 911 IF NO RELIEF [mvt iron folic acid ] Isosorbide Mononitrate ER (Isosorbide Mononitrate) 60 Mg Tab 60 Mg PO DAILY Azelastine Nasal [place] (Azelastine HCl) 0.1% [place] 2 [place] EACH NARE DAILY Iron (Ferrous Sulfate) 325 Mg Cap 325 Mg PO DAILY Esomeprazole DR 40 Mg Capdr 40 Mg PO DAILY B-12 (Cyanocobalamin) 500 Mcg Subl 500 Mcg SL DAILY Coenzyme Q-10 (Ubidecarenone) 50 Mg Capsule 100 Mg PO DAILY Vitamin D3 (Cholecalciferol) 400 Unit Cap 800 Units PO DAILY Carvedilol 12.5 Mg Tab 12.5 Mg PO BID Calcium 600+D 200 (Calcium Carbonate-Vitamin D) 600-200 Mg-Unit Tab 1 Tab PO BID Betamethasone Dipropionate Aug Topical 0.05% Cream 1 Applic TOPICAL BID Atorvastatin (Atorvastatin Calcium) 10 Mg Tab 10 Mg PO HS Aspirin 81 Mg Chew 81 Mg CHEW DAILY Amlodipine (Amlodipine Besylate) 5 Mg Tab 5 Mg PO DAILY Active Ordered Medications See MAR Family History Review of the chart and found to be noncontributory to her acute illness Social History Denies tobacco, alcohol, drugs of abuse. Physical Exam Vital Signs Vital Signs Date Time Temp Pulse Resp B/P (MAP) Pulse Ox O2 Delivery O2 Flow Rate FiO2 04/27/17 06:06 97.9 72 18 161/65 (97) 92 Physical Exam GENERAL: Frail elderly female, lying in bed, arousing from anesthesia HEENT: Normocephalic. Atraumatic. Pupils equal, round, reactive, conjugate. Mucous membranes are moist NECK: Trachea is midline. There is no JVD. Right IJ inducer sheath with transvenous pacer in place, dressing intact CHEST: Facemask oxygen. Unlabored. SPO2 94% CARDIOVASCULAR: Normal rate, regular rhythm. Sinus by telemetry. Transvenous pacer in place, not currently paced, VVI backup rate of 50 ABDOMEN: Soft, nontender, nondistended. No guarding. MUSCULOSKELETAL: Pulses 2+. No peripheral edema. Bilateral groin sites dressings intact clean dry, no evidence of hematoma NEUROLOGICAL: RASS -2. Arousing from anesthesia. Moves all extremities. No focal deficits. Laboratory Laboratory Tests Test 04/27/17 05:35 White Blood Count 9.4 Red Blood Count 4.40 Hemoglobin 11.3 Hematocrit 33.2 Mean Corpuscular Volume 75.5 Mean Corpuscular Hemoglobin 25.7 Mean Corpuscular Hemoglobin Concent 34.0 Red Cell Distribution Width 16.0 Platelet Count 469 Mean Platelet Volume 7.4 Neutrophils (%) (Auto) 70.8 Lymphocytes (%) (Auto) 13.1 Monocytes (%) (Auto) 12.6 Eosinophils (%) (Auto) 2.5 Basophils (%) (Auto) 1.0 Neutrophils # (Auto) 6.7 Lymphocytes # (Auto) 1.2 Monocytes # (Auto) 1.2 Eosinophils # (Auto) 0.2 Basophils # (Auto) 0.1 CBC Comment DIFF FINAL Differential Comment Prothrombin Time 10.8 Prothromb Time International Ratio 1.0 Activated Partial Thromboplast Time 27.4 Blood Urea Nitrogen 16 Creatinine 0.81 Random Glucose 154 Calcium Level 9.5 Sodium Level 132 Potassium Level 3.9 Chloride Level 94 Carbon Dioxide Level 29.0 Anion Gap 9 Estimat Glomerular Filtration Rate 68 Result Diagram: 04/27/17 0535 04/27/17 0535 Assessment and Plan Assessment and Plan Assessment: 81-year-old female postop day 0 status post transcatheter aortic valve replacement via right groin access. s/p TAVR 04/27 - frequent neurovascular checks - close monitoring of urine output - continue pacer VVI backup rate of 50 - anticoagulation per Dr. Thrasher CAD s/p recent PCI - continue DAPT Hyperlipidemia - continue home statin Hypertension - hold home carvedilol, amlodipine, ramipril, lasix - goal sbp 120 - 180. Diabetes - hold home oral hypoglycemics - high dose q4h SSI COPD - wean o2 for goal spo2 > 90% - aggressive pulmonary toilet - prn nebs. Critical Care medicine will continue to follow along as long as patient remains in the CVICU. Code Status Full Code Discussed Condition With Dr. Thrasher, Dr. Rodriguez, Sae Deshpande MD Apr 27, 2017 10:39
--- NOTE | 2017-04-27 11:24 | PD.CARD ---
Cardiology Procedure Note Procedure Name: Left TF TAVR Procedure Date: Apr 27, 2017 Procedure Note: PREOPERATIVE DIAGNOSIS - Severe aortic stenosis with Preserved LV systolic function - Symptoms: shortness of breath, fatigue, recurrent heart failure. [place] Heart Association III. - Chronic Diastolic Heart Failure - Hypertension, - Hyperlipidemia, - DM II - Restrictive lung disease - CAD s/p PCI/JENNIFER to LAD - PAD - Frailty 3/4 - STS 7.2% POSTOPERATIVE DIAGNOSIS - Severe aortic stenosis with Preserved LV systolic function - Symptoms: shortness of breath, fatigue, recurrent heart failure. [place] Heart Association III. - Chronic Diastolic Heart Failure - Hypertension, - Hyperlipidemia, - DM II - Restrictive lung disease - CAD s/p PCI/JENNIFER to LAD - PAD - Frailty 3/4 - STS 7.2% OPERATIVE PROCEDURE - Left Transfemoral Transcatheter aortic valve replacement with a 23mm +1 S3 Jerez Sapiens Valve, - Balloon aortic valvuloplasty with a 18mm True balloon. - Aortic root angiogram. - Placement of a pigtail catheter for angiography. - Temporary pacemaker insertion. - Perclose left common femoral arteries. ANESTHESIA Dr. Eron Jaime STAVE BLOCK SPLITTER Blueprint Machine Operator: Dr. Bolivar Hardy Waxer Floor: Dr. Vic Rodriguez. Echo support: Dr. Franklyn Wood. INDICATIONS 81-year-old female with severe symptomatic aortic stenosis with progressive symptom of heart failure. The patient has been evaluated for aortic replacement and the patient was felt to be intermediate risk for conventional aortic valve replacement by Dr. Blackburn and Dr. Jaime on the basis of frailty, STS score and comorbidities. She has been evaluated for and accepted for transcatheter aortic valve replacement (TAVR) after extensive review of patient' s chart. The risk of the procedure have been discussed with the patient at length and consents have been signed to proceed as planned. PROCEDURE DESCRIPTION Under general anesthesia a Transesophageal echocardiogram probe was placed in the esophagus and used throughout the procedure to evaluate aortic valve as well as other valve structures. Intraoperative transesophageal echo confirmed severe aortic stenosis with preserved EF. Then using 1% Lidocaine for local anesthesia and a micropuncture kit a right femoral artery was entered percutaneously and a 6-T[place] sheath was inserted in the left common femoral artery. A the pigtail catheter was advanced over a J 0.035 wire around the arch of the aorta and placed in the noncoronary cusp for aortic angiography in order to get multiple views for deployment of the S3 Kusum Valve. Using 1% Lidocaine for local anesthesia and a micropuncture kit the left valve arterial access site was accessed. Angiography was performed through the micropuncture sheath to confirmed adequate position or any complications. Then a 8-[place] sheath was inserted into the left common femoral artery. This was followed by Preclosing the artery with three Perclose devices. The patient was fully heparinized with an ACT checked. Then a Supracore 0.035 wire was advanced into the ascending aorta and followed by dilating the common femoral artery with a 10-Tanzanian dilator this was followed with an introduction of a 14 [place] Jerez Valve sheath. Then we used an AL-1 over a straight 300 cm Stiff Amplatz wire to cross the aortic valve with the tip left in the mid left ventricular chamber. This was followed by insertion of 6 [place] angled pigtail and reshaping of the Amplatz wire into the ventricle. Then pigtail was removed and a 18mm True balloon was the introduced for balloon aortic valvuloplasty (BAV) with rapid pacing. After BAV was performed we inserted a 23mm S3 Jerez Kusum valve. The valve was mounted in a balloon in the ascending aorta and then advanced across the aortic valve using a pigtail catheter, fluoroscopy and the SAÚL to confirm position. After confirmation of the position of the valve it was successfully deployed by balloon inflation during rapid pacing. Post deployment, there were no signs of paravalvular leaks on the SAÚL. The patient tolerated the procedure well without complications. The catheter was removed. We pulled back the delivery system of the valve which was then removed of the body. Then the delivery sheath was then removed from the right femoral artery and a Perclosed. Finally, the pigtail was removed and then the sheath on the left side were removed with pressure held with a Perclose in the left femoral artery and a Mynx in the vein. This concluded the operation. Postoperative transesophageal echocardiogram demonstrated adequate function of the aortic bioprosthesis. The aortic valve area postprocedure was 1.37cm2 The post implant mean gradient was 6 mmHg. The post implant aortic valve maximal velocity 1.9. There was no aortic insufficiency or paravalvular leaks. COMPLICATIONS None. DISPOSITION -Admit to CVICU in stable condition for post cath care. -DAPT with aspirin and clopidogrel -Early extubation -OOB after bedrest -Temporary pacemaker will remain in place for at least 24hrs -Telemetry monitoring -EP consult per protocol -Resume home medications MD Hayley Oreilly Pedro R MD Apr 27, 2017 11:24
[2017-04-27] MEDS ORDERED: CLOPIDOGREL 75 MG TAB PO ONE (11:30)
[2017-04-27] MEDS ORDERED: ACETAMINOPHEN 325 MG TAB PO PRN (11:45)
[2017-04-27] MEDS ORDERED: GLUCAGON 1 MG/ML VIAL OTHER PRN (11:45)
[2017-04-27] MEDS ORDERED: SODIUM CHLOR 0.9% 1000 ML INJ 1,000 ML IV SCH (11:45)
[2017-04-27] MEDS ORDERED: RESP: ALBUTEROL 2.5 MG/IPRATROPIUM 0.5 MG NEB (PRN) INH (12:00)
[2017-04-27] MEDS ORDERED: ATROPINE SULFATE 1 MG/ML VIAL IV PUSH PRN (12:00)
[2017-04-27] MEDS ORDERED: MISC INFORMATION OTHER ONE (12:00)
[2017-04-27] MEDS: INSULIN NovoLIN REGULAR SUPPLEMENTAL SCALE SQ SCH ×3 (12:00→20:13)
[2017-04-27] MEDS ORDERED: INSULIN NovoLIN REGULAR SUPPLEMENTAL SCALE SQ SCH (12:00)
--- NOTE | 2017-04-27 13:47 | EKG ---
Date Performed: 04/27/2017 Time Performed: 05:48:28 PTAGE: 81 years EKG: Sinus rhythm Inferior infarct - age undetermined Possible left ventricular hypertrophy Lateral T wave changes are probably due to ventricular hypertrophy Abnormal ECG PREVIOUS TRACING : 04/17/2017 19.58 DOCTOR: Vic Rodriguez Interpretating Date/Time 04/27/2017 13:42:58
[2017-04-27] MEDS: RESP: ALBUTEROL 2.5 MG/IPRATROPIUM 0.5 MG NEB (SCH) INH ×2 (15:11→20:36)
--- NOTE | 2017-04-27 20:21 | MB ---
cc: ALL JOSUE HANSCY M.D. DATE OF CONSULTATION 04/27/2017 Electrophysiology consult. REASON FOR CONSULTATION Status post TAVR for possible A-V block and conduction disease. HISTORY OF THE PRESENT ILLNESS Mrs. Lea is a 81-year-old female with history of diabetes mellitus, high blood pressure, hyperlipidemia, COPD, previous PTCA plus stent and severe aortic stenosis who will undergo transaortic valve replacement today. A temporary pacemaker was inserted. I was consulted for evaluation and management. The chart was reviewed. The patient was evaluated. ALLERGIES PENICILLIN AND SULFA. SOCIAL HISTORY Negative for smoking and drinking. FAMILY HISTORY Noncontributory to her current medical condition. MEDICATIONS Currently she is on: 1. Heparin. 2. She received Vancomycin. 3. Aspirin. 4. Lipitor 10 mg a day. 5. Plavix 75 mg a day. 6. Ferrous sulfate. 7. Metformin is on hold. 8. She is on insulin subcu p.r.n. 9. She is on metoprolol. REVIEW OF SYSTEMS Currently she refers no chest pain. She refers feeling tired and sleepy. No vomiting. No fever. PHYSICAL EXAMINATION GENERAL: Alert, fully oriented, eating dinner, talking to her . VITAL SIGNS: Blood pressure is 150/67, pulse 75, respiratory rate 18. LUNGS: Ventilated. CARDIOVASCULAR: S1-S2. Regular. No gallop. No murmur. ABDOMEN: Soft. No mass. No bruits. EXTREMITIES: No edema. NECK: The right jugular area with central venous access. LABORATORY DATA Hemoglobin is 11.3, white blood cell 9.4. Potassium 3.9, creatinine 0.82. INR 1.0. ASSESSMENT AND RECOMMENDATIONS Mrs. Lea is currently stable. Baseline was sinus rhythm with some diffuse ST changes. There is no change in the baseline EKG. There is a narrow QRS. She is doing well. At this point my recommendation is observation. If there is any conduction disturbance further decision will be taken. I will see her on a p.r.n. basis. MD JASON Hall/CHARISSE /5:45 PM /8:08 PM
[2017-04-27] MEDS ORDERED: ATORVASTATIN 10 MG TAB PO SCH (21:00)
[2017-04-28] VITALS (22 sets, daily range): BP systolic 140–175; BP diastolic 33–79; PULSE 70–95; RESP 16–20; TEMP 98.4–99; O2SAT 89–93
[2017-04-28] MEDS: RESP: ALBUTEROL 2.5 MG/IPRATROPIUM 0.5 MG NEB (SCH) INH ×3 (02:38→16:41)
[2017-04-28] MEDS: SODIUM CHLOR 0.9% 1000 ML 1,000 ML IV SCH ×2 (03:18→13:30)
[2017-04-28 04:54] LABS: MEAN CORPUSCULAR HEMOGLOBIN 25.7 PG (27.0-34.0); MEAN CORPUSCULAR HGB CONC 33.9 % (32.0-36.0); PLATELET COUNT 331 TH/MM3 (150-450); RED BLOOD COUNT 3.55 MIL/MM3 (4.00-5.30); REVIEW FLAG FINAL; WHITE BLOOD COUNT 10.1 TH/MM3 (4.0-11.0)
[2017-04-28] MEDS: INSULIN NovoLIN REGULAR SUPPLEMENTAL SCALE SQ SCH ×5 (05:14→16:40)
[2017-04-28 05:16] LABS: ALKALINE PHOSPHATASE 66 U/L (45-117); ALT (GPT) 21 U/L (10-53); ANION GAP 10 MEQ/L (5-15); AST (GOT) 13 U/L (15-37); BICARBONATE 23.5 MEQ/L (21.0-32.0); BLOOD UREA NITROGEN 6 MG/DL (7-18); CHLORIDE 101 MEQ/L (98-107); GLOMERULAR FILTRATION RATE 111 ML/MIN (>89); POTASSIUM 3.5 MEQ/L (3.5-5.1); SODIUM (NA) 134 MEQ/L (136-145); TOTAL BILIRUBIN ADULT 0.4 MG/DL (0.2-1.0)
--- NOTE | 2017-04-28 08:38 | PD.CARD.PN ---
Subjective Subjective Remarks No complaints No overnight events Objective Medications Current Medications Medications (Trade) Dose Ordered Sig/Roxie Route Start Time Stop Time Status Last Admin Sodium Chloride 1,000 ml @ 125 mls/hr Q8H IV 04/27/17 05:30 04/28/17 03:18 (Betadine 5% Antisepsis Kit) 1 applic FIXED ROUTE OPERATOR PRN EACH NARE 04/27/17 05:30 04/30/17 05:29 (Bactroban Nasal 2% Oint) 1 applic FIXED ROUTE OPERATOR PRN EACH NARE 04/27/17 05:30 04/30/17 05:29 (Chlorhexidine 2% Cloth) 3 pack FIXED ROUTE OPERATOR PRN TOPICAL 04/27/17 05:30 04/30/17 05:29 04/27/17 06:13 Vancomycin HCl 1 gm/Sodium Chloride 250 ml @ 250 mls/hr FIXED ROUTE OPERATOR PRN IV 04/27/17 05:30 Lactated Ringer's 1,000 ml @ 30 mls/hr Q24H PRN IV 04/27/17 05:30 04/30/17 05:29 Sodium Chloride 500 ml @ 30 mls/hr [id number] PRN IV 04/27/17 05:30 04/30/17 05:29 (Lopressor) 25 mg FIXED ROUTE OPERATOR PRN PO 04/27/17 05:30 04/30/17 05:29 (Betadine 5% Antisepsis Kit) 1 applic FIXED ROUTE OPERATOR PRN EACH NARE 04/27/17 05:30 04/30/17 05:29 04/27/17 06:13 (Chlorhexidine 2% Cloth) 3 pack FIXED ROUTE OPERATOR PRN TOPICAL 04/27/17 05:30 04/30/17 05:29 (NovoLIN R INJ) See Protocol Table ... FIXED ROUTE OPERATOR PRN SQ 04/27/17 05:30 04/30/17 05:29 (Tylenol) 650 mg Q4H PRN PO 04/27/17 11:45 04/28/17 11:44 (Atropine Inj) 0.5 mg UNSCH PRN IV PUSH 04/27/17 12:00 04/28/17 11:59 (Plavix) 75 mg DAILY PO 04/28/17 09:00 (Glucagon Inj) 1 mg UNSCH PRN OTHER 04/27/17 11:45 (Aspirin Chew) 81 mg DAILY CHEW 04/28/17 09:00 (Lipitor) 10 mg HS PO 04/27/17 21:00 04/27/17 20:14 (Ferrous Sulfate) 325 mg DAILY PO 04/28/17 09:00 (Duoneb Neb) 1 ampule Q6HR NEB INH 04/27/17 16:00 04/28/17 08:22 (Duoneb Neb) 1 ampule Q2HR NEB PRN INH 04/27/17 12:00 (D50w (Vial) Inj) 25 ml UNSCH PRN IV PUSH 04/27/17 12:00 (NovoLIN R SUPPLEMENTAL SCALE) 1 Q4HR SQ 04/27/17 12:00 04/28/17 05:14 Vital Signs / I&O Vital Signs Date Time Temp Pulse Resp B/P (MAP) Pulse Ox O2 Delivery O2 Flow Rate FiO2 04/28/17 08:22 90 Nasal Cannula 3.00 04/28/17 06:00 70 04/28/17 05:00 70 18 149/63 (91) 91 Arterial Line 04/28/17 05:00 70 04/28/17 04:00 80 04/28/17 04:00 80 18 144/62 (89) 89 169/50 (89) 04/28/17 03:00 98.6 73 16 152/63 (92) 90 146/37 (73) 04/28/17 03:00 90 Nasal Cannula 3.00 04/28/17 03:00 70 04/28/17 03:00 73 04/28/17 02:00 71 04/28/17 02:00 71 18 144/62 (89) 90 148/38 (74) 04/28/17 01:00 71 04/28/17 01:00 71 18 159/66 (97) 90 142/33 (69) 04/28/17 00:00 71 18 145/60 (88) 91 140/36 (70) 04/28/17 00:00 71 04/27/17 23:20 98.9 79 16 137/60 (85) 92 140/35 (70) 04/27/17 23:20 75 04/27/17 23:20 92 Nasal Cannula 3.00 04/27/17 23:00 71 04/27/17 22:00 84 18 151/65 (93) 90 155/44 (81) 04/27/17 22:00 83 04/27/17 21:00 80 18 157/67 (97) 91 154/38 (76) 04/27/17 21:00 77 04/27/17 20:39 98 Nasal Cannula 3.00 04/27/17 20:00 82 18 156/67 (96) 94 165/44 (84) 04/27/17 20:00 87 04/27/17 19:30 Nasal Cannula 3.00 04/27/17 19:20 93 Nasal Cannula 4.00 04/27/17 19:20 98.6 76 16 156/67 (96) 93 160/38 (78) 04/27/17 19:20 76 04/27/17 19:00 84 04/27/17 18:00 83 04/27/17 17:20 80 04/27/17 16:00 82 04/27/17 15:16 94 Nasal Cannula 2.00 04/27/17 15:07 75 04/27/17 15:07 95 Nasal Cannula 4.00 04/27/17 15:07 97.7 68 18 150/67 (94) 95 177/72 (107) 04/27/17 15:07 74 04/27/17 14:30 69 04/27/17 13:00 94 Nasal Cannula 4.00 04/27/17 11:00 97.3 61 18 149/51 (83) 98 169/40 (83) 04/27/17 11:00 61 04/27/17 11:00 98 Simple Mask 8.00 04/27/17 11:00 64 04/27/17 10:05 97.2 74 18 131/52 (78) 97 154/37 (76) 04/27/17 10:05 71 04/27/17 10:05 97 Simple Mask 10.00 I/O 04/27/17 04/27/17 04/27/17 04/28/17 04/28/17 04/28/17 07:00 15:00 23:00 07:00 15:00 23:00 Intake Total 1190 ml 920 ml 2401 ml Output Total 1575 ml 500 ml 800 ml Balance -385 ml 420 ml 1601 ml Intake Oral 240 ml 480 ml 480 ml IV Total 250 ml 440 ml 1921 ml Other 700 ml Output Urine Total 1575 ml 500 ml 800 ml # Bowel Movements 0 0 Physical Exam GENERAL: Well-nourished, well-developed patient. SKIN: Warm and dry. HEAD: Normocephalic. EYES: No scleral icterus. No injection or drainage. NECK: Supple, trachea midline. No JVD or lymphadenopathy. CARDIOVASCULAR: Regular rate and rhythm without murmurs, gallops, or rubs. RESPIRATORY: Breath sounds equal bilaterally. No accessory muscle use. GASTROINTESTINAL: Abdomen soft, non-tender, nondistended. EXTREMITIES: No cyanosis, or edema. NEUROLOGICAL: Awake, alert, and oriented x 3. Non-focal. Laboratory Laboratory Tests Test 04/28/17 04:20 White Blood Count 10.1 TH/MM3 Red Blood Count 3.55 MIL/MM3 Hemoglobin 9.1 GM/DL Hematocrit 27.0 % Mean Corpuscular Volume 76.0 FL Mean Corpuscular Hemoglobin 25.7 PG Mean Corpuscular Hemoglobin Concent 33.9 % Red Cell Distribution Width 16.0 % Platelet Count 331 TH/MM3 Mean Platelet Volume 7.7 FL Blood Urea Nitrogen 6 MG/DL Creatinine 0.53 MG/DL Random Glucose 157 MG/DL Total Protein 5.8 GM/DL Albumin 2.4 GM/DL Calcium Level 8.3 MG/DL Alkaline Phosphatase 66 U/L Aspartate Amino Transf (AST/SGOT) 13 U/L Alanine Aminotransferase (ALT/SGPT) 21 U/L Total Bilirubin 0.4 MG/DL Sodium Level 134 MEQ/L Potassium Level 3.5 MEQ/L Chloride Level 101 MEQ/L Carbon Dioxide Level 23.5 MEQ/L Anion Gap 10 MEQ/L Estimat Glomerular Filtration Rate 111 ML/MIN Assessment and Plan Problem List: (1) Severe aortic stenosis ICD Codes: I35.0 - Nonrheumatic aortic (valve) stenosis Plan: s/p Left TF 23mm S3 Valve. Acute on chronic diastolic heart failure. Recommendations: 1. DAPT ASA and Plavix 2. Aggressive medical management for CAD 3. Encourage ambulation and incentive spirometry 4. PT/OT 5. Appreciate EP recs 6. D/C TPM 7. Lasix 20mg IV (2) Benign hypertension ICD Codes: I10 - Essential (primary) hypertension (3) Diabetes mellitus, type II ICD Codes: E11.9 - Type 2 diabetes mellitus without complications (4) Hyperlipidemia ICD Codes: E78.5 - Hyperlipidemia, unspecified (5) CHF exacerbation ICD Codes: I50.9 - Heart failure, unspecified (6) CAD (coronary artery disease) ICD Codes: I25.10 - Atherosclerotic heart disease of [place] coronary artery without angina pectoris (7) Diastolic CHF due to valvular disease ICD Codes: I38 - Endocarditis, valve unspecified; I50.30 - Unspecified diastolic (congestive) heart failure Bolivar Hardy MD Apr 28, 2017 08:38
[2017-04-28] MEDS ORDERED: ASPIRIN 81 MG CHEW TAB CHEW SCH (09:00)
[2017-04-28] MEDS ORDERED: CLOPIDOGREL 75 MG TAB PO SCH (09:00)
[2017-04-28] MEDS ORDERED: FERROUS SULFATE 325 MG (65 MG ELEMENTAL IRON) TAB PO SCH (09:00)
[2017-04-28] MEDS ORDERED: FUROSEMIDE 40 MG/4 ML VIAL IV PUSH ONE (09:30)
--- NOTE | 2017-04-28 12:01 | EKG ---
Date Performed: 04/28/2017 Time Performed: 05:55:22 PTAGE: 81 years EKG: Normal Sinus rhythm Diffuse nonspecific ST-T wave changes, which shows some mild variations compared to the prior tracin g. Possibly due to left ventricular hypertrophy. Clinical correlation needed. Abnormal ECG PREVIOUS TRACING : 04/27/2017 05.48 DOCTOR: Santosh Clemons Interpretating Date/Time 04/28/2017 12:00:59
[2017-04-28] MEDS ORDERED: IPRASOL INH (17:44)
[2017-04-28] MEDS ORDERED: PLAV75TA29 PO (17:44)
--- NOTE | 2017-04-28 17:48 | HHI.DS ---
Discharge Summary Admission Date Apr 27, 2017 at 05:07 Discharge Date: Apr 28, 2017 Admitting Diagnosis (1) Severe aortic stenosis Diagnosis: Principal ICD Codes: I35.0 - Nonrheumatic aortic (valve) stenosis (2) Atypical chest pain Diagnosis: Secondary ICD Codes: R07.89 - Other chest pain (3) Benign hypertension Diagnosis: Secondary ICD Codes: I10 - Essential (primary) hypertension (4) CAD (coronary artery disease) Diagnosis: Secondary ICD Codes: I25.10 - Atherosclerotic heart disease of [place] coronary artery without angina pectoris (5) Diabetes mellitus, type II Diagnosis: Secondary ICD Codes: E11.9 - Type 2 diabetes mellitus without complications (6) Hyperlipidemia Diagnosis: Secondary ICD Codes: E78.5 - Hyperlipidemia, unspecified (7) CHF exacerbation Diagnosis: Secondary ICD Codes: I50.9 - Heart failure, unspecified (8) Diastolic CHF due to valvular disease Diagnosis: Secondary ICD Codes: I38 - Endocarditis, valve unspecified; I50.30 - Unspecified diastolic (congestive) heart failure Procedures Left TF TAVR Brief History 81 y/o F with severe symptomatic admitted for TAVR CBC/BMP: 04/28/17 0420 04/28/17 0420 Significant Findings Laboratory Tests Test 04/27/17 05:35 04/28/17 04:20 Hemoglobin 11.3 GM/DL (11.6-15.3) 9.1 GM/DL (11.6-15.3) Hematocrit 33.2 % (35.0-46.0) 27.0 % (35.0-46.0) Mean Corpuscular Volume 75.5 FL (80.0-100.0) 76.0 FL (80.0-100.0) Mean Corpuscular Hemoglobin 25.7 PG (27.0-34.0) 25.7 PG (27.0-34.0) Platelet Count 469 TH/MM3 (150-450) Neutrophils (%) (Auto) 70.8 % (16.0-70.0) Monocytes (%) (Auto) 12.6 % (0.0-8.0) Monocytes # (Auto) 1.2 TH/MM3 (0-0.9) Random Glucose 154 MG/DL (74-106) 157 MG/DL (74-106) Sodium Level 132 MEQ/L (136-145) 134 MEQ/L (136-145) Chloride Level 94 MEQ/L (98-107) Estimat Glomerular Filtration Rate 68 ML/MIN (>89) Red Blood Count 3.55 MIL/MM3 (4.00-5.30) Blood Urea Nitrogen 6 MG/DL (7-18) Total Protein 5.8 GM/DL (6.4-8.2) Albumin 2.4 GM/DL (3.4-5.0) Calcium Level 8.3 MG/DL (8.5-10.1) Aspartate Amino Transf (AST/SGOT) 13 U/L (15-37) PE at Discharge GENERAL: Well-nourished, well-developed patient. SKIN: Warm and dry. HEAD: Normocephalic. EYES: No scleral icterus. No injection or drainage. NECK: Supple, trachea midline. No JVD or lymphadenopathy. CARDIOVASCULAR: Regular rate and rhythm without murmurs, gallops, or rubs. RESPIRATORY: Breath sounds equal bilaterally. No accessory muscle use. GASTROINTESTINAL: Abdomen soft, non-tender, nondistended. EXTREMITIES: No cyanosis, or edema. NEUROLOGICAL: Awake, alert, and oriented x 3. Non-focal. Hospital Course Ms. Lea underwent successful left TF placement of a 23mm S3 valve. She did well overnight. No complications. Evalauted by EP. TPM removed after 24hrs hours. Acute on chronic diastolic HF treated with IV Lasix. Ambulating without difficulty, chest pain free. Stable to be discharge home today. Pt Condition on Discharge: Good Discharge Disposition: Discharge Home Discharge Instructions DIET: Follow Instructions for: Heart Healthy Diet Speech Therapy-Diet Recommenda: Regular Activities you can perform: Weight Bearing as [place] Activities to avoid: Strenuous Activity New Medications: Clopidogrel (Plavix) 75 Mg Tab 75 MG PO DAILY for Chest Congestion/Cough for 30 Days, #30 TAB Ipratropium-Albuterol Neb (Duoneb) 0.5-2.5 Mg/3 Ml Neb 1 AMPULE INH Q6HR NEB PRN for SHORTNESS OF BREATH for 30 Days, #2 ML Continued Medications: Amlodipine (Amlodipine) 5 Mg Tab 5 MG PO DAILY for Blood Pressure Management, #30 TAB 0 Refills Aspirin (Aspirin) 81 Mg Chew 81 MG CHEW DAILY, TAB 0 Refills Atorvastatin (Atorvastatin) 10 Mg Tab 10 MG PO HS for Cholesterol Management, #30 TAB 0 Refills Azelastine Nasal [place] (Azelastine Nasal [place]) 0.1% [place] 2 SPRAY EACH NARE DAILY for Allergies, #1 BOTTLE 0 Refills Betamethasone Dipropionate Aug Topical (Betamethasone Dipropionate Aug Topical) 0.05% Cream 1 APPLIC TOPICAL BID for Dermatoses, #50 GM 0 Refills Calcium Carbonate-Vitamin D (Calcium 600+D 200) 600-200 Mg-Unit Tab 1 TAB PO BID for Nutritional Supplement, TAB 0 Refills Carvedilol (Carvedilol) 12.5 Mg Tab 12.5 MG PO BID, #60 TAB 0 Refills Cholecalciferol (Vitamin D3) 400 Unit Cap 800 UNITS PO DAILY for Nutritional Supplement, #1 BOTTLE 0 Refills Cyanocobalamin (B-12) 500 Mcg Subl 500 MCG SL DAILY for Nutritional Supplement, TAB.SL [address] (Esomeprazole DR) 40 Mg Capdr 40 MG PO DAILY, #30 CAP 0 Refills Ferrous Sulfate (Iron) 325 Mg Cap 325 MG PO DAILY for Nutritional Supplement, #30 TAB 0 Refills Furosemide (Furosemide) 40 Mg Tab 40 MG PO BID@,18 for Prevent Heart Failure, #60 TAB 11 Refills Isosorbide Mononitrate ER (Isosorbide Mononitrate ER) 60 Mg Tab 60 MG PO DAILY for Prevent Chest Pain, #30 TAB 0 Refills Nitroglycerin SL (Nitroglycerin SL) 0.4 Mg Subl 0.4 MG SL DIRECTED PRN for CHEST PAIN, #100 TAB.SL 0 Refills ONE TABLET UNDER THE TONGUE NEEDED FOR CHEST PAIN, MAY REPEAT EVERY FIVE MINUTES FOR A TOTAL OF 3 DOSES OR CALL 911 IF NO RELIEF Potassium Chloride Microencaps (Potassium Chloride Microencaps) 20 Meq Tab 20 MEQ PO DAILY for Electrolyte Replacement, #60 CAP 11 Refills Ramipril (Ramipril) 10 Mg Cap 10 MG PO BID, #60 CAP 0 Refills Sitagliptin-Metformin (Janumet) 50-1,000 Mg Tab 1 TAB PO BID for Blood Sugar Management, #60 TAB 0 Refills Ubidecarenone (Coenzyme Q-10) 50 Mg Capsule 100 MG PO DAILY [mvt iron folic acid ] () Bolivar Hardy MD Apr 28, 2017 17:48
== END 2017-04-28 19:30 | disposition home or self-care (01) | DRG 266 ==
LOC: HDIC 05:07 → HCVI 10:02 → HCPC 13:31
PROVIDERS: ADMIT Radiology Vascular & Interventional Radiology; ATTEND Radiology Vascular & Interventional Radiology
PROC: B24BZZ4 Ultrasonography of Heart with Aorta, Transesophageal (ICD-10-PCS; 2017-04-27)
PROC: 02RF38Z Replacement of Aortic Valve with Zooplastic Tissue, Percutaneous Approach (ICD-10-PCS; principal; 2017-04-27 08:00)
PROC: B3101ZZ Fluoroscopy of Thoracic Aorta using Low Osmolar Contrast (ICD-10-PCS; 2017-04-27 08:00)
PROC: 0T9B70Z Drainage of Bladder with Drainage Device, Via Natural or Artificial Opening (ICD-10-PCS; 2017-04-27 08:00)
DX: I35.0 Nonrheumatic aortic (valve) stenosis (principal); I50.33 Acute on chronic diastolic (congestive) heart failure; I21.4 Non-ST elevation (NSTEMI) myocardial infarction; E11.65 Type 2 diabetes mellitus with hyperglycemia; J44.9 Chronic obstructive pulmonary disease, unspecified; Z95.5 Presence of coronary angioplasty implant and graft; Z92.3 Personal history of irradiation; Z85.3 Personal history of malignant neoplasm of breast; I25.10 Atherosclerotic heart disease of native coronary artery without angina pectoris; E78.5 Hyperlipidemia, unspecified; I11.0 Hypertensive heart disease with heart failure; Z00.6 Encounter for examination for normal comparison and control in clinical research program
CPT/HCPCS: 33210; 33361; 80048; 80053; 82948; 85002; 85025; 85027; 85610; 85730; 86850; 86900; 86901; 86920; 92986; 93005; 94150; 94640; 94664; 94667; 94668; C1760; C1769; C1893; G0269; J1644; J1940; J2720; J3370; J7030; J7050; Q9967